=== PATIENT | female | born 1975 | race Hispanic/Latino ===

== ENCOUNTER 2016-04-01 11:50 | Emergency (ER) | payer SELFPAY ==
--- NOTE | 2016-04-01 12:40 | Emergency Department Report ---
Chief Complaint: Chest Pain Stated Complaint: ARMS TINGLING/NECK/LOWER BACK PAIN Time Seen by Provider: 04/01/16 12:34 - HPI History of Present Illness: 40-year-old female presents today with chest pain that started at midnight last night. Patient had aspirin with some relief. Also complaining of numbness in back, upper and lower extremities times one day. Positive for nausea. Denies shortness of breath or abdominal pain. - ROS Review of Systems: Per HPI - Exam Vital Signs: Vital Signs 04/01/16 11:58 Temperature 98.1 F Pulse Rate 63 Respiratory 18 Rate Blood Pressure 127/76 O2 Sat by Pulse 100 Oximetry Physical Exam: General: 40-year-old female in no acute distress. Well-developed, well- nourished. CV: Regular rate and rhythm. Lungs: Clear to auscultation bilaterally. Abdomen: No tenderness to palpation. MSE screening note: Focused history and physical exam performed. Due to findings the following was ordered: ED Disposition for MSE Condition: Stable
--- NOTE | 2016-04-01 13:14 | XRay Report ---
ROUTINE CHEST, TWO VIEWS: HISTORY: chest pain. The trachea, heart, mediastinal contour, lung christian and bony thorax are unremarkable. IMPRESSION: Unremarkable chest x-ray. No significant change since 01/18/16.
[2016-04-01 13:39] LABS: Eosinophils % (Auto) 1.8 % (0.0-4.3); Mean Corpuscular HGB Conc 33 % (30-34); Mean Corpuscular Hemoglobin 31 pg (28-32); Mean Corpuscular Volume 93 fl (79-97); Platelet Count 269 K/mm3 (140-440); Red Blood Count 4.52 M/mm3 (3.65-5.03); White Blood Count 8.2 K/mm3 (4.5-11.0)
[2016-04-01 13:52] LABS: INR 1.06 (0.87-1.13)
[2016-04-01 13:53] LABS: Partial Thromboplastin Time 27.9 Sec. (24.2-36.6)
[2016-04-01 13:58] LABS: Anion Gap 14 mmol/L; BUN/Creatinine Ratio 15.71; Blood Urea Nitrogen 11 mg/dL (7-17); Calcium 8.5 mg/dL (8.4-10.2); Carbon Dioxide 25 mmol/L (22-30); Chloride 100.4 mmol/L (98-107); Glucose 90 mg/dL (65-100); Potassium 4.7 mmol/L (3.6-5.0); Sodium 135 mmol/L (137-145)
[2016-04-01 14:02] LABS: Alanine Aminotransferase 14 units/L (7-56); Albumin 3.6 g/dL (3.9-5); Albumin/Globulin Ratio 1.4 %; Alkaline Phosphatase 45 units/L (35-129); Bilirubin,Total 0.4 mg/dL (0.1-1.2); Creatine Kinase 101 units/L (30-135); Lipase 26 units/L (13-60); Total Protein 6.1 g/dL (6.3-8.2)
[2016-04-01 14:21] LABS: Bilirubin,Direct < 0.2 mg/dL (0-0.2)
[2016-04-01 15:09] LABS: Bilirubin,Indirect 0.2 mg/dL
[2016-04-02] MEDS ORDERED: TORADOL IM ONE (02:02)
[2016-04-02] MEDS ORDERED: NORCO 5/325 PO ONE (02:02)
--- NOTE | 2016-04-02 02:07 | Emergency Department Report ---
ED Chest Pain HPI - General Chief Complaint: Chest Pain Stated Complaint: ARMS TINGLING/NECK/LOWER BACK PAIN Time Seen by Provider: 04/01/16 12:34 Source: patient Mode of arrival: Ambulatory Limitations: No Limitations - History of Present Illness Initial Comments: This is a 40-year-old female presents to the emergency department, driven in by her boyfriend, with complaints of a tingling sensation down both arms and legs as well as some sharp chest pains. These symptoms began about 24 hours ago. She tried some aspirin this morning for her symptoms without any relief. She says that the tingling sensation is really like a throbbing and some decreased sensation. She denies any slurred speech, headache, vision change or any neurological deficits otherwise. The chest pain is sharp and is reproducible to palpation. She denies any shortness of breath, vomiting, back pain or diaphoresis. She does have some occasional nausea. She has a past medical history of asthma denies any history of VA, CVA, PE/DVT. She is a tobacco smoker. She admits to occasional marijuana use but otherwise no other illicit drugs. She does not have a primary care doctor. No recent travel or sick contacts at home. Severity scale (0 -10): 10 - Related Data Previous Rx's Medication Instructions Recorded Last Taken Type ALBUTEROL Inhaler [ProAir HFA 2 puff IH QID PRN #1 inhalation 12/10/14 Unknown Rx Inhaler] Acetaminophen/Codeine [Tylenol #3] 1 tab PO Q6H PRN #14 tab 12/10/14 Unknown Rx Azithromycin [Zithromax Z-JUAN FRANCISCO] 500 mg PO DAILY #1 pack 12/10/14 Unknown Rx Prednisone [predniSONE 10 mg 10 mg PO .TAPER #1 tab.ds.pk 12/10/14 Unknown Rx (6-Day Pack, 21 Tabs)] methOCARBAMOL [Robaxin TAB] 500 mg PO BID #10 tab 01/19/15 Unknown Rx traMADol [Ultram 50 MG tab] 50 mg PO Q6HR PRN #20 tablet 03/21/15 Unknown Rx Ibuprofen [Motrin 800 MG tab] 800 mg PO Q8HR PRN #30 tablet 10/05/15 Unknown Rx Sulfamethoxazole/Trimethoprim 1 each PO BID #20 tablet 10/05/15 Unknown Rx [Bactrim DS TAB] ALBUTEROL Inhaler [ProAir HFA 2 puff IH QID PRN #1 inhalation 01/18/16 Unknown Rx Inhaler] Montelukast [Singulair] 10 mg PO QPM #30 tablet 01/18/16 Unknown Rx methylPREDNISolone [Medrol] 4 mg PO QAM #21 tab.ds.pk 01/18/16 Unknown Rx HYDROcodone/APAP 5-325 [Ferdinand 1 each PO Q6HR PRN #14 tablet 04/02/16 Unknown Rx 5/325] Ibuprofen [Motrin] 800 mg PO Q8HR PRN #20 tablet 04/02/16 Unknown Rx Allergies Allergy/AdvReac Type Severity Reaction Status Date / Time No Known Allergies Allergy Unverified 12/10/14 09:23 KIKE score - Kike Score Age > 65: (0) No Aspirin use within the Past 7 Days: (1) Yes 3 or more CAD Risk Factors: (0) No 2 or more Angina events in past 24 hrs: (0) No Known CAD with more than 50% Stenosis: (0) No Elevated Cardiac Markers: (0) No ST Deviation Greater than 0.5mm: (0) No KIKE Score: 1 ED Review of Systems ROS: Stated complaint: ARMS TINGLING/NECK/LOWER BACK PAIN Other details as noted in HPI Comment: All other systems reviewed and negative Constitutional: denies: chills, fever Eyes: denies: eye pain, eye discharge, vision change ENT: denies: ear pain, throat pain Respiratory: denies: cough, shortness of breath, wheezing Cardiovascular: chest pain. denies: palpitations Gastrointestinal: nausea. denies: abdominal pain, vomiting Genitourinary: denies: urgency, dysuria, discharge Musculoskeletal: denies: back pain, joint swelling Skin: denies: rash, lesions Neurological: paresthesias. denies: headache, weakness ED Past Medical Hx - Past Medical History Hx Asthma: Yes - Social History Smoking Status: Current Every Day Smoker Substance Use Type: None - Medications Home Medications: Home Medications Medication Instructions Recorded Confirmed Last Taken Type ALBUTEROL Inhaler [ProAir HFA 2 puff IH QID PRN #1 inhalation 12/10/14 12/12/14 Unknown Rx Inhaler] Acetaminophen/Codeine [Tylenol #3] 1 tab PO Q6H PRN #14 tab 12/10/14 12/12/14 Unknown Rx Azithromycin [Zithromax Z-JUAN FRANCISCO] 500 mg PO DAILY #1 pack 12/10/14 12/12/14 Unknown Rx Prednisone [predniSONE 10 mg 10 mg PO .TAPER #1 tab.ds.pk 12/10/14 12/12/14 Unknown Rx (6-Day Pack, 21 Tabs)] methOCARBAMOL [Robaxin TAB] 500 mg PO BID #10 tab 01/19/15 Unknown Rx traMADol [Ultram 50 MG tab] 50 mg PO Q6HR PRN #20 tablet 03/21/15 Unknown Rx Ibuprofen [Motrin 800 MG tab] 800 mg PO Q8HR PRN #30 tablet 10/05/15 Unknown Rx Sulfamethoxazole/Trimethoprim 1 each PO BID #20 tablet 10/05/15 Unknown Rx [Bactrim DS TAB] ALBUTEROL Inhaler [ProAir HFA 2 puff IH QID PRN #1 inhalation 01/18/16 Unknown Rx Inhaler] Montelukast [Singulair] 10 mg PO QPM #30 tablet 01/18/16 Unknown Rx methylPREDNISolone [Medrol] 4 mg PO QAM #21 tab.ds.pk 01/18/16 Unknown Rx HYDROcodone/APAP 5-325 [Ferdinand 1 each PO Q6HR PRN #14 tablet 04/02/16 Unknown Rx 5/325] Ibuprofen [Motrin] 800 mg PO Q8HR PRN #20 tablet 04/02/16 Unknown Rx ED Physical Exam - General Limitations: No Limitations - Other Other exam information: GENERAL: The patient is well-developed well-nourished. HEENT: Normocephalic. Atraumatic. Extraocular motions are intact. Patient has moist mucous membranes. Pupils equal reactive to light bilaterally. NECK: Supple. Trachea is midline. Full range of motion. CHEST/LUNGS: Clear to auscultation. There is no respiratory distress noted. Chest pain is reproducible to palpation of the midsternal region of the chest wall. HEART/CARDIOVASCULAR: Regular. There is no tachycardia. There is no gallop rub or murmur. ABDOMEN: Abdomen is soft, nontender. Patient has normal bowel sounds. There is no abdominal distention. SKIN: There is no rash. There is no edema. There is no diaphoresis. NEURO: The patient is awake, alert, and oriented. The patient is cooperative. The patient has no focal neurologic deficits. The patient has normal speech. Cranial nerves II through XII grossly intact. MUSCULOSKELETAL: There is no tenderness or deformity. There is no limitation range of motion. There is no evidence of acute injury. Muscle strength 5 out of 5 upper and lower semis bilaterally. Cap refill less than 2 seconds. Radial pulses +2 over 4 bilaterally. ED Course Vital Signs 04/01/16 04/01/16 11:58 22:52 Temperature 98.1 F 98.3 F Pulse Rate 63 75 Respiratory 18 18 Rate Blood Pressure 127/76 135/89 O2 Sat by Pulse 100 98 Oximetry ED Medical Decision Making - Lab Data Result diagrams: 04/01/16 13:22 04/01/16 13:22 - EKG Data -: EKG Interpreted by Me EKG shows normal: sinus rhythm, axis, intervals, QRS complexes, ST-T waves Rate: normal - EKG Data When compared to previous EKG there are: previous EKG unavailable Interpretation: normal EKG - Radiology Data Radiology results: image reviewed interpreted by me: Chest x-ray did not show any acute process. Heart is normal shape and size. No effusions. No pneumothorax. No signs of pneumonia seen. - Medical Decision Making 40-year-old female presents to the emergency Department with a 24-hour history of some chest pain and what appears to be either paresthesias versus some neuropathy. She does not have any focal, motor or sensory deficits in her cranial nerves are intact. There has been no trauma. Patient has a KIKE score of 1 due to the fact that she took some aspirin but otherwise she would be 0. She has negative on the pulmonary embolism rule out criteria and low on the Wells score criteria. EKG is normal without ST elevation VA, ischemia or dysrhythmia. Patient's labs have been unremarkable including negative troponins 3. Chest x-ray does not show any acute process including no pneumonia, CHF or pneumothorax. Patient appears safe for discharge home at this time. Whether she is having paresthesias versus neuropathy it does not appear to be any emergent condition. She is not having any back pain, numbness , paresthesias, problems with bowel or bladder. She does not appear to have any emergent neurological or back condition such as cauda equina, epidural abscess or cord compression syndrome. She will be given referrals for primary care clinics for follow-up. She will be discharged home with some pain medication. She will return to the ER with any worsening of her symptoms or any acute distress. - Differential Diagnosis neuropathy, paresthesias, VA, costochondritis Critical Care Time: No Critical care attestation.: If time is entered above; I have spent that time in minutes in the direct care of this critically ill patient, excluding procedure time. ED Disposition Clinical Impression: Paresthesias, Costochondritis, Neuropathy Disposition: DISCHARGED TO HOME OR SELFCARE Is pt being admited?: No Does the pt Need Aspirin: No Condition: Stable Instructions: Noncardiac Chest Pain (ED), Costochondritis (ED), Paresthesia (ED ) Additional Instructions: Please follow up with one of the primary care clinics that you have been given a referral to. Return to the emergency department with any worsening of your symptoms or any acute distress. You've been prescribed a medication that is sedating. Therefore this medication cannot be mixed with alcohol, or taken prior to driving, working, or being responsible for children. Prescriptions: Ibuprofen [Motrin] 800 mg PO Q8HR PRN #20 tablet PRN Reason: Pain HYDROcodone/APAP 5-325 [Ferdinand 5/325] 1 each PO Q6HR PRN #14 tablet PRN Reason: Pain Referrals: PRIMARY CARE, [Primary Care Provider] - 3-[address] [facility] [Outside] - 3-5 Days [facility] [Outside] - 3-5 Days [facility] [Outside] - 3-5 Days [facility] [Outside] - 3-5 Days Time of Disposition: 02:09
[2016-04-02 02:49] VITALS: BP 130/68
== END 2016-04-02 02:49 | disposition home or self-care (01) ==
LOC: ED 11:50
DX: M94.0 Chondrocostal junction syndrome [Tietze] (principal); R20.9 Unspecified disturbances of skin sensation; G62.9 Polyneuropathy, unspecified; J45.909 Unspecified asthma, uncomplicated; F17.200 Nicotine dependence, unspecified, uncomplicated
CPT/HCPCS: 36415; 71020; 80048; 80074; 82550; 82553; 83690; 84484; 85025; 85610; 85730; 93005; 93010; 96372; 99284; J1885

== ENCOUNTER 2016-04-08 19:25 | Emergency (ER) | payer OTHER ==
[2016-04-08 21:11] LABS: Basophils % (Auto) 0.5 % (0.0-1.8); Eosinophils % (Auto) 0.9 % (0.0-4.3); Hematocrit 43.7 % (30.3-42.9); Mean Corpuscular HGB Conc 32 % (30-34); Mean Corpuscular Hemoglobin 30 pg (28-32); Mean Corpuscular Volume 93 fl (79-97); Platelet Count 266 K/mm3 (140-440); Red Blood Count 4.71 M/mm3 (3.65-5.03); Red Cell Distribution Width 13.8 % (13.2-15.2); White Blood Count 12.4 K/mm3 (4.5-11.0)
[2016-04-08 21:26] LABS: Anion Gap 17 mmol/L; BUN/Creatinine Ratio 16.25; Blood Urea Nitrogen 13 mg/dL (7-17); Calcium 8.8 mg/dL (8.4-10.2); Carbon Dioxide 26 mmol/L (22-30); Chloride 100.7 mmol/L (98-107); Glucose 98 mg/dL (65-100); Potassium 4.4 mmol/L (3.6-5.0); Sodium 139 mmol/L (137-145)
[2016-04-09 03:28] VITALS: BP 120/66
--- NOTE | 2016-04-09 03:31 | Emergency Department Report ---
ED Chest Pain HPI - General Chief Complaint: Chest Pain Stated Complaint: CHEST PAIN, PAIN IN ARMS AND NECK Time Seen by Provider: 04/09/16 03:17 Source: patient, family Mode of arrival: Ambulatory Limitations: No Limitations - History of Present Illness Initial Comments: Patient reports long-standing history of chronic back pain. She states today she started having back pain with radiation to her chest. She feels it under the right breast. Somewhat worse with palpation. She denies any change of the pain with movement of the arms however. She denies any shortness of breath associated with this denies any paresis. Denies any specific cardiac history that she is aware of. She is a heavy smoker. MD Complaint: chest pain Onset/Timin -: Gradual, days(s) Onset: during rest Pain Location: right chest Pain Radiation: none Severity: moderate Severity scale (0 -10): 10 Quality: tightness Consistency: constant Improves With: nothing Worsens With: other (palpation) re: denies: nausea, vomting, diaphoresis, dyspnea Other Symptoms: denies: cough, fever Treatments Prior to Arrival: none Aspirin use within the Past 7 Days: (0) No - Related Data On Oral Contraceptives: No Home Medications Medication Instructions Recorded Confirmed Last Taken No Known Home Medications [No 04/09/16 04/09/16 Unknown Reported Home Medications] Allergies Allergy/AdvReac Type Severity Reaction Status Date / Time No Known Allergies Allergy Verified 04/08/16 19:47 KIKE score - Kike Score Age > 65: (0) No Aspirin use within the Past 7 Days: (0) No 3 or more CAD Risk Factors: (0) No 2 or more Angina events in past 24 hrs: (1) Yes Known CAD with more than 50% Stenosis: (0) No Elevated Cardiac Markers: (0) No ST Deviation Greater than 0.5mm: (0) No KIKE Score: 1 ED Review of Systems ROS: Stated complaint: CHEST PAIN, PAIN IN ARMS AND NECK Other details as noted in HPI Constitutional: denies: chills, fever Eyes: denies: eye pain, eye discharge, vision change ENT: denies: ear pain, throat pain Respiratory: denies: cough, shortness of breath, wheezing Cardiovascular: chest pain. denies: palpitations Endocrine: no symptoms reported Gastrointestinal: denies: abdominal pain, nausea, diarrhea Genitourinary: denies: urgency, dysuria, discharge Musculoskeletal: back pain. denies: joint swelling, arthralgia Skin: denies: rash, lesions Neurological: denies: headache, weakness, paresthesias Psychiatric: denies: anxiety, depression Hematological/Lymphatic: denies: easy bleeding, easy bruising ED Past Medical Hx - Past Medical History Hx Asthma: Yes - Surgical History Past Surgical History?: No - Social History Smoking Status: Current Every Day Smoker Substance Use Type: None - Medications Home Medications: Home Medications Medication Instructions Recorded Confirmed Last Taken Type No Known Home Medications [No 04/09/16 04/09/16 Unknown History Reported Home Medications] ED Physical Exam - General Limitations: No Limitations General appearance: alert, in no apparent distress - Head Head exam: Present: atraumatic, normocephalic - Eye Eye exam: Present: normal appearance - ENT ENT exam: Present: mucous membranes moist - Neck Neck exam: Present: normal inspection - Respiratory Respiratory exam: Present: normal lung sounds bilaterally. Absent: respiratory distress - Cardiovascular Cardiovascular Exam: Present: regular rate, normal rhythm, other (mild chest wall tenderness on the right aspect of chest. No bony step-off. No crepitance.) . Absent: systolic murmur, diastolic murmur, rubs, gallop - GI/Abdominal GI/Abdominal exam: Present: soft, normal bowel sounds - Extremities Exam Extremities exam: Present: normal inspection - Back Exam Back exam: Present: normal inspection, vertebral tenderness. Absent: muscle spasm, paraspinal tenderness - Neurological Exam Neurological exam: Present: alert, oriented X3, other (moving all extremities appropriately. Is fairly slow and demonstrates a somewhat antalgic gait.) - Psychiatric Psychiatric exam: Present: normal affect, normal mood - Skin Skin exam: Present: warm, dry, intact, normal color. Absent: rash ED Course Vital Signs 04/08/16 04/09/16 04/09/16 19:48 00:39 00:47 Temperature 98.3 F 98.6 F Pulse Rate 96 H 76 79 Respiratory 16 10 L 18 Rate Blood Pressure 124/79 Blood Pressure 119/75 [Right] O2 Sat by Pulse 98 98 100 Oximetry 04/09/16 04/09/16 04/09/16 01:00 01:31 02:01 Temperature Pulse Rate 72 73 72 Respiratory 13 16 13 Rate Blood Pressure 116/67 116/67 116/67 Blood Pressure [Right] O2 Sat by Pulse 98 98 99 Oximetry 04/09/16 04/09/16 02:31 03:01 Temperature Pulse Rate 69 64 Respiratory 14 15 Rate Blood Pressure 132/66 120/66 Blood Pressure [Right] O2 Sat by Pulse 96 98 Oximetry - Reevaluation(s) Reevaluation #1: 04/09/16 05:28 ECG here is unremarkable. Patient has a couple of risk factors but in general is low risk in my mind. Her repeat troponins are negative. She is PERC negative I have low suspicion for PE. Patient's pain seems more musculoskeletal in nature. I feel that she has some trigger points that causes her pain and question whether this could be fibromyalgia though I shudder to think of it. I did consider pleurisy is a possibility. Her symptoms are not classical for this but this may be the etiology. Chest x-ray reviewed from 7 days ago this was an unremarkable x-ray. The rest of her labs are normal as well. Given reassurance. We'll trial on anti-inflammatory medication. I did strongly encourage her to get a primary physician. I did also strongly encouraged smoking cessation. 04/09/16 05:30 ED Medical Decision Making - Lab Data Result diagrams: 04/08/16 20:52 04/08/16 20:52 - EKG Data -: EKG Interpreted by Me EKG shows normal: sinus rhythm, axis, intervals, QRS complexes, ST-T waves Rate: normal - EKG Data Interpretation: normal EKG Critical care attestation.: If time is entered above; I have spent that time in minutes in the direct care of this critically ill patient, excluding procedure time. ED Disposition Clinical Impression: Musculoskeletal chest pain Back pain Qualifiers: Back pain location: thoracic back pain Chronicity: chronic Back pain laterality : midline Qualified Code(s): M54.6 - Pain in thoracic spine Disposition: DISCHARGED TO HOME OR SELFCARE Is pt being admited?: No Does the pt Need Aspirin: No Condition: Stable Instructions: Thoracic Pain (ED) Additional Instructions: Try ibuprofen 400mg 4x a day for the next week. This may help if your chest discomfort is due to a musculoskeletal reason or pleurisy. Stop smoking. Referrals: PRIMARY CARE, [Primary Care Provider] - 3-5 Days Time of Disposition: 03:35
[2016-04-09] MEDS: TORADOL IV ONE (03:40)
== END 2016-04-09 03:49 | disposition home or self-care (01) ==
LOC: ED 19:25
DX: R07.89 Other chest pain (principal); M54.6 Pain in thoracic spine; J45.909 Unspecified asthma, uncomplicated; F17.200 Nicotine dependence, unspecified, uncomplicated
CPT/HCPCS: 36415; 80048; 84484; 85025; 93005; 93010; 96374; 99284; J1885

== ENCOUNTER 2016-11-12 19:22 | Emergency (ER) | payer SELFPAY ==
[2016-11-13] MEDS ORDERED: TESSALON PERLES PO ONE (00:14)
[2016-11-13] MEDS ORDERED: TORADOL IM ONE (00:14)
[2016-11-13 00:21] VITALS: BP 125/74
--- NOTE | 2016-11-13 00:28 | Emergency Department Report ---
- General Chief Complaint: Upper Respiratory Infection Stated Complaint: FEVER,SORENESS Time Seen by Provider: 11/13/16 00:09 Source: patient Mode of arrival: Ambulatory Limitations: No Limitations - History of Present Illness Initial Comments: This is a 40-year-old female nontoxic, well nourished in appearance, no acute signs of distress presents to the ED complaining of fever, body aches, productive cough, and sore throat 2 weeks. Patient stated she had emesis 2 times after coughing. Patient denies any abdominal pain nausea or vomiting. Patient describes cough production as yellow/green mucus production. Patient states subjective fever and has been taking [id number] Tylenol with last dose 1 hour prior to arrival to the emergency room. Patient denies sick contact. Denies hemoptysis, nausea, wheezing, vomiting, stiff neck, headache, numbness, tingling, chest pain, shortness of breath, calf pain, calf tenderness , chills. Patient denies any allergies. Past medical history includes asthma. Patient denies recent travels, long car rides or recent hospital stays. MD Complaint: fever, cough, sore throat, rhinorrhea, nasal congestion -: Gradual, week(s) (2) Severity: mild Severity scale (0 -10): 6 Quality: other (sensation of swallowing razor blades) Consistency: constant Improves With: nothing Worsens With: nothing Associated Symptoms: fever, rhinorrhea, nasal congestion, cough. denies: chills , myalgias, diaphoresis, headache, stiff neck, chest pain, shortness of breath, abdominal pain, vomiting, diarrhea, dysuria, rash, confusion, right sweats, weight loss, epistaxis, hoarseness, ear pain Treatments Prior to Arrival: none - Related Data Previous Rx's Medication Instructions Recorded Last Taken Type Azithromycin [Zithromax Z-JUAN FRANCISCO] 250 mg PO DAILY #6 tablet 11/13/16 Unknown Rx Benzonatate [Tessalon Perles] 100 mg PO Q8HR 7 Days 11/13/16 Unknown Rx Ibuprofen [Motrin 600 MG tab] 600 mg PO Q8H PRN #30 tablet 11/13/16 Unknown Rx Allergies Allergy/AdvReac Type Severity Reaction Status Date / Time No Known Allergies Allergy Verified 04/08/16 19:47 ED Review of Systems ROS: Stated complaint: FEVER,SORENESS Other details as noted in HPI Constitutional: denies: chills, fever Eyes: denies: eye pain, eye discharge, vision change ENT: throat pain. denies: ear pain Respiratory: cough. denies: shortness of breath, wheezing Cardiovascular: denies: chest pain, palpitations Endocrine: no symptoms reported Gastrointestinal: denies: abdominal pain, nausea, diarrhea Genitourinary: denies: urgency, dysuria, discharge Musculoskeletal: denies: back pain, joint swelling, arthralgia Skin: denies: rash, lesions Neurological: denies: headache, weakness, paresthesias Psychiatric: denies: anxiety, depression Hematological/Lymphatic: denies: easy bleeding, easy bruising ED Past Medical Hx - Past Medical History Previous Medical History?: Yes Hx Asthma: Yes - Surgical History Past Surgical History?: No - Social History Smoking Status: Current Every Day Smoker Substance Use Type: None - Medications Home Medications: Home Medications Medication Instructions Recorded Confirmed Last Taken Type Azithromycin [Zithromax Z-JUAN FRANCISCO] 250 mg PO DAILY #6 tablet 11/13/16 Unknown Rx Benzonatate [Tessalon Perles] 100 mg PO Q8HR 7 Days 11/13/16 Unknown Rx Ibuprofen [Motrin 600 MG tab] 600 mg PO Q8H PRN #30 tablet 11/13/16 Unknown Rx ED Physical Exam - General Limitations: No Limitations General appearance: alert, in no apparent distress - Head Head exam: Present: atraumatic, normocephalic, normal inspection - Eye Eye exam: Present: normal appearance, PERRL, EOMI. Absent: scleral icterus, conjunctival injection, nystagmus, periorbital swelling, periorbital tenderness - ENT ENT exam: Present: normal exam, mucous membranes moist, TM's normal bilaterally , normal external ear exam - Expanded ENT Exam Expanded Ear exam: Present: normal external inspection Mouth exam: Present: normal external inspection, tongue normal. Absent: drooling, trismus, muffled voice, tongue elevation, laceration Teeth exam: Present: dental caries Throat exam: Positive: tonsillar erythema, other (uvula midline. No abscess or swelling noted.). Negative: tonsillomegaly, tonsillar exudate, R peritonsillar mass, L peritonsillar mass - Neck Neck exam: Present: normal inspection, full ROM. Absent: tenderness, meningismus, lymphadenopathy, thyromegaly - Respiratory Respiratory exam: Present: normal lung sounds bilaterally. Absent: respiratory distress, wheezes, rales, rhonchi, stridor, chest wall tenderness, accessory muscle use, decreased breath sounds, prolonged expiratory - Cardiovascular Cardiovascular Exam: Present: regular rate, normal rhythm, normal heart sounds. Absent: bradycardia, tachycardia, irregular rhythm, systolic murmur, diastolic murmur, rubs, gallop - GI/Abdominal GI/Abdominal exam: Present: soft, normal bowel sounds. Absent: distended, tenderness, guarding, rebound, rigid, diminished bowel sounds - Rectal Rectal exam: Present: deferred - Extremities Exam Extremities exam: Present: normal inspection, full ROM, normal capillary refill. Absent: tenderness, pedal edema, joint swelling, calf tenderness - Back Exam Back exam: Present: normal inspection, full ROM. Absent: tenderness, CVA tenderness (R), CVA tenderness (L), muscle spasm, paraspinal tenderness, vertebral tenderness, rash noted - Neurological Exam Neurological exam: Present: alert, oriented X3, CN II-XII intact, normal gait, reflexes normal - Psychiatric Psychiatric exam: Present: normal affect, normal mood - Skin Skin exam: Present: warm, dry, intact, normal color. Absent: rash ED Course Vital Signs 11/12/16 19:47 Temperature 98.3 F Pulse Rate 81 Respiratory 20 Rate Blood Pressure 125/74 O2 Sat by Pulse 95 Oximetry - Reevaluation(s) Reevaluation #1: 11/13/16 00:28 Patient is speaking in full sentences with no signs of distress noted. Critical care attestation.: If time is entered above; I have spent that time in minutes in the direct care of this critically ill patient, excluding procedure time. ED Disposition Clinical Impression: Upper respiratory infection Qualifiers: URI type: unspecified URI Qualified Code(s): J06.9 - Acute upper respiratory infection, unspecified Disposition: DC-01 TO HOME OR SELFCARE Is pt being admited?: No Does the pt Need Aspirin: No Condition: Stable Instructions: Benzonatate (By mouth), Ibuprofen (By mouth), Azithromycin (By mouth) Additional Instructions: Follow-up with a primary care doctor in 3-5 days or if symptoms worsen or continue return to emergency room as was possible. Prescriptions: Azithromycin [Zithromax Z-JUAN FRANCISCO] 250 mg PO DAILY #6 tablet Benzonatate [Tessalon Perles] 100 mg PO Q8HR 7 Days Ibuprofen [Motrin 600 MG tab] 600 mg PO Q8H PRN #30 tablet PRN Reason: Pain Referrals: PRIMARY CAREMD [Primary Care Provider] - 3-5 Days MISTY MARTIN MD [Staff Physician] - 3-5 Days [facility] [Outside] - 3-5 Days [facility] [Outside] - 3-5 Days Forms: Work/School Release Form(ED)
--- NOTE | 2016-11-13 01:34 | XRay Report ---
FINAL REPORT PROCEDURE: XR CHEST ROUTINE 2V TECHNIQUE: PA and lateral chest radiographs were obtained. CPT 98259 HISTORY: cough COMPARISON: No prior studies are available for comparison. FINDINGS: Heart: Normal. Mediastinum/Vessels: Normal. Lungs/Pleural space: Normal. Bony thorax: No acute osseous abnormality. Other: IMPRESSION: Normal examination.
== END 2016-11-13 02:00 | disposition home or self-care (01) ==
LOC: ED 19:22
DX: J06.9 Acute upper respiratory infection, unspecified (principal); J45.909 Unspecified asthma, uncomplicated; F17.200 Nicotine dependence, unspecified, uncomplicated
CPT/HCPCS: 71020; 87400; 96372; 99283; J1885

== ENCOUNTER 2017-03-26 09:37 | Emergency (ER) | payer SELFPAY ==
[2017-03-26] MEDS ORDERED: NACL 0.9% 1000 ML 1,000 ML IV ONE ×4 (10:37→22:18)
[2017-03-26 11:25] LABS: Basophils % (Auto) 0.5 % (0.0-1.8); Eosinophils % (Auto) 0.1 % (0.0-4.3); Hematocrit 40.6 % (30.3-42.9); Hemoglobin 13.7 gm/dl (10.1-14.3); Lymphocytes # (Auto) 0.5 K/mm3 (1.2-5.4); Lymphocytes % (Auto) 9.5 % (13.4-35.0); Mean Corpuscular HGB Conc 34 % (30-34); Mean Corpuscular Hemoglobin 31 pg (28-32); Mean Corpuscular Volume 93 fl (79-97); Monocytes # (Auto) 0.3 K/mm3 (0.0-0.8); Monocytes % (Auto) 5.5 % (0.0-7.3); Platelet Count 197 K/mm3 (140-440); Red Blood Count 4.35 M/mm3 (3.65-5.03); Red Cell Distribution Width 13.6 % (13.2-15.2)
[2017-03-26 11:32] LABS: INR 0.98 (0.87-1.13)
[2017-03-26 11:33] LABS: Partial Thromboplastin Time 28.6 Sec. (24.2-36.6)
[2017-03-26 11:47] LABS: Alanine Aminotransferase 11 units/L (7-56); Albumin 3.8 g/dL (3.9-5); BUN/Creatinine Ratio 9; Blood Urea Nitrogen 6 mg/dL (7-17); Calcium 7.7 mg/dL (8.4-10.2); Hemolysis Index 4; Lipase 25 units/L (13-60)
[2017-03-26] MEDS ORDERED: ZOFRAN IV ONE (20:37)
[2017-03-26] MEDS ORDERED: TORADOL IV ONE (20:37)
[2017-03-26] MEDS ORDERED: TYLENOL PO ONE (20:37)
[2017-03-26] MEDS ORDERED: MORPHINE IV ONE (20:38)
[2017-03-26] MEDS ORDERED: K-DUR PO ONE (20:39)
[2017-03-26] MEDS ORDERED: TESSALON PERLES PO ONE (20:46)
--- NOTE | 2017-03-26 20:50 | Emergency Department Report ---
ED Fever HPI - General Chief Complaint: GI Bleed Stated Complaint: THROWING UP BLOOD Time Seen by Provider: 03/26/17 20:16 Source: patient, RN notes reviewed Exam Limitations: no limitations - History of Present Illness Initial Comments: 41-year-old female with past medical history of asthma presents to the hospital with complaints of vomiting with by mouth intolerance since 7:30 AM. Patient states she vomited a clot of blood and subsequently vomiting episodes have been blood tinged. Patient complains of generalized abdominal soreness for February 15 in intensity from vomiting and generalized body aches. Positive lightheadedness reported. Patient has had a cough productive of clear sputum for several days and developed a fever here in the ED. No sick contacts or recent travel reported. Patient did not get a flu shot this season. No complaints of diarrhea, melena, or hematochezia. ED Review of Systems ROS: Stated complaint: THROWING UP BLOOD Other details as noted in HPI Comment: All other systems reviewed and negative Other: Constitutional: As per HPI Eyes: No eye pain visual changes or discharge ENT: No ear pain or throat pain Neck: Denies pain Respiratory: Denies shortness of breath Cardiovascular: Denies chest pain, palpitations, syncope GI: As per HPI : Denies dysuria Musculoskeletal: Denies back pain, joint swelling Skin: Denies rash, lesions, erythema Neurologic: Denies headache, numbness, weakness Psychiatric: Denies suicidal ideation, hallucinations Generalized body ED Past Medical Hx - Past Medical History Previous Medical History?: Yes Hx Asthma: Yes - Surgical History Past Surgical History?: No - Social History Smoking Status: Current Every Day Smoker Substance Use Type: Non Opiate Pain - Medications Home Medications: Home Medications Medication Instructions Recorded Confirmed Last Taken Type Azithromycin [Zithromax Z-JUAN FRANCISCO] 250 mg PO DAILY #6 tablet 11/13/16 Unknown Rx Benzonatate [Tessalon Perles] 100 mg PO Q8HR 7 Days capsule 11/13/16 Unknown Rx Ibuprofen [Motrin 600 MG tab] 600 mg PO Q8H PRN #30 tablet 11/13/16 Unknown Rx HYDROcodone/APAP 5-325 [[place] 1 each PO Q6HR PRN #20 tablet 03/27/17 Unknown Rx 5/325] Ibuprofen [Motrin] 800 mg PO Q8HR PRN #30 tablet 03/27/17 Unknown Rx Ondansetron [Zofran Odt] 4 mg PO Q8HR PRN #20 tab.rapdis 03/27/17 Unknown Rx Oseltamivir [Tamiflu] 75 mg PO BID #10 cap 03/27/17 Unknown Rx ED Physical Exam - General Limitations: No Limitations - Other Other exam information: General: No limitations, patient is alert in no acute distress Head exam: Atraumatic, normocephalic Eyes exam: Normal appearance, ENT: Moist mucous membrane, normal oropharynx Neck exam: Normal inspection, full range of motion, no meningismus nontender Respiratory exam: Clear to auscultation bilateral, no wheezes, rales, crackles Cardiovascular: Normal rate and rhythm, normal heart sounds Abdomen: Soft, nondistended, generalized tenderness greatest in mid an epigastric abdominal Extremity: Full range of motion normal inspection no deformity Back: Normal Inspection, full range of motion, no tenderness Neurologic: Alert, oriented x3, cranial nerves intact, no motor or sensory deficit Psychiatric: normal affect, normal mood Skin: Warm, dry, intact ED Course Vital Signs 03/26/17 03/26/17 03/26/17 10:34 16:45 20:45 Temperature 99.8 F H 101.7 F H Pulse Rate 80 Respiratory 20 18 Rate Blood Pressure 125/80 Blood Pressure [Left] O2 Sat by Pulse 99 Oximetry 03/26/17 03/26/17 03/26/17 21:15 21:48 21:50 Temperature 101.1 F H Pulse Rate 114 H Respiratory 18 18 20 Rate Blood Pressure Blood Pressure 115/67 [Left] O2 Sat by Pulse 95 95 Oximetry 03/26/17 03/26/17 03/26/17 21:52 21:55 22:25 Temperature Pulse Rate Respiratory 18 18 18 Rate Blood Pressure Blood Pressure [Left] O2 Sat by Pulse Oximetry 03/26/17 03/26/17 22:52 23:31 Temperature 98.6 F Pulse Rate Respiratory 18 Rate Blood Pressure Blood Pressure [Left] O2 Sat by Pulse Oximetry ED Medical Decision Making - Lab Data Result diagrams: 03/26/17 10:58 03/26/17 10:58 Lab Results 03/26/17 03/26/17 03/26/17 Range/Units 10:58 10:58 10:58 WBC 5.7 (4.5-11.0) K/mm3 RBC 4.35 (3.65-5.03) M/mm3 Hgb 13.7 (10.1-14.3) gm/dl Hct 40.6 (30.3-42.9) % MCV 93 (79-97) fl MCH 31 (28-32) pg MCHC 34 (30-34) % RDW 13.6 (13.2-15.2) % Plt Count 197 (140-440) K/mm3 Lymph % (Auto) 9.5 L (13.4-35.0) % [place] % (Auto) 5.5 (0.0-7.3) % Eos % (Auto) 0.1 (0.0-4.3) % Baso % (Auto) 0.5 (0.0-1.8) % Lymph # 0.5 L (1.2-5.4) K/mm3 [place] # 0.3 (0.0-0.8) K/mm3 Eos # 0.0 (0.0-0.4) K/mm3 Baso # 0.0 (0.0-0.1) K/mm3 Seg Neutrophils % 84.4 H (40.0-70.0) % Seg Neutrophils # 4.8 (1.8-7.7) K/mm3 PT 13.5 (12.2-14.9) Sec. INR 0.98 (0.87-1.13) APTT 28.6 (24.2-36.6) Sec. Sodium 142 (137-145) mmol/L Potassium 3.5 L (3.6-5.0) mmol/L Chloride 103.0 (98-107) mmol/L Carbon Dioxide 25 (22-30) mmol/L Anion Gap 18 mmol/L BUN 6 L (7-17) mg/dL Creatinine 0.7 (0.7-1.2) mg/dL Estimated GFR > 60 ml/min BUN/Creatinine Ratio 9 % Glucose 94 (65-100) mg/dL Calcium 7.7 L (8.4-10.2) mg/dL Total Bilirubin 0.40 (0.1-1.2) mg/dL AST 16 (5-40) units/L ALT 11 (7-56) units/L Alkaline Phosphatase 39 (35-129) units/L Total Protein 6.0 L (6.3-8.2) g/dL Albumin 3.8 L (3.9-5) g/dL Albumin/Globulin Ratio 1.7 % Lipase 25 (13-60) units/L Urine Color (Yellow) Urine Turbidity (Clear) Urine pH (5.0-7.0) Ur Specific [place] (1.003-1.030) Urine Protein (Negative) mg/dL Urine Glucose (UA) (Negative) mg/dL Urine Ketones (Negative) mg/dL Urine Blood (Negative) Urine Nitrite (Negative) Urine Bilirubin (Negative) Urine Urobilinogen (<2.0) mg/dL Ur Leukocyte Esterase (Negative) Urine WBC (Auto) (0.0-6.0) /HPF Urine RBC (Auto) (0.0-6.0) /HPF U Epithel Cells (Auto) (0-13.0) /HPF Amorphous Crystals Blood Type Antibody Screen 03/26/17 03/26/17 Range/Units 10:58 Unknown WBC (4.5-11.0) K/mm3 RBC (3.65-5.03) M/mm3 Hgb (10.1-14.3) gm/dl Hct (30.3-42.9) % MCV (79-97) fl MCH (28-32) pg MCHC (30-34) % RDW (13.2-15.2) % Plt Count (140-440) K/mm3 Lymph % (Auto) (13.4-35.0) % [place] % (Auto) (0.0-7.3) % Eos % (Auto) (0.0-4.3) % Baso % (Auto) (0.0-1.8) % Lymph # (1.2-5.4) K/mm3 [place] # (0.0-0.8) K/mm3 Eos # (0.0-0.4) K/mm3 Baso # (0.0-0.1) K/mm3 Seg Neutrophils % (40.0-70.0) % Seg Neutrophils # (1.8-7.7) K/mm3 PT (12.2-14.9) Sec. INR (0.87-1.13) APTT (24.2-36.6) Sec. Sodium (137-145) mmol/L Potassium (3.6-5.0) mmol/L Chloride (98-107) mmol/L Carbon Dioxide (22-30) mmol/L Anion Gap mmol/L BUN (7-17) mg/dL Creatinine (0.7-1.2) mg/dL Estimated GFR ml/min BUN/Creatinine Ratio % Glucose (65-100) mg/dL Calcium (8.4-10.2) mg/dL Total Bilirubin (0.1-1.2) mg/dL AST (5-40) units/L ALT (7-56) units/L Alkaline Phosphatase (35-129) units/L Total Protein (6.3-8.2) g/dL Albumin (3.9-5) g/dL Albumin/Globulin Ratio % Lipase (13-60) units/L Urine Color Straw (Yellow) Urine Turbidity Clear (Clear) Urine pH 6.0 (5.0-7.0) Ur Specific [place] 1.003 (1.003-1.030) Urine Protein <15 mg/dl (Negative) mg/dL Urine Glucose (UA) Neg (Negative) mg/dL Urine Ketones Tr (Negative) mg/dL Urine Blood Neg (Negative) Urine Nitrite Neg (Negative) Urine Bilirubin Neg (Negative) Urine Urobilinogen < 2.0 (<2.0) mg/dL Ur Leukocyte Esterase Neg (Negative) Urine WBC (Auto) 1.0 (0.0-6.0) /HPF Urine RBC (Auto) 1.0 (0.0-6.0) /HPF U Epithel Cells (Auto) 1.0 (0-13.0) /HPF Amorphous Crystals 1+ Blood Type A POSITIVE Antibody Screen Negative - Radiology Data Radiology results: report reviewed Chest x-ray: No acute findings - Medical Decision Making Influenza positive Likely cause of patient's symptoms Improved with ED meds Will discharge on symptomatic treatment and Tamiflu - Differential Diagnosis influenza, viral syndrome, gastritis, pneumonia, pancreatitis Critical Care Time: No Critical care attestation.: If time is entered above; I have spent that time in minutes in the direct care of this critically ill patient, excluding procedure time. ED Disposition Clinical Impression: Influenza A Disposition: DC-01 TO HOME OR SELFCARE Is pt being admited?: No Does the pt Need Aspirin: No Condition: Stable Instructions: Influenza (ED) Additional Instructions: Take the medication as prescribed. Return if symptoms worsen. Follow-up with your doctor or the doctor provided for further workup and evaluation. Prescriptions: HYDROcodone/APAP 5-325 [[place] 5/325] 1 each PO Q6HR PRN #20 tablet PRN Reason: Pain Ibuprofen [Motrin] 800 mg PO Q8HR PRN #30 tablet PRN Reason: Pain Ondansetron [Zofran Odt] 4 mg PO Q8HR PRN #20 tab.rapdis PRN Reason: Nausea And Vomiting Oseltamivir [Tamiflu] 75 mg PO BID #10 cap Referrals: PRIMARY CARE, [Primary Care Provider] - 3-5 Days [facility] [Provider Group] - 3-5 Days MARIA DE JESUS REYES MD [Staff Physician] - 3-5 Days Forms: Accompanied Note, Work/School Release Form(ED) Time of Disposition: 01:05
--- NOTE | 2017-03-26 21:37 | XRay Report ---
FINAL REPORT EXAM: XR CHEST ROUTINE 2V HISTORY: cough fever TECHNIQUE: Two view chest PA and lateral PRIORS: Comparison is November 12, 2016 FINDINGS: Cardiac and mediastinal contours are unremarkable. No focal pulmonary infiltrate is identified. No pleural fluid collection seen. Pulmonary vasculature is unremarkable. IMPRESSION: Negative two-view chest
[2017-03-26] MEDS ORDERED: PROTONIX IV ONE (21:50)
[2017-03-26] MEDS ORDERED: TAMIFLU PO ONE (22:18)
[2017-03-26] MEDS ORDERED: ROBITUSSIN AC PO ONE (23:24)
[2017-03-27 00:48] LABS: Amorphous Crystals,Urine 1+; Bilirubin,Urine NEG (Negative); Blood,Urine NEG (Negative); Color,Urine Straw (Yellow); Nitrite,Urine NEG (Negative); Protein,Urine <15 mg/dL mg/dL (Negative); Urobilinogen,Urine < 2.0 mg/dL (<2.0)
[2017-03-27 02:21] VITALS: BP 109/57
== END 2017-03-27 02:24 | disposition home or self-care (01) ==
LOC: ED 09:37
DX: J10.1 Influenza due to other identified influenza virus with other respiratory manifestations (principal); R10.13 Epigastric pain; F17.200 Nicotine dependence, unspecified, uncomplicated; J45.909 Unspecified asthma, uncomplicated
CPT/HCPCS: 36415; 71046; 80053; 81001; 82271; 83690; 85025; 85610; 85730; 86850; 86900; 86901; 87400; 93005; 93010; 96361; 96374; 96375; 99284; C9113; J1885; J2270; J2405; J7030

== ENCOUNTER 2017-11-15 17:23 | Emergency (ER) | payer SELFPAY ==
--- NOTE | 2017-11-15 18:17 | XRay Report ---
FINAL REPORT EXAM: XR CHEST ROUTINE 2V HISTORY: Chest Pain COMPARISON: None available. FINDINGS:: Frontal and lateral views of the chest obtained. Cardiac silhouette is within normal limits. No focal consolidation or effusion. No pneumothorax. Visualized bony thorax is grossly intact. IMPRESSION:: No acute findings.
[2017-11-15 18:31] LABS: Basophils % (Auto) 0.2 % (0.0-1.8); Eosinophils # (Auto) 0.2 K/mm3 (0.0-0.4); Eosinophils % (Auto) 1.6 % (0.0-4.3); Hematocrit 37.8 % (30.3-42.9); Hemoglobin 12.6 gm/dl (10.1-14.3); Lymphocytes # (Auto) 1.2 K/mm3 (1.2-5.4); Lymphocytes % (Auto) 12.5 % (13.4-35.0); Mean Corpuscular HGB Conc 33 % (30-34); Mean Corpuscular Hemoglobin 32 pg (28-32); Mean Corpuscular Volume 95 fl (79-97); Monocytes # (Auto) 0.7 K/mm3 (0.0-0.8); Platelet Count 249 K/mm3 (140-440); Red Blood Count 3.98 M/mm3 (3.65-5.03)
[2017-11-15 18:53] LABS: BUN/Creatinine Ratio 10; Blood Urea Nitrogen 7 mg/dL (7-17); Calcium 8.1 mg/dL (8.4-10.2); Hemolysis Index 2
[2017-11-15] MEDS ORDERED: NACL 0.9% 1000 ML 1,000 ML IV ONE ×2 (21:53→23:57)
[2017-11-15] MEDS ORDERED: ATROVENT IH ONE (21:59)
[2017-11-15] MEDS ORDERED: PROVENTIL IH ONE (21:59)
[2017-11-15] MEDS ORDERED: ZOFRAN IV ONE (21:59)
[2017-11-15] MEDS ORDERED: SOLU-Medrol IV ONE (21:59)
--- NOTE | 2017-11-15 22:04 | Emergency Department Report ---
ED N/V/D HPI - General Chief complaint: Chest Pain Stated complaint: CHEST PAIN/ Time Seen by Provider: 11/15/17 21:17 Source: patient Mode of arrival: Ambulatory Limitations: No Limitations - History of Present Illness Initial comments: 41 year old female with a past medical history of asthma presents to the hospital with nausea, vomiting, diarrhea, and chest pain 2 days. Patient has had about 3-4 episodes of nausea, vomiting, and loose stools her day. She complains of chills without fever. She denies melena, hematochezia, or hematemesis. Decreased urinary output reported. Patient complains of generalized intermittent and posterior thoracic wall pain that is constant, worse with palpation and movement. No alleviating factors reported. Patient also presents with wheezing and shortness of breath. - Related Data Home Medications Medication Instructions Recorded Confirmed Last Taken Ibuprofen 200 mg PO Q6H PRN 11/15/17 11/15/17 Unknown Previous Rx's Medication Instructions Recorded Last Taken Type Albuterol Sulfate [Ventolin HFA] 2 puff IH Q4H PRN #1 hfa.aer.ad 11/16/17 Unknown Rx HYDROcodone/APAP 5-325 [[place] 1 each PO Q6HR PRN #20 tablet 11/16/17 Unknown Rx 5/325] Ibuprofen [Motrin] 800 mg PO Q8HR PRN #30 tablet 11/16/17 Unknown Rx Loperamide [Imodium] 2 mg PO Q2HR #20 capsule 11/16/17 Unknown Rx Ondansetron [Zofran Odt] 4 mg PO Q8HR PRN #20 tab.rapdis 11/16/17 Unknown Rx predniSONE [Deltasone] 40 mg PO QDAY 5 Days tab 11/16/17 Unknown Rx Allergies Allergy/AdvReac Type Severity Reaction Status Date / Time No Known Allergies Allergy Verified 04/08/16 19:47 ED Review of Systems ROS: Stated complaint: CHEST PAIN/ Other details as noted in HPI Comment: All other systems reviewed and negative ED Past Medical Hx - Past Medical History Previous Medical History?: Yes Hx Asthma: Yes - Surgical History Past Surgical History?: No - Social History Smoking Status: Current Every Day Smoker Substance Use Type: None - Medications Home Medications: Home Medications Medication Instructions Recorded Confirmed Last Taken Type Ibuprofen 200 mg PO Q6H PRN 11/15/17 11/15/17 Unknown History Albuterol Sulfate [Ventolin HFA] 2 puff IH Q4H PRN #1 hfa.aer.ad 11/16/17 Unknown Rx HYDROcodone/APAP 5-325 [[place] 1 each PO Q6HR PRN #20 tablet 11/16/17 Unknown Rx 5/325] Ibuprofen [Motrin] 800 mg PO Q8HR PRN #30 tablet 11/16/17 Unknown Rx Loperamide [Imodium] 2 mg PO Q2HR #20 capsule 11/16/17 Unknown Rx Ondansetron [Zofran Odt] 4 mg PO Q8HR PRN #20 tab.rapdis 11/16/17 Unknown Rx predniSONE [Deltasone] 40 mg PO QDAY 5 Days tab 11/16/17 Unknown Rx ED Physical Exam - General Limitations: No Limitations - Other Other exam information: General: No limitations, patient is alert in no acute distress Head exam: Atraumatic, normocephalic Eyes exam: Normal appearance ENT: Moist mucous membrane, normal oropharynx Neck exam: Normal inspection, full range of motion, no meningismus nontender Respiratory exam: Anterior posterior chest wall tenderness. Bladder wheezing, no accessory muscle use or tachypnea Cardiovascular: Normal rate and rhythm, normal heart sounds Abdomen: Soft, nondistended, and nontender, with normal bowel sounds, no rebound, or guarding Extremity: Full range of motion normal inspection no deformity, no calf tenderness or edema Back: Normal Inspection, full range of motion, no tenderness Neurologic: Alert, oriented x3, cranial nerves intact, no motor or sensory deficit Psychiatric: normal affect, normal mood Skin: Warm, dry, intact ED Course Vital Signs 11/15/17 11/15/17 11/15/17 17:33 20:46 20:48 Temperature 98.2 F Pulse Rate 71 76 75 Respiratory 21 16 Rate Blood Pressure 128/71 112/65 Blood Pressure 112/65 [Right] O2 Sat by Pulse 98 97 95 Oximetry 11/15/17 11/15/17 11/15/17 21:00 21:16 21:52 Temperature Pulse Rate 67 73 81 Respiratory 15 21 21 Rate Blood Pressure 121/73 119/70 119/74 Blood Pressure [Right] O2 Sat by Pulse 96 95 96 Oximetry 11/15/17 11/15/17 11/15/17 22:00 22:16 22:30 Temperature Pulse Rate 75 73 72 Respiratory 21 28 H 18 Rate Blood Pressure 101/65 110/69 120/75 Blood Pressure [Right] O2 Sat by Pulse 96 96 100 Oximetry 11/15/17 11/15/17 11/15/17 22:45 22:46 22:56 Temperature Pulse Rate 89 100 H Respiratory 20 26 H 25 H Rate Blood Pressure 99/51 118/60 Blood Pressure [Right] O2 Sat by Pulse 100 100 Oximetry 11/15/17 11/15/17 11/15/17 23:15 23:45 23:56 Temperature Pulse Rate 115 H Respiratory 25 H 16 Rate Blood Pressure 118/54 118/60 Blood Pressure [Right] O2 Sat by Pulse 98 94 Oximetry 11/16/17 11/16/17 11/16/17 00:04 02:15 03:25 Temperature 98.8 F Pulse Rate Respiratory 20 Rate Blood Pressure 110/50 Blood Pressure [Right] O2 Sat by Pulse 94 Oximetry - Reevaluation(s) Reevaluation #1: 11/16/17 ED stay patient have recurrent and worsening chest pain described as a pressure. Pain remained reproducible on exam. EKG repeated and reveals no acute changes. Repeat troponin remains negative. Patient also had a d-dimer added that was negative. Additional pain medicine was provided. ED Medical Decision Making - Lab Data Result diagrams: 11/15/17 18:14 11/15/17 18:14 Lab Results 11/15/17 11/15/17 11/16/17 Range/Units 18:14 18:14 01:15 WBC 9.8 (4.5-11.0) K/mm3 RBC 3.98 (3.65-5.03) M/mm3 Hgb 12.6 (10.1-14.3) gm/dl Hct 37.8 (30.3-42.9) % MCV 95 (79-97) fl MCH 32 (28-32) pg MCHC 33 (30-34) % RDW 14.0 (13.2-15.2) % Plt Count 249 (140-440) K/mm3 Lymph % (Auto) 12.5 L (13.4-35.0) % [place] % (Auto) 7.0 (0.0-7.3) % Eos % (Auto) 1.6 (0.0-4.3) % Baso % (Auto) 0.2 (0.0-1.8) % Lymph # 1.2 (1.2-5.4) K/mm3 [place] # 0.7 (0.0-0.8) K/mm3 Eos # 0.2 (0.0-0.4) K/mm3 Baso # 0.0 (0.0-0.1) K/mm3 Seg Neutrophils % 78.7 H (40.0-70.0) % Seg Neutrophils # 7.7 (1.8-7.7) K/mm3 D-Dimer (0-234) ng/mlDDU Sodium 140 (137-145) mmol/L Potassium 4.0 (3.6-5.0) mmol/L Chloride 101.2 (98-107) mmol/L Carbon Dioxide 26 (22-30) mmol/L Anion Gap 17 mmol/L BUN 7 (7-17) mg/dL Creatinine 0.7 (0.7-1.2) mg/dL Estimated GFR > 60 ml/min BUN/Creatinine Ratio 10 % Glucose 96 (65-100) mg/dL Calcium 8.1 L (8.4-10.2) mg/dL Troponin T < 0.010 (0.00-0.029) ng/mL Urine Color (Yellow) Urine Turbidity (Clear) Urine pH (5.0-7.0) Ur Specific [place] (1.003-1.030) Urine Protein (Negative) mg/dL Urine Glucose (UA) (Negative) mg/dL Urine Ketones (Negative) mg/dL Urine Blood (Negative) Urine Nitrite (Negative) Urine Bilirubin (Negative) Urine Urobilinogen (<2.0) mg/dL Ur Leukocyte Esterase (Negative) Urine WBC (Auto) (0.0-6.0) /HPF Urine RBC (Auto) (0.0-6.0) /HPF U Epithel Cells (Auto) (0-13.0) /HPF Urine Bacteria (Auto) (Negative) /HPF Urine Mucus /HPF Urine HCG, Qual Negative (Negative) 11/16/17 11/16/17 11/16/17 Range/Units 01:15 03:03 03:24 WBC (4.5-11.0) K/mm3 RBC (3.65-5.03) M/mm3 Hgb (10.1-14.3) gm/dl Hct (30.3-42.9) % MCV (79-97) fl MCH (28-32) pg MCHC (30-34) % RDW (13.2-15.2) % Plt Count (140-440) K/mm3 Lymph % (Auto) (13.4-35.0) % [place] % (Auto) (0.0-7.3) % Eos % (Auto) (0.0-4.3) % Baso % (Auto) (0.0-1.8) % Lymph # (1.2-5.4) K/mm3 [place] # (0.0-0.8) K/mm3 Eos # (0.0-0.4) K/mm3 Baso # (0.0-0.1) K/mm3 Seg Neutrophils % (40.0-70.0) % Seg Neutrophils # (1.8-7.7) K/mm3 D-Dimer 224.08 (0-234) ng/mlDDU Sodium (137-145) mmol/L Potassium (3.6-5.0) mmol/L Chloride (98-107) mmol/L Carbon Dioxide (22-30) mmol/L Anion Gap mmol/L BUN (7-17) mg/dL Creatinine (0.7-1.2) mg/dL Estimated GFR ml/min BUN/Creatinine Ratio % Glucose (65-100) mg/dL Calcium (8.4-10.2) mg/dL Troponin T < 0.010 (0.00-0.029) ng/mL Urine Color Yellow (Yellow) Urine Turbidity Slightly-cloudy (Clear) Urine pH 7.0 (5.0-7.0) Ur Specific [place] 1.004 (1.003-1.030) Urine Protein <15 mg/dl (Negative) mg/dL Urine Glucose (UA) Neg (Negative) mg/dL Urine Ketones Neg (Negative) mg/dL Urine Blood Neg (Negative) Urine Nitrite Neg (Negative) Urine Bilirubin Neg (Negative) Urine Urobilinogen < 2.0 (<2.0) mg/dL Ur Leukocyte Esterase Neg (Negative) Urine WBC (Auto) < 1.0 (0.0-6.0) /HPF Urine RBC (Auto) 1.0 (0.0-6.0) /HPF U Epithel Cells (Auto) 11.0 (0-13.0) /HPF Urine Bacteria (Auto) 1+ (Negative) /HPF Urine Mucus Few /HPF Urine HCG, Qual (Negative) - EKG Data -: EKG Interpreted by Me EKG shows normal: sinus rhythm, axis (qrs 87), QRS complexes (qrsd 87), ST-T waves (no stemi/t inv) Rate: normal (78) - EKG Data When compared to previous EKG there are: no significant change - Radiology Data Radiology results: report reviewed FINAL REPORT EXAM: XR CHEST ROUTINE 2V HISTORY: Chest Pain COMPARISON: None available. FINDINGS:: Frontal and lateral views of the chest obtained. Cardiac silhouette is within normal limits. No focal consolidation or effusion. No pneumothorax. Visualized bony thorax is grossly intact. IMPRESSION:: No acute findings. - Medical Decision Making Nausea, vomiting, diarrhea: Secondary to acute gastroenteritis Tolerating by mouth Associated dehydration treated with normal saline (2 L needed to produce urine sample) cp Reproducible No cardiac risk factors are minimal EKG, troponin negative 2 Chest x-ray negative D-dimer negative Treated symptomatically for pain Asthma with associated wheezing Improve Solu-Medrol and nebs Patient does not have been nebulizer or inhaler at home Albuterol and prednisone will be prescribed Follow-up will be recommended patient stable for discharge - Differential Diagnosis costochondritis, pneumonia, viral syndrome, gastroenteritis Critical Care Time: No Critical care attestation.: If time is entered above; I have spent that time in minutes in the direct care of this critically ill patient, excluding procedure time. ED Disposition Clinical Impression: Gastroenteritis, Acute asthma exacerbation, Costochondritis, acute Disposition: DC-01 TO HOME OR SELFCARE Is pt being admited?: No Does the pt Need Aspirin: No Condition: Stable Instructions: Asthma (ED), Costochondritis (ED), Gastroenteritis (ED) Additional Instructions: Take the medication as prescribed. Follow up with your doctor with a doctor provided. Return if symptoms worsen as indicated by your discharge instructions Prescriptions: Albuterol Sulfate [Ventolin HFA] 2 puff IH Q4H PRN #1 hfa.aer.ad PRN Reason: Shortness Of Breath HYDROcodone/APAP 5-325 [[place] 5/325] 1 each PO Q6HR PRN #20 tablet PRN Reason: Pain Ibuprofen [Motrin] 800 mg PO Q8HR PRN #30 tablet PRN Reason: Pain, Moderate (4-6) Loperamide [Imodium] 2 mg PO Q2HR #20 capsule Ondansetron [Zofran Odt] 4 mg PO Q8HR PRN #20 tab.rapdis PRN Reason: Nausea And Vomiting predniSONE [Deltasone] 40 mg PO QDAY 5 Days tab Referrals: CHELE MARS MD [Staff Physician] - 3-5 Days [facility] [Provider Group] - 3-5 Days Time of Disposition: 04:55
[2017-11-15] MEDS ORDERED: NORCO 5/325 PO ONE (22:28)
[2017-11-15] MEDS ORDERED: TORADOL IV ONE (22:28)
[2017-11-16 01:42] LABS: Bacteria,Urine 1+ /HPF (Negative); Bilirubin,Urine NEG (Negative); Blood,Urine NEG (Negative); Color,Urine Yellow (Yellow); Mucus,Urine FEW /HPF; Protein,Urine <15 mg/dL mg/dL (Negative); Urobilinogen,Urine < 2.0 mg/dL (<2.0); WBC,Urine < 1.0 /HPF (0.0-6.0)
[2017-11-16 01:48] LABS: HCG Qualitative,Urine Negative (Negative)
[2017-11-16] MEDS ORDERED: NORCO 5/325 PO ONE (02:50)
[2017-11-16] MEDS ORDERED: ZOFRAN IV ONE (03:17)
[2017-11-16 05:30] VITALS: BP 109/60
== END 2017-11-16 05:30 | disposition home or self-care (01) ==
LOC: ED 17:23
DX: R11.2 Nausea with vomiting, unspecified (principal); M94.0 Chondrocostal junction syndrome [Tietze]; K52.9 Noninfective gastroenteritis and colitis, unspecified; J45.909 Unspecified asthma, uncomplicated; F17.200 Nicotine dependence, unspecified, uncomplicated
CPT/HCPCS: 36415; 71046; 80048; 81001; 81025; 84484; 85025; 85379; 93005; 93010; 96361; 96374; 96375; 96376; 99284; J1885; J2405; J2930; J7030

== ENCOUNTER 2017-11-21 20:32 | Emergency (ER) | payer SELFPAY ==
[2017-11-21 22:20] LABS: Bilirubin,Urine NEG (Negative); Blood,Urine SM (Negative); Calcium Oxalate Crystals,Urine 3+; Color,Urine Yellow (Yellow); Mucus,Urine FEW /HPF; Protein,Urine <15 mg/dL mg/dL (Negative); Urobilinogen,Urine < 2.0 mg/dL (<2.0)
[2017-11-21 22:46] LABS: Hematocrit 33.5 % (30.3-42.9); Hemoglobin 11.3 gm/dl (10.1-14.3); Mean Corpuscular HGB Conc 34 % (30-34); Mean Corpuscular Hemoglobin 32 pg (28-32); Mean Corpuscular Volume 95 fl (79-97); Platelet Count 322 K/mm3 (140-440); Red Blood Count 3.51 M/mm3 (3.65-5.03); Red Cell Distribution Width 13.8 % (13.2-15.2)
[2017-11-22 00:23] LABS: Basophils % (Manual) 0 % (0.0-1.8); RBC Morphology Normal; Total Cells Counted 100
[2017-11-22 00:24] LABS: Platelet Estimate Consistent w Auto
[2017-11-22 08:05] LABS: Hematocrit 35.7 % (30.3-42.9); Hemoglobin 11.8 gm/dl (10.1-14.3); Mean Corpuscular HGB Conc 33 % (30-34); Mean Corpuscular Hemoglobin 32 pg (28-32); Mean Corpuscular Volume 95 fl (79-97); Platelet Count 321 K/mm3 (140-440); Red Blood Count 3.76 M/mm3 (3.65-5.03); Red Cell Distribution Width 13.9 % (13.2-15.2)
--- NOTE | 2017-11-22 09:52 | Emergency Department Report ---
ED Abdominal Pain HPI - General Chief Complaint: Vaginal Bleeding Stated Complaint: ABD PAIN Time Seen by Provider: 11/22/17 08:59 Source: patient Mode of arrival: Ambulatory Limitations: No Limitations - History of Present Illness MD Complaint: abdominal pain -: Gradual, days(s) Location: diffuse Migration to: no migration Severity: moderate Severity scale (0 -10): 10 Quality: cramping Consistency: intermittent Improves With: nothing Worsens With: nothing Associated Symptoms: chills. denies: nausea, vomiting, diarrhea, fever, constipation, dysuria, hematemesis, hematochezia, melena, hematuria, anorexia, syncope Treatments Prior to Arrival: NSAIDs, prescription analgesics - Related Data LMP (females 10-50): 1 month Previous Rx's Medication Instructions Recorded Last Taken Type Albuterol Sulfate [Ventolin HFA] 2 puff IH Q4H PRN #1 hfa.aer.ad 11/16/17 Unknown Rx Ondansetron [Zofran Odt] 4 mg PO Q8HR PRN #20 tab.rapdis 11/16/17 Unknown Rx Ciprofloxacin HCl [Cipro] 500 mg PO BID #20 tablet 11/22/17 Unknown Rx Dicyclomine [Bentyl] 10 mg PO QID PRN #10 capsule 11/22/17 Unknown Rx Ondansetron [Zofran TAB] 4 mg PO Q8HR PRN #10 tablet 11/22/17 Unknown Rx metroNIDAZOLE [Flagyl] 500 mg PO Q12HR #14 tab 11/22/17 Unknown Rx Allergies Allergy/AdvReac Type Severity Reaction Status Date / Time No Known Allergies Allergy Verified 04/08/16 19:47 ED Review of Systems ROS: Stated complaint: ABD PAIN Other details as noted in HPI Comment: All other systems reviewed and negative Constitutional: chills Eyes: denies: eye pain ENT: denies: ear pain, throat pain Respiratory: denies: cough, orthopnea Cardiovascular: denies: chest pain, palpitations, dyspnea on exertion, orthopnea Endocrine: denies: excessive sweating, flushing, intolerance to cold, intolerance to heat Gastrointestinal: abdominal pain. denies: nausea, vomiting, diarrhea, constipation, hematemesis Genitourinary: denies: urgency, dysuria Musculoskeletal: denies: back pain Skin: denies: rash, lesions Neurological: denies: headache, weakness Psychiatric: denies: anxiety, depression Hematological/Lymphatic: denies: easy bleeding Other: just seen in er for similar co by Dr Kebede 41 year old female with a past medical history of asthma presents to the hospital with nausea, vomiting, diarrhea, and chest pain 2 days. Patient has had about 3-4 episodes of nausea, vomiting, and loose stools her day. She complains of chills without fever. She denies melena, hematochezia, or hematemesis. Decreased urinary output reported. Patient complains of generalized intermittent and posterior thoracic wall pain that is constant, worse with palpation and movement. dc home with zofran and prednisone but got no better ED Past Medical Hx - Past Medical History Hx Asthma: Yes - Surgical History Past Surgical History?: No - Family History Family history: no significant - Social History Smoking Status: Current Every Day Smoker Substance Use Type: None - Medications Home Medications: Home Medications Medication Instructions Recorded Confirmed Last Taken Type Albuterol Sulfate [Ventolin HFA] 2 puff IH Q4H PRN #1 hfa.aer.ad 11/16/17 Unknown Rx Ondansetron [Zofran Odt] 4 mg PO Q8HR PRN #20 tab.rapdis 11/16/17 Unknown Rx Ciprofloxacin HCl [Cipro] 500 mg PO BID #20 tablet 11/22/17 Unknown Rx Dicyclomine [Bentyl] 10 mg PO QID PRN #10 capsule 11/22/17 Unknown Rx Ondansetron [Zofran TAB] 4 mg PO Q8HR PRN #10 tablet 11/22/17 Unknown Rx metroNIDAZOLE [Flagyl] 500 mg PO Q12HR #14 tab 11/22/17 Unknown Rx ED Physical Exam - General Limitations: No Limitations General appearance: alert, in no apparent distress, anxious - Head Head exam: Present: atraumatic - Eye Eye exam: Present: PERRL, EOMI - ENT ENT exam: Present: mucous membranes moist - Neck Neck exam: Present: normal inspection. Absent: tenderness - Respiratory Respiratory exam: Present: normal lung sounds bilaterally. Absent: respiratory distress, wheezes, rales - Cardiovascular Cardiovascular Exam: Present: regular rate, bradycardia (this is chronic for her. no cp today. trops have been normal on previous visit. no palpitations or dizziness. she will need cards follow up) - GI/Abdominal GI/Abdominal exam: Present: soft, tenderness (mild llq), normal bowel sounds, other (obese). Absent: distended, guarding, rebound, rigid, diminished bowel sounds, hyperactive bowel sounds, hypoactive bowel sounds, organomegaly, mass, bruit, pulsatile mass, hernia - Rectal Rectal exam: Present: deferred - Extremities Exam Extremities exam: Present: normal inspection - Back Exam Back exam: Present: normal inspection. Absent: CVA tenderness (R), CVA tenderness (L) - Neurological Exam Neurological exam: Present: alert, oriented X3 - Psychiatric Psychiatric exam: Present: normal affect, normal mood - Skin Skin exam: Present: warm, dry, intact ED Course Vital Signs 11/21/17 11/21/17 11/22/17 20:40 21:18 02:35 Temperature 99.5 F 98.5 F Pulse Rate 44 L 50 L 54 L Respiratory 18 16 12 Rate Blood Pressure 148/77 148/77 152/85 Blood Pressure [Left] O2 Sat by Pulse 96 96 98 Oximetry 11/22/17 11/22/17 07:45 09:13 Temperature Pulse Rate 53 L Respiratory 22 16 Rate Blood Pressure Blood Pressure 163/85 [Left] O2 Sat by Pulse 100 Oximetry - Reevaluation(s) Reevaluation #1: 11/22/17 11:30 TO ER AGAIN TODAY W LOWER ABD PAIN AND BRIGHT RED BLOOD X 1 ON TOILET TISSUE. PT SEEN IN ER THE OTHER DAY AND SENT HOME W PREDNISONE AND ZOFRAN. SHE GOT NO BETTER AND DID NOT FOLLOW UP. LABS NOTED. WBC SLIGHT INC. CHILLS BUT NO FEVER. SLIGHT LLQ ABD TENDERNESS ON PALP NO STOOL IN VAULT H/H STABLE STILL HAS MENSES NO VAG COMPLAINTS- DC OR BLEEDING. NO N/V/D CT ORDERED. MEDICATED FOR PAIN. Reevaluation #2: 11/22/17 11:33 H/H STABLE FROM LAST VISIT WBC SAME FROM LAST VISIT CT NOTED FLAGYL AND CIPRO TAKING PO AMBULATING. DISCUSSED W PT HER HR SHE HAS NOT HAD THIS IN PAST. I TOLD HER SHE WILL NEED TO SEE CARDIOLOGY SHE IS ON NO RATE LOWERING MEDS TSH IS PENDING AND WE SHOULD CALL HER IF COMES BACK ABN SHE HAS PROVIDER CONTRACTING CONSULTANT PALPITATIONS, DIZZINESS OR THE LIKE. DISCUSSED DIET AT HOME DISCUSSED WITH HER AND FAMILY THE IMPORT OF FOLLOW UP [facility], MED REFERRAL AND GOOD RX CARD PROVIDED DC HOME IN STABLE CONDITION. ED Medical Decision Making - Lab Data Result diagrams: 11/22/17 07:46 - EKG Data -: EKG Interpreted by Me EKG shows normal: sinus rhythm Rate: bradycardia - EKG Data When compared to previous EKG there are: no significant change - Radiology Data Radiology results: report reviewed, image reviewed - Medical Decision Making ro divertic. dz with wbc and chills revisit to er pt was scanned diverticulosis noted will tx with cipro and flagyl - Differential Diagnosis ro diverticu dz; ro choley Critical care attestation.: If time is entered above; I have spent that time in minutes in the direct care of this critically ill patient, excluding procedure time. ED Disposition Clinical Impression: Diverticulosis, Bradycardia Disposition: DC-01 TO HOME OR SELFCARE Is pt being admited?: No Does the pt Need Aspirin: No Condition: Stable Instructions: Diverticulitis (ED), Diverticulosis (ED), Diverticulitis Diet (ED ), Diverticulosis Diet (ED) Additional Instructions: YOU NEED TO FOLLOW UP WITH A PCP WHO CAN THEN REFER YOU TO 1. GI 2. CARDIOLOGY BLAND DIET MEDS ORDERED TODAY HYDRATE WELL WITH WATER NO ALCOHOL OR CIG. Prescriptions: Ciprofloxacin HCl [Cipro] 500 mg PO BID #20 tablet Dicyclomine [Bentyl] 10 mg PO QID PRN #10 capsule PRN Reason: Pain , Severe (7-10) metroNIDAZOLE [Flagyl] 500 mg PO Q12HR #14 tab Ondansetron [Zofran TAB] 4 mg PO Q8HR PRN #10 tablet PRN Reason: Vomiting Referrals: PRIMARY CARE, [Primary Care Provider] - 3-5 Days STACEY HONEYCUTT MD [Staff Physician] - 3-5 Days Time of Disposition: 11:16
--- NOTE | 2017-11-22 10:51 | Cat Scan Report ---
FINAL REPORT EXAM: CT ABDOMEN PELVIS W CON HISTORY: abd pain TECHNIQUE: CT of the abdomen and pelvis with IV contrast. Coronal and sagittal reconstructed imaging provided. PRIORS: None currently available. FINDINGS: ABDOMEN: Ground-glass and soft tissue patchy infiltrates in both lower lobes. More notable in the left lower lobe. Images of the heart are unremarkable. Contracted gallbladder. Hyperemia of the wall. Pericholecystic fluid suspected. A distinct stone is not evident. Common bile duct does not appear to be prominent. Liver, stomach, spleen, pancreas, and adrenals are unremarkable. Kidneys: Symmetrical cortical enhancement. No hydronephrosis. There is no abdominal aortic aneurysm. No dissection. IVC is unremarkable. There is no periaortic or retroperitoneal adenopathy or mass. [id number] stool. Sigmoid diverticulosis. No wall thickening or inflammatory changes. Terminal ileum is unremarkable. Appendix is normal. Small bowel loops are unremarkable. No obstructive pattern. No free air. No free fluid. Mesentery is unremarkable. Fat-containing umbilical hernia without strangulation. PELVIS: Limited CT images of the uterus are unremarkable. Bladder is unremarkable. There is no pelvic mass or adenopathy. Inguinal regions are unremarkable. Bones: No suspicious osseous lesions on this limited examination of the skeleton. Metastatic disease better evaluated with bone scan. IMPRESSION: Suspect scatter pneumonia in both lower lobes. Differential diagnosis includes aspiration and acute pneumonitis. Indeterminate gallbladder findings. Correlation with gallbladder ultrasound for cholecystitis may be helpful clinically indicated.
[2017-11-22] MEDS ORDERED: ULTRAM PO ONE (11:01)
[2017-11-22] MEDS ORDERED: FLAGYL PO ONE (11:02)
[2017-11-22] MEDS ORDERED: LEVAQUIN PO ONE (11:03)
[2017-11-22 11:41] VITALS: BP 161/89
== END 2017-11-22 11:41 | disposition home or self-care (01) ==
LOC: ED 20:32
DX: K57.90 Diverticulosis of intestine, part unspecified, without perforation or abscess without bleeding (principal); R00.1 Bradycardia, unspecified; J45.909 Unspecified asthma, uncomplicated; F17.200 Nicotine dependence, unspecified, uncomplicated
CPT/HCPCS: 36415; 74177; 81001; 83690; 84443; 84702; 85007; 85025; 85027; 86850; 86900; 86901; 93005; 93010; 99284; Q9967

== ENCOUNTER 2018-08-23 23:08 | Emergency (ER) | payer OTHER ==
[2018-08-23] MEDS ORDERED: TYLENOL PO ONE (23:18)
[2018-08-23] MEDS ORDERED: TYLENOL ONE (23:21)
[2018-08-24 02:09] VITALS: BP 112/73
[2018-08-24] MEDS ORDERED: XYLOCAINE 1% 20 mL INFILTRATI ONE (05:36)
[2018-08-24] MEDS ORDERED: XYLOCAINE 1% 20 mL ONE (05:37)
--- NOTE | 2018-08-24 06:46 | Emergency Department Report ---
Abscess Boil HPI - HPI Chief Complaint: Skin/Abscess/Foreign Body Stated Complaint: ABSCESS ON BUTTOCK W/DIZZINESS Time Seen by Provider: 08/24/18 05:06 Duration: 3 Days Location: Sacral/Pilonidal (left gluteal region) Severity: Moderate History: Yes Pain, Yes Numbness, Yes Previous History, No Fever, No Foreign Body, No Insect Bite Home Medications: Previous Rx's Medication Instructions Recorded Last Taken Type Albuterol Sulfate [Ventolin HFA] 2 puff IH Q4H PRN #1 hfa.aer.ad 11/16/17 Unknown Rx Ondansetron [Zofran Odt] 4 mg PO Q8HR PRN #20 tab.rapdis 11/16/17 Unknown Rx Ciprofloxacin HCl [Cipro] 500 mg PO BID #20 tablet 11/22/17 Unknown Rx Dicyclomine [Bentyl] 10 mg PO QID PRN #10 capsule 11/22/17 Unknown Rx Ondansetron [Zofran TAB] 4 mg PO Q8HR PRN #10 tablet 11/22/17 Unknown Rx metroNIDAZOLE [Flagyl] 500 mg PO Q12HR #14 tab 11/22/17 Unknown Rx Chlorhexidine Gluconate [Hibiclens] 10 ml TP BID #240 liquid 08/24/18 Unknown Rx Ketorolac [Toradol] 10 mg PO Q6H PRN #15 tablet 08/24/18 Unknown Rx Sulfamethoxazole/Trimethoprim 1 each PO BID #20 tablet 08/24/18 Unknown Rx [Bactrim DS TAB] cephALEXin [Keflex] 500 mg PO Q6HR #40 capsule 08/24/18 Unknown Rx Allergies/Adverse Reactions: Allergies Allergy/AdvReac Type Severity Reaction Status Date / Time No Known Allergies Allergy Verified 04/08/16 19:47 ED Review of Systems ROS: Stated complaint: ABSCESS ON BUTTOCK W/DIZZINESS Other details as noted in HPI Comment: All other systems reviewed and negative ED Past Medical Hx - Past Medical History Previous Medical History?: Yes Hx Asthma: Yes - Surgical History Past Surgical History?: No - Social History Smoking Status: Current Every Day Smoker Substance Use Type: None - Medications Home Medications: Home Medications Medication Instructions Recorded Confirmed Last Taken Type Albuterol Sulfate [Ventolin HFA] 2 puff IH Q4H PRN #1 hfa.aer.ad 09/17/18 Unknown Rx Ondansetron [Zofran Odt] 4 mg PO Q8HR PRN #20 tab.rapdis 11/16/17 Unknown Rx Ciprofloxacin HCl [Cipro] 500 mg PO BID #20 tablet 11/22/17 Unknown Rx Dicyclomine [Bentyl] 10 mg PO QID PRN #10 capsule 11/22/17 Unknown Rx Ondansetron [Zofran TAB] 4 mg PO Q8HR PRN #10 tablet 11/22/17 Unknown Rx metroNIDAZOLE [Flagyl] 500 mg PO Q12HR #14 tab 11/22/17 Unknown Rx Chlorhexidine Gluconate [Hibiclens] 10 ml TP BID #240 liquid 08/24/18 Unknown Rx Ketorolac [Toradol] 10 mg PO Q6H PRN #15 tablet 08/24/18 Unknown Rx Sulfamethoxazole/Trimethoprim 1 each PO BID #20 tablet 08/24/18 Unknown Rx [Bactrim DS TAB] cephALEXin [Keflex] 500 mg PO Q6HR #40 capsule 08/24/18 Unknown Rx ED Abscess Boil Physical Exam - Exam General: Vital signs noted. No distress. Alert and acting appropriately. Front/Back of Body, Lg (Color): 1 - Indurated cellulitis Size: >5 cm (cellulitis, 14 cm x 8 cm) Exam: Yes Tenderness, Yes Surrounding Cellulites/Erythema (erythema and tenderness of the left ureter region with indurated area 4 cm), Yes Normal Neurologic Exam, Yes Normal Circulation, No Fluctuance, No Lymphangitis, No Crepitation, No Heart Murmur I & D Note - I & D Note I & D Note: There was prepped and draped draped in aseptic fashion. #11 blade was used to make a T incision to the wound and moderate pus was this was evacuated. Was expressed and irrigated loculated and propofol. ED Course Vital Signs 08/23/18 08/23/18 08/24/18 23:11 23:15 00:25 Temperature 100.0 F H 100.0 F H Pulse Rate 112 H 119 H Respiratory 18 18 18 Rate Blood Pressure 118/81 118/81 O2 Sat by Pulse 96 96 Oximetry 08/24/18 02:07 Temperature 99.1 F Pulse Rate 91 H Respiratory 18 Rate Blood Pressure 112/73 O2 Sat by Pulse 98 Oximetry Critical care attestation.: If time is entered above; I have spent that time in minutes in the direct care of this critically ill patient, excluding procedure time. ED Disposition Clinical Impression: Cellulitis and abscess of buttock Disposition: DC- TO HOME OR SELFCARE Is pt being admited?: No Does the pt Need Aspirin: No Condition: Stable Instructions: Abscess Incision and Drainage (ED), Abscess (ED) Additional Instructions: Please have wound reevaluated in 24-48 hours Referrals: PRIMARY CARE, [Primary Care Provider] - 3-5 Days
== END 2018-08-24 07:10 | disposition home or self-care (01) ==
LOC: ED 23:08
DX: L03.317 Cellulitis of buttock (principal); L02.31 Cutaneous abscess of buttock; J45.909 Unspecified asthma, uncomplicated; F17.200 Nicotine dependence, unspecified, uncomplicated; Z79.899 Other long term (current) drug therapy
CPT/HCPCS: 99282

== ENCOUNTER 2020-02-21 00:03 | Emergency (ER) | payer SELFPAY | END 2020-02-21 02:08 | disposition left against medical advice (07) | LOC: ED 00:03 | DX: R07.89 Other chest pain (principal); Z53.21 Procedure and treatment not carried out due to patient leaving prior to being seen by health care provider ==

== ENCOUNTER 2020-04-13 15:32 | Emergency (ER) | payer SELFPAY ==
[2020-04-13 15:46] VITALS: BP 125/62
[2020-04-13 16:55] LABS: Bilirubin,Urine NEG (Negative); Blood,Urine SM (Negative); Color,Urine Yellow (Yellow); Mucus,Urine FEW /HPF; Protein,Urine <15 mg/dL mg/dL (Negative); Urobilinogen,Urine < 2.0 mg/dL (<2.0)
--- NOTE | 2020-04-13 16:59 | Emergency Department Report ---
ED Abdominal Pain HPI - General Chief Complaint: Back Pain/Injury Stated Complaint: HANDS/FEET NUMB/ NO TASTE PUI?: No Time Seen by Provider: 04/13/20 16:20 Source: patient Mode of arrival: Ambulatory Limitations: No Limitations - History of Present Illness Initial Comments: This is a 24-year-old female with history of kidney stones who presents to ED complaining of lower back pain and pain with urination x2 days. Patient states she feels like discomfort urinating feels fine stone. Patient admits mild nausea and one episode of vomiting yesterday. Patient states he has taken no medications since symptoms started 2 days ago. Patient denies any fever, chills, abdominal pain, chest pain, shortness of breath or any other symptoms. - Related Data Previous Rx's Medication Instructions Recorded Last Taken Type Albuterol Sulfate [Ventolin HFA] 2 puff IH Q4H PRN #1 hfa.aer.ad 11/16/17 Unknown Rx Ciprofloxacin HCl [Cipro] 500 mg PO BID #20 tablet 11/22/17 Unknown Rx Dicyclomine [Bentyl] 10 mg PO QID PRN #10 capsule 11/22/17 Unknown Rx Ondansetron [Zofran TAB] 4 mg PO Q8HR PRN #10 tablet 11/22/17 Unknown Rx metroNIDAZOLE [Flagyl] 500 mg PO Q12HR #14 tab 11/22/17 Unknown Rx Chlorhexidine Gluconate [Hibiclens] 10 ml TP BID #240 liquid 08/24/18 Unknown Rx Sulfamethoxazole/Trimethoprim 1 each PO BID #20 tablet 08/24/18 Unknown Rx [Bactrim DS TAB] cephALEXin [Keflex] 500 mg PO Q6HR #40 capsule 08/24/18 Unknown Rx Clindamycin [Clindamycin CAP] 450 mg PO TID 7 Days #63 capsule 08/05/19 Unknown Rx Ibuprofen [Motrin 600 MG tab] 600 mg PO Q8H PRN #20 tablet 08/05/19 Unknown Rx Ketorolac [Toradol] 10 mg PO Q6H PRN #15 tablet 04/13/20 Unknown Rx Ondansetron [Zofran ODT TAB] 4 mg PO Q8HR PRN #20 tab.rapdis 04/13/20 Unknown Rx Tamsulosin [Flomax] 0.4 mg PO QDAY #5 cap 04/13/20 Unknown Rx Allergies Allergy/AdvReac Type Severity Reaction Status Date / Time No Known Allergies Allergy Verified 04/13/20 15:42 ED Review of Systems ROS: Stated complaint: HANDS/FEET NUMB/ NO TASTE Other details as noted in HPI ED Past Medical Hx - Past Medical History Hx Asthma: Yes - Social History Smoking Status: Current Every Day Smoker Substance Use Type: None - Medications Home Medications: Home Medications Medication Instructions Recorded Confirmed Last Taken Type Albuterol Sulfate [Ventolin HFA] 2 puff IH Q4H PRN #1 hfa.aer.ad 11/16/17 Unknown Rx Ciprofloxacin HCl [Cipro] 500 mg PO BID #20 tablet 11/22/17 Unknown Rx Dicyclomine [Bentyl] 10 mg PO QID PRN #10 capsule 11/22/17 Unknown Rx Ondansetron [Zofran TAB] 4 mg PO Q8HR PRN #10 tablet 11/22/17 Unknown Rx metroNIDAZOLE [Flagyl] 500 mg PO Q12HR #14 tab 11/22/17 Unknown Rx Chlorhexidine Gluconate [Hibiclens] 10 ml TP BID #240 liquid 08/24/18 Unknown Rx Sulfamethoxazole/Trimethoprim 1 each PO BID #20 tablet 08/24/18 Unknown Rx [Bactrim DS TAB] cephALEXin [Keflex] 500 mg PO Q6HR #40 capsule 08/24/18 Unknown Rx Clindamycin [Clindamycin CAP] 450 mg PO TID 7 Days #63 capsule 08/05/19 Unknown Rx Ibuprofen [Motrin 600 MG tab] 600 mg PO Q8H PRN #20 tablet 08/05/19 Unknown Rx Ketorolac [Toradol] 10 mg PO Q6H PRN #15 tablet 04/13/20 Unknown Rx Ondansetron [Zofran ODT TAB] 4 mg PO Q8HR PRN #20 tab.rapdis 04/13/20 Unknown Rx Tamsulosin [Flomax] 0.4 mg PO QDAY #5 cap 04/13/20 Unknown Rx ED Physical Exam - General Limitations: No Limitations General appearance: alert, in no apparent distress - Head Head exam: Present: atraumatic, normocephalic - Eye Eye exam: Present: normal appearance - ENT ENT exam: Present: mucous membranes moist - Neck Neck exam: Present: normal inspection, full ROM - Respiratory Respiratory exam: Present: normal lung sounds bilaterally. Absent: respiratory distress - Cardiovascular Cardiovascular Exam: Present: regular rate, normal rhythm. Absent: systolic murmur, diastolic murmur, rubs, gallop - GI/Abdominal GI/Abdominal exam: Present: soft, normal bowel sounds - Extremities Exam Extremities exam: Present: normal inspection - Back Exam Back exam: Present: normal inspection, full ROM. Absent: tenderness, CVA tenderness (R), CVA tenderness (L) - Neurological Exam Neurological exam: Present: alert, oriented X3, CN II-XII intact, normal gait - Psychiatric Psychiatric exam: Present: normal affect, normal mood - Skin Skin exam: Present: warm, dry, intact, normal color. Absent: rash ED Course Vital Signs 04/13/20 15:44 Temperature 98.2 F Pulse Rate 81 Respiratory 19 Rate Blood Pressure 125/62 O2 Sat by Pulse 100 Oximetry ED Medical Decision Making - Lab Data Result diagrams: 04/13/20 16:54 04/13/20 16:54 Laboratory Last Values WBC 12.8 K/mm3 (4.5-11.0) H 04/13/20 16:54 RBC 4.09 M/mm3 (3.65-5.03) 04/13/20 16:54 Hgb 13.1 gm/dl (10.1-14.3) 04/13/20 16:54 Hct 38.5 % (30.3-42.9) 04/13/20 16:54 MCV 94 fl (79-97) 04/13/20 16:54 MCH 32 pg (28-32) 04/13/20 16:54 MCHC 34 % (30-34) 04/13/20 16:54 RDW 13.9 % (13.2-15.2) 04/13/20 16:54 Plt Count 271 K/mm3 (140-440) 04/13/20 16:54 Seg Neutrophils % Ophthalmic Technician 04/13/20 16:54 Sodium 137 mmol/L (137-145) 04/13/20 16:54 Potassium 3.8 mmol/L (3.6-5.0) 04/13/20 16:54 Chloride 102.4 mmol/L (98-107) 04/13/20 16:54 Carbon Dioxide 27 mmol/L (22-30) 04/13/20 16:54 Anion Gap 11 mmol/L 04/13/20 16:54 BUN 13 mg/dL (7-17) 04/13/20 16:54 Creatinine 0.7 mg/dL (0.6-1.2) 04/13/20 16:54 Estimated GFR > 60 ml/min 04/13/20 16:54 BUN/Creatinine Ratio 19 % 04/13/20 16:54 Glucose 108 mg/dL (65-100) H 04/13/20 16:54 Calcium 8.7 mg/dL (8.4-10.2) 04/13/20 16:54 Total Bilirubin 0.50 mg/dL (0.1-1.2) 04/13/20 16:54 AST 16 units/L (5-40) 04/13/20 16:54 ALT 12 units/L (7-56) 04/13/20 16:54 Alkaline Phosphatase 55 units/L (35-129) 04/13/20 16:54 Total Protein 7.2 g/dL (6.3-8.2) 04/13/20 16:54 Albumin 4.6 g/dL (3.9-5) 04/13/20 16:54 Albumin/Globulin Ratio 1.8 % 04/13/20 16:54 Urine Color Yellow (Yellow) 04/13/20 16:45 Urine Turbidity Clear (Clear) 04/13/20 16:45 Urine pH 5.0 (5.0-7.0) 04/13/20 16:45 Ur Specific Mclean 1.025 (1.003-1.030) 04/13/20 16:45 Urine Protein <15 mg/dl mg/dL (Negative) 04/13/20 16:45 Urine Glucose (UA) Neg mg/dL (Negative) 04/13/20 16:45 Urine Ketones Neg mg/dL (Negative) 04/13/20 16:45 Urine Blood Sm (Negative) 04/13/20 16:45 Urine Nitrite Neg (Negative) 04/13/20 16:45 Urine Bilirubin Neg (Negative) 04/13/20 16:45 Urine Urobilinogen < 2.0 mg/dL (<2.0) 04/13/20 16:45 Ur Leukocyte Esterase Neg (Negative) 04/13/20 16:45 Urine WBC (Auto) 2.0 /HPF (0.0-6.0) 04/13/20 16:45 Urine RBC (Auto) 1.0 /HPF (0.0-6.0) 04/13/20 16:45 U Epithel Cells (Auto) 1.0 /HPF (0-13.0) 04/13/20 16:45 Urine Mucus Few /HPF 04/13/20 16:45 - Radiology Data Radiology results: report reviewed, image reviewed Fluoro Time In Minutes: XR abdomen 1V ap INDICATION: flank pain. COMPARISON: CT on 11/22/2018. FINDINGS: Bowel gas pattern appears normal. There are no appreciable urinary stones. Visualized osseous structures appear unremarkable. Signer Name: Rolando Gutiérrez MD Signed: 04/13/2020 5:22 PM Workstation Name: [id number] Transcribed By: BEE Dictated By: Rolando Gutiérrez MD Electronically Authenticated By: Rolando Gutiérrez MD Signed Date/Time: 04/13/20 1722 - Medical Decision Making 44-year-old female presents with low back pain strain dysuria. All labs mild leukocytosis, urinalysis negative KUB x-ray negative see report above I discussed all findings with the patient. Discussed with to apply to the lower back. Patient did request for COVID-19 testing. I referred patient to testing sites referrals given. Vital signs are normal patient received pain medication in the ED. She was in no acute Distress throughout ED stay. Patient 11-year-old so during the ED. She understands instructions and will follow up. Critical care attestation.: If time is entered above; I have spent that time in minutes in the direct care of this critically ill patient, excluding procedure time. ED Disposition Clinical Impression: Flank pain, Hx of renal calculi Disposition: DC-01 TO HOME OR SELFCARE Is pt being admited?: No Does the pt Need Aspirin: No Condition: Stable Instructions: Kidney Stones, [id number], Flank Pain, Adult Additional Instructions: Make sure to follow up with the primary care physician as discussed. Take all your medications as you've been prescribed. If you have any worsening symptoms or develop new symptoms please return to ED immediately. Prescriptions: Tamsulosin [Flomax] 0.4 mg PO QDAY #5 cap Ketorolac [Toradol] 10 mg PO Q6H PRN #15 tablet PRN Reason: Pain Ondansetron [Zofran ODT TAB] 4 mg PO Q8HR PRN #20 tab.rapdis PRN Reason: Nausea And Vomiting Referrals: PRIMARY CARE,MD [Primary Care Provider] - 3-5 Days [facility] [Outside] - 3-5 Days [facility] [Outside] - 3-5 Days Forms: Work/School Release Form(ED) Time of Disposition: 18:47
--- NOTE | 2020-04-13 17:27 | XRay Report ---
XR abdomen 1V ap INDICATION: flank pain. COMPARISON: CT on 11/22/2018. FINDINGS: Bowel gas pattern appears normal. There are no appreciable urinary stones. Visualized osseous structu res appear unremarkable. Signer Name: Rolando Gutiérrez MD Signed: 04/13/2020 5:22 PM Workstation Name: [id number]
[2020-04-13 17:34] LABS: Hematocrit 38.5 % (30.3-42.9); Hemoglobin 13.1 gm/dl (10.1-14.3); Mean Corpuscular HGB Conc 34 % (30-34); Mean Corpuscular Volume 94 fl (79-97); Platelet Count 271 K/mm3 (140-440); Red Blood Count 4.09 M/mm3 (3.65-5.03); Red Cell Distribution Width 13.9 % (13.2-15.2)
[2020-04-13] MEDS ORDERED: ACETAMINOPHEN W/CODEINE 300-30 MG TAB PO ONE (17:49)
[2020-04-13 18:06] LABS: Alanine Aminotransferase 12 units/L (7-56); Albumin 4.6 g/dL (3.9-5); Blood Urea Nitrogen 13 mg/dL (7-17); Calcium 8.7 mg/dL (8.4-10.2); Hemolysis Index 3
[2020-04-13 18:12] LABS: BUN/Creatinine Ratio 19
[2020-04-13 18:49] LABS: RBC Morphology Normal; Total Cells Counted 100
== END 2020-04-13 19:18 | disposition home or self-care (01) ==
LOC: ED 15:32
DX: N20.0 Calculus of kidney (principal); J45.909 Unspecified asthma, uncomplicated; F17.200 Nicotine dependence, unspecified, uncomplicated; Z79.899 Other long term (current) drug therapy
CPT/HCPCS: 36415; 74018; 80053; 81001; 85007; 85025

== ENCOUNTER 2020-05-31 10:02 | Emergency (ER) | payer SELFPAY ==
[2020-05-31 10:12] VITALS: BP 136/58
--- NOTE | 2020-05-31 10:35 | XRay Report ---
Left hand 3 views INDICATION: Injury FINDINGS: There is a fracture through the distal tuft of the fifth phalanx with surrounding soft tiss ue swelling. MCP joints and IP joints appear normal. IMPRESSION: Fascia to the distal tuft of the fifth phalanx. No significant displacement is seen. Diffuse soft tis henry swelling. Signer Name: Satinder Wolfe MD Signed: 05/31/2020 10:31 AM Workstation Name: [id number]
--- NOTE | 2020-05-31 10:47 | Emergency Department Report ---
ED Upper Extremity Inj HPI - General Chief Complaint: Extremity Injury, Upper Stated Complaint: LEFT HAND PINKY FINGER INJURY Time Seen by Provider: 05/31/20 10:24 Source: patient Mode of arrival: Ambulatory Limitations: No Limitations - History of Present Illness Initial Comments: 44 YO COMES TO ER P SLAMMING L 5TH FINGER IN CAR DOOR. NO OPEN SKIN OR BLEEDING CO PAIN AT TIP OF FINGER NO SUBUNGAL NEUROVASC INTACT MD Complaint: Injury to:: left -: Sudden Other Extremity Injury: Fingers: Left Other Injuries: none Handedness: right Place: home Improves With: cold therapy Worsens With: movement of extremity Context: direct blow Associated Symptoms: denies other symptoms - Related Data Previous Rx's Medication Instructions Recorded Last Taken Type Albuterol Sulfate [Ventolin HFA] 2 puff IH Q4H PRN #1 hfa.aer.ad 11/16/17 Unknown Rx Ciprofloxacin HCl [Cipro] 500 mg PO BID #20 tablet 11/22/17 Unknown Rx Dicyclomine [Bentyl] 10 mg PO QID PRN #10 capsule 11/22/17 Unknown Rx Ondansetron [Zofran TAB] 4 mg PO Q8HR PRN #10 tablet 11/22/17 Unknown Rx metroNIDAZOLE [Flagyl] 500 mg PO Q12HR #14 tab 11/22/17 Unknown Rx Chlorhexidine Gluconate [Hibiclens] 10 ml TP BID #240 liquid 08/24/18 Unknown Rx Sulfamethoxazole/Trimethoprim 1 each PO BID #20 tablet 08/24/18 Unknown Rx [Bactrim DS TAB] cephALEXin [Keflex] 500 mg PO Q6HR #40 capsule 08/24/18 Unknown Rx Clindamycin [Clindamycin CAP] 450 mg PO TID 7 Days #63 capsule 08/05/19 Unknown Rx Ibuprofen [Motrin 600 MG tab] 600 mg PO Q8H PRN #20 tablet 08/05/19 Unknown Rx Ketorolac [Toradol] 10 mg PO Q6H PRN #15 tablet 04/13/20 Unknown Rx Ondansetron [Zofran ODT TAB] 4 mg PO Q8HR PRN #20 tab.rapdis 04/13/20 Unknown Rx Tamsulosin [Flomax] 0.4 mg PO QDAY #5 cap 04/13/20 Unknown Rx Ibuprofen [Motrin] 800 mg PO Q8HR PRN #30 tablet 05/31/20 Unknown Rx Allergies Allergy/AdvReac Type Severity Reaction Status Date / Time No Known Allergies Allergy Verified 04/13/20 15:42 ED Review of Systems ROS: Stated complaint: LEFT HAND PINKY FINGER INJURY Other details as noted in HPI Comment: All other systems reviewed and negative ED Past Medical Hx - Past Medical History Previous Medical History?: Yes Hx Asthma: Yes - Surgical History Past Surgical History?: No - Family History Family history: no significant - Social History Smoking Status: Current Some Day Smoker Substance Use Type: Marijuana - Medications Home Medications: Home Medications Medication Instructions Recorded Confirmed Last Taken Type Albuterol Sulfate [Ventolin HFA] 2 puff IH Q4H PRN #1 hfa.aer.ad 11/16/17 Unknown Rx Ciprofloxacin HCl [Cipro] 500 mg PO BID #20 tablet 11/22/17 Unknown Rx Dicyclomine [Bentyl] 10 mg PO QID PRN #10 capsule 11/22/17 Unknown Rx Ondansetron [Zofran TAB] 4 mg PO Q8HR PRN #10 tablet 11/22/17 Unknown Rx metroNIDAZOLE [Flagyl] 500 mg PO Q12HR #14 tab 11/22/17 Unknown Rx Chlorhexidine Gluconate [Hibiclens] 10 ml TP BID #240 liquid 08/24/18 Unknown Rx Sulfamethoxazole/Trimethoprim 1 each PO BID #20 tablet 08/24/18 Unknown Rx [Bactrim DS TAB] cephALEXin [Keflex] 500 mg PO Q6HR #40 capsule 08/24/18 Unknown Rx Clindamycin [Clindamycin CAP] 450 mg PO TID 7 Days #63 capsule 08/05/19 Unknown Rx Ibuprofen [Motrin 600 MG tab] 600 mg PO Q8H PRN #20 tablet 08/05/19 Unknown Rx Ketorolac [Toradol] 10 mg PO Q6H PRN #15 tablet 04/13/20 Unknown Rx Ondansetron [Zofran ODT TAB] 4 mg PO Q8HR PRN #20 tab.rapdis 04/13/20 Unknown Rx Tamsulosin [Flomax] 0.4 mg PO QDAY #5 cap 04/13/20 Unknown Rx Ibuprofen [Motrin] 800 mg PO Q8HR PRN #30 tablet 05/31/20 Unknown Rx ED Physical Exam - General Limitations: No Limitations General appearance: alert, in no apparent distress - Head Head exam: Present: atraumatic, normocephalic - Eye Eye exam: Present: normal appearance - ENT ENT exam: Present: mucous membranes moist - Neck Neck exam: Present: normal inspection - Respiratory Respiratory exam: Present: normal lung sounds bilaterally. Absent: respiratory distress - Cardiovascular Cardiovascular Exam: Present: regular rate, normal rhythm. Absent: systolic murmur, diastolic murmur, rubs, gallop - GI/Abdominal GI/Abdominal exam: Present: soft, normal bowel sounds - Extremities Exam Extremities exam: Present: normal inspection - Expanded Upper Extremity Exam Left Shoulder Exam: Present: normal inspection Upper Arm exam: Present: normal inspection Elbow exam: Present: normal inspection Hand Wrist exam: Present: tenderness, swelling, other (BOTH OF LITTLE FINGER LEFT HAND). Absent: nail avulsion (NO OPEN SKIN ), subungual hematoma Vascular: Present: normal capillary refill - Back Exam Back exam: Present: normal inspection - Neurological Exam Neurological exam: Present: alert, oriented X3 - Psychiatric Psychiatric exam: Present: normal affect, normal mood - Skin Skin exam: Present: warm, dry, intact, normal color. Absent: rash ED Course Vital Signs 05/31/20 10:10 Temperature 97.9 F Pulse Rate 89 Respiratory 18 Rate Blood Pressure 136/58 [Right] O2 Sat by Pulse 100 Oximetry ED Medical Decision Making - Radiology Data Radiology results: report reviewed, image reviewed FX - Medical Decision Making FINGER SPLINT MOTRIN FOR PAIN DC HOME WITH DC PLAN OF CARE INCLUDING ORTHO FOLLOW UP PT VERBALIZES UNDERSTANDING OF PLAN OF CARE Vital Signs 05/31/20 10:10 Temperature 97.9 F Pulse Rate 89 Respiratory 18 Rate Blood Pressure 136/58 [Right] O2 Sat by Pulse 100 Oximetry - Differential Diagnosis FX Critical care attestation.: If time is entered above; I have spent that time in minutes in the direct care of this critically ill patient, excluding procedure time. ED Disposition Clinical Impression: Closed fracture of tuft of distal phalanx of finger Disposition: DC-01 TO HOME OR SELFCARE Is pt being admited?: No Does the pt Need Aspirin: No Condition: Stable Instructions: Finger Fracture, Adult, [id number] Additional Instructions: FINGER SPLINT ICE REST ELEVATE FOLLOW UP WITH ORTHO IN 1 WEEK REFERRAL BELOW MED GIVEN TODAY - FOR PAIN TAKE WITH FOOD Prescriptions: Ibuprofen [Motrin] 800 mg PO Q8HR PRN #30 tablet PRN Reason: Pain, Moderate (4-6) Referrals: MARITA MCMAHAN MD [Staff Physician] - 3-5 Days MONA CERRATO MD [Staff Physician] - 3-5 Days Time of Disposition: 10:55
[2020-05-31] MEDS ORDERED: IBUPROFEN 800 MG TAB PO ONE (10:53)
== END 2020-05-31 11:25 | disposition home or self-care (01) ==
LOC: ED 10:02
DX: S62.637A Displaced fracture of distal phalanx of left little finger, initial encounter for closed fracture (principal); J45.909 Unspecified asthma, uncomplicated; F17.200 Nicotine dependence, unspecified, uncomplicated; F12.10 Cannabis abuse, uncomplicated; Z79.899 Other long term (current) drug therapy; W31.89XA Contact with other specified machinery, initial encounter; Y93.89 Activity, other specified; Y92.89 Other specified places as the place of occurrence of the external cause; Y99.8 Other external cause status
CPT/HCPCS: 99283

== ENCOUNTER 2020-06-23 23:22 | Observation (INO) | payer SELFPAY ==
--- NOTE | 2020-06-24 00:40 | XRay Report ---
CHEST 2 VIEWS INDICATION / CLINICAL INFORMATION: Shortness of breath and possible COVID 19 exposure. COMPARISON: 11/15/17. FINDINGS: SUPPORT DEVICES: None. HEART / MEDIASTINUM: The heart size and pulmonary vasculature are normal. LUNGS / PLEURA: No significant pulmonary or pleural abnormality. No pneumothorax. ADDITIONAL FINDINGS: No significant additional findings. IMPRESSION: No acute abnormality or significant change. Signer Name: Keon Downing MD Signed: 06/24/2020 12:35 AM Workstation Name: [email or web address]
[2020-06-24] MEDS ORDERED: ASPIRIN 325 MG TAB PO ONE (02:26)
--- NOTE | 2020-06-24 02:29 | Event Note ---
ED Screening Note Date of service: 06/24/20 Time: : ED Screening Note: Patient is a 44-year-old female with a history of asthma, kidney stones and chronic tobacco abuse who presents to the ED with complaint of acute onset persistent left-sided chest pain that is constant but waxes and wanes and which radiates to the left arm with numbness and tingling sensation on the left arm for the last 18 hours. Patient states that the chest pain is pressure-like tightness as if someone is sitting on her chest wall. Patient denies dizziness, syncope, shortness of breath, diaphoresis, nausea and vomiting, abdominal pain, back pain, neck pain, headache, change in vision or palpitations, fever and chills or cough. This initial assessment/diagnostic orders/clinical plan/treatment(s) is/are subject to change based on patients health status, clinical progression and re- assessment by fellow clinical providers in the ED. Further treatment and workup at subsequent clinical providers discretion. Patient/guardian urged not to elope from the ED as their condition may be serious if not clinically assessed and managed. Initial orders include: CBC, CMP, EKG, CXR, aspirin, troponin x2
[2020-06-24 03:16] LABS: Hematocrit 38.6 % (30.3-42.9); Hemoglobin 13.1 gm/dl (10.1-14.3); Mean Corpuscular HGB Conc 34 % (30-34); Mean Corpuscular Volume 93 fl (79-97); Red Blood Count 4.14 M/mm3 (3.65-5.03)
[2020-06-24 03:17] LABS: Basophils # (Auto) 0.1 K/mm3 (0.0-0.1); Basophils % (Auto) 0.6 % (0.0-1.8); Eosinophils # (Auto) 0.2 K/mm3 (0.0-0.4); Lymphocytes # (Auto) 2.4 K/mm3 (1.2-5.4); Lymphocytes % (Auto) 27.3 % (13.4-35.0); Monocytes # (Auto) 0.6 K/mm3 (0.0-0.8); Monocytes % (Auto) 6.5 % (0.0-7.3); Platelet Count 268 K/mm3 (140-440)
[2020-06-24 03:24] LABS: Alanine Aminotransferase 12 units/L (7-56); Albumin 4.3 g/dL (3.9-5); BUN/Creatinine Ratio 25; Blood Urea Nitrogen 15 mg/dL (7-17); Calcium 9.2 mg/dL (8.4-10.2); Hemolysis Index 11
[2020-06-24] MEDS ORDERED: fentaNYL 100 MCG/2 ML INJ IV ONE (03:29)
[2020-06-24] MEDS ORDERED: NITROGLYCERIN 2% OINT 1 GM TP ONE (03:29)
[2020-06-24] MEDS ORDERED: ONDANSETRON 4 MG/2 ML INJ IV ONE (03:29)
--- NOTE | 2020-06-24 03:34 | Emergency Department Report ---
HPI - General Chief Complaint: Chest Pain Time Seen by Provider: 06/24/20 03:20 - HPI HPI: Room 23 The patient is a 44-year-old female present with a chief complaint of chest pain. Patient states for the past 6 hours she has had a constant sharp pain s ubsternally and in the left chest associated with numbness of the left upper extremity. Patient states she is also had nausea/vomiting, diaphoresis and some shortness of breath with this chest pain. Patient currently gives her chest pain score of 9/10. Patient also states she has had a cough for 1 day that has been nonproductive. Patient denies history of fever. Patient states there were coworkers that have been exposed to Covid. The patient states today she lost her sense of taste. Patient states the last stress test she had was over 5 years ago and she has never had a cardiac catheterization ED Past Medical Hx - Past Medical History Previous Medical History?: Yes Hx Asthma: Yes - Surgical History Past Surgical History?: No - Family History Family history: no significant - Social History Smoking Status: Current Every Day Smoker (1/2 pack/day) Substance Use Type: None (Denies illicit drug use) - Medications Home Medications: Home Medications Medication Instructions Recorded Confirmed Last Taken Type Albuterol Sulfate [Ventolin HFA] 2 puff IH Q4H PRN #1 hfa.aer.ad 11/16/17 Unknown Rx Ciprofloxacin HCl [Cipro] 500 mg PO BID #20 tablet 11/22/17 Unknown Rx Dicyclomine [Bentyl] 10 mg PO QID PRN #10 capsule 11/22/17 Unknown Rx Ondansetron [Zofran TAB] 4 mg PO Q8HR PRN #10 tablet 11/22/17 Unknown Rx metroNIDAZOLE [Flagyl] 500 mg PO Q12HR #14 tab 11/22/17 Unknown Rx Chlorhexidine Gluconate [Hibiclens] 10 ml TP BID #240 liquid 08/24/18 Unknown Rx Sulfamethoxazole/Trimethoprim 1 each PO BID #20 tablet 08/24/18 Unknown Rx [Bactrim DS TAB] cephALEXin [Keflex] 500 mg PO Q6HR #40 capsule 08/24/18 Unknown Rx Clindamycin [Clindamycin CAP] 450 mg PO TID 7 Days #63 capsule 08/05/19 Unknown Rx Ibuprofen [Motrin 600 MG tab] 600 mg PO Q8H PRN #20 tablet 08/05/19 Unknown Rx Ketorolac [Toradol] 10 mg PO Q6H PRN #15 tablet 04/13/20 Unknown Rx Ondansetron [Zofran ODT TAB] 4 mg PO Q8HR PRN #20 tab.rapdis 04/13/20 Unknown Rx Tamsulosin [Flomax] 0.4 mg PO QDAY #5 cap 04/13/20 Unknown Rx Ibuprofen [Motrin] 800 mg PO Q8HR PRN #30 tablet 05/31/20 Unknown Rx ED Review of Systems ROS: Stated complaint: CHEST PRESSURE/PAIN; RT ARM PAIN Other details as noted in HPI Constitutional: diaphoresis. denies: fever Eyes: denies: eye pain ENT: denies: throat pain Respiratory: cough, shortness of breath Cardiovascular: chest pain Endocrine: no symptoms reported Gastrointestinal: denies: abdominal pain Genitourinary: denies: dysuria Neurological: denies: headache Physical Exam - Physical Exam Physical Exam: GENERAL: The patient is well-developed well-nourished female lying on stretcher not appearing to be in acute distress. [] HEENT: Normocephalic. Atraumatic. Extraocular motions are intact. Patient has moist mucous membranes. NECK: Supple. Trachea midline CHEST/LUNGS: Clear to auscultation. There is no respiratory distress noted. HEART/CARDIOVASCULAR: Regular. There is no tachycardia. There is no gallop rub or murmur. ABDOMEN: Abdomen is soft, nontender. Patient has normal bowel sounds. There is no abdominal distention. SKIN: There is no rash. There is no edema. There is no diaphoresis. NEURO: The patient is awake, alert, and oriented. The patient is cooperative. The patient has no focal neurologic deficits. The patient has normal speech MUSCULOSKELETAL: There is no evidence of acute injury. ED Medical Decision Making - Lab Data Result diagrams: 06/24/20 02:31 06/24/20 02:31 Laboratory Tests 06/24/20 06/24/20 06/24/20 02:31 02:31 04:36 WBC 9.0 RBC 4.14 Hgb 13.1 Hct 38.6 MCV 93 MCH 32 MCHC 34 RDW 14.0 Plt Count 268 Lymph % (Auto) 27.3 [place] % (Auto) 6.5 Eos % (Auto) 2.0 Baso % (Auto) 0.6 Lymph # (Auto) 2.4 [place] # (Auto) 0.6 Eos # (Auto) 0.2 Baso # (Auto) 0.1 Seg Neutrophils % 63.6 Seg Neutrophils # 5.7 D-Dimer Sodium 138 Potassium 4.2 Chloride 101.6 Carbon Dioxide 27 Anion Gap 14 BUN 15 Creatinine 0.6 Estimated GFR > 60 BUN/Creatinine Ratio 25 Glucose 81 Calcium 9.2 Total Bilirubin < 0.20 AST 13 ALT 12 Alkaline Phosphatase 57 Troponin T < 0.010 < 0.010 NT-Pro-B Natriuret Pep 75.15 Total Protein 7.0 Albumin 4.3 Albumin/Globulin Ratio 1.6 06/24/20 04:36 WBC RBC Hgb Hct MCV MCH MCHC RDW Plt Count Lymph % (Auto) [place] % (Auto) Eos % (Auto) Baso % (Auto) Lymph # (Auto) [place] # (Auto) Eos # (Auto) Baso # (Auto) Seg Neutrophils % Seg Neutrophils # D-Dimer 175.50 Sodium Potassium Chloride Carbon Dioxide Anion Gap BUN Creatinine Estimated GFR BUN/Creatinine Ratio Glucose Calcium Total Bilirubin AST ALT Alkaline Phosphatase Troponin T NT-Pro-B Natriuret Pep Total Protein Albumin Albumin/Globulin Ratio - EKG Data -: EKG Interpreted by Me EKG shows normal: sinus rhythm Rate: normal - EKG Data When compared to previous EKG there are: previous EKG unavailable Interpretation: other (No ischemic changes seen) - Radiology Data Radiology results: report reviewed (Chest x-ray), image reviewed (Chest x-ray) interpreted by me: Chest x-ray-no focal infiltrates, no pneumothorax. No foreign body seen [facility] [address] [place] [address] XRay Report Signed Patient: RICHARD HERRERA MR#: [id number] : 1975 Acct:[id number] Age/Sex: 44 / F ADM Date: 06/23/20 Loc: ED Attending Dr: Ordering Physician: ED MD ZEHRA Date of Service: 06/23/20 Procedure(s): XR chest routine 2V Accession Number(s): [id number] cc: ED MD ZEHRA Fluoro Time In Minutes: CHEST 2 VIEWS INDICATION / CLINICAL INFORMATION: Shortness of breath and possible COVID 19 exposure. COMPARISON: 11/15/17. FINDINGS: SUPPORT DEVICES: None. HEART / MEDIASTINUM: The heart size and pulmonary vasculature are normal. LUNGS / PLEURA: No significant pulmonary or pleural abnormality. No pneumothorax. ADDITIONAL FINDINGS: No significant additional findings. IMPRESSION: No acute abnormality or significant change. Signer Name: Keon Downing MD Signed: 06/24/2020 12:35 AM Workstation Name: [id number] Transcribed By: RT Dictated By: Keon Downing MD Electronically Authenticated By: Keon Downing MD Signed Date/Time: 06/24/2034 DD/ TD/TT: - Medical Decision Making Patient desatted to 88-91% on room air with ambulation x2 minutes. Will admit patient to the hospital - Differential Diagnosis ACS, pericarditis, GERD, COVID-19 Critical care attestation.: If time is entered above; I have spent that time in minutes in the direct care of this critically ill patient, excluding procedure time. ED Disposition Clinical Impression: Suspected COVID-19 virus infection, Chest pain Disposition: OP ADMIT IP TO THIS HOSP Is pt being admited?: Yes Does the pt Need Aspirin: Yes Condition: Fair Instructions: Nonspecific Chest Pain, Adult Referrals: PRIMARY CARE, [Primary Care Provider] - 3-5 Days Time of Disposition: 05:23 (Hospitalist paged (Dr Arteaga)) Heart Score - HEART Score History: Moderately suspicious EKG: Normal Age: < 45 Risk factors: 1-2 risk factors Troponin: < normal limit HEART Score: 2 - EKG Read Time Time EKG Completed: 23:37 EKG Read Time: 23:40
[2020-06-24] MEDS ORDERED: cefTRIAXone/NS 1 GM/50 ML 1 GM/50 ML BAG IV ONE (05:22)
[2020-06-24] MEDS ORDERED: DICYCLOMINE 10 MG CAP PO PRN (05:54)
[2020-06-24] MEDS ORDERED: KETOROLAC 10 MG TAB PO PRN (05:54)
[2020-06-24] MEDS ORDERED: IBUPROFEN 600 MG TAB PO PRN (05:54)
[2020-06-24] MEDS ORDERED: ALBUTEROL 8.5 GM MDI INHALATION IH PRN (05:54)
[2020-06-24] MEDS ORDERED: hydrALAZINE 20 MG/1 ML INJ IV PRN (05:56)
--- NOTE | 2020-06-24 06:02 | History and Physical Report ---
History of Present Illness Date of examination: 06/24/20 Date of admission: 06/24/20 05:25 Chief complaint: Chest pain shortness of breath History of present illness: 44-year-old female with past medical history of asthma was brought to the emergency room because of chest pain for the past 6 hours she has had a constant sharp pain substernally and in the left chest associated with numbness of the left upper extremity. Patient states she is also had nausea/vomiting, diaphoresis and some shortness of breath with this chest pain. Patient currently gives her chest pain score of 9/10. Patient also states she has had a cough for 1 day that has been nonproductive. Patient denies history of fever. Patient states there were coworkers that have been exposed to Covid. The patient states today she lost her sense of taste. Patient states the last stress test she had was over 5 years ago and she has never had a cardiac catheterization In the emergency room initial cardiac enzyme is negative troponin is 0.01 but we're going to admit the patient for suspected Covid, patient O2 sat dropped to 88% on walking Past History Past Medical History: other (Asthma) Medications and Allergies Allergies Allergy/AdvReac Type Severity Reaction Status Date / Time No Known Allergies Allergy Verified 04/13/20 15:42 Home Medications Medication Instructions Recorded Confirmed Last Taken Type Albuterol Sulfate [Ventolin HFA] 2 puff IH Q4H PRN #1 hfa.aer.ad 11/16/17 Unknown Rx Ciprofloxacin HCl [Cipro] 500 mg PO BID #20 tablet 11/22/17 Unknown Rx Dicyclomine [Bentyl] 10 mg PO QID PRN #10 capsule 11/22/17 Unknown Rx Ondansetron [Zofran TAB] 4 mg PO Q8HR PRN #10 tablet 11/22/17 Unknown Rx metroNIDAZOLE [Flagyl] 500 mg PO Q12HR #14 tab 11/22/17 Unknown Rx Chlorhexidine Gluconate [Hibiclens] 10 ml TP BID #240 liquid 08/24/18 Unknown Rx Sulfamethoxazole/Trimethoprim 1 each PO BID #20 tablet 08/24/18 Unknown Rx [Bactrim DS TAB] cephALEXin [Keflex] 500 mg PO Q6HR #40 capsule 08/24/18 Unknown Rx Clindamycin [Clindamycin CAP] 450 mg PO TID 7 Days #63 capsule 08/05/19 Unknown Rx Ibuprofen [Motrin 600 MG tab] 600 mg PO Q8H PRN #20 tablet 08/05/19 Unknown Rx Ketorolac [Toradol] 10 mg PO Q6H PRN #15 tablet 04/13/20 Unknown Rx Ondansetron [Zofran ODT TAB] 4 mg PO Q8HR PRN #20 tab.rapdis 04/13/20 Unknown Rx Tamsulosin [Flomax] 0.4 mg PO QDAY #5 cap 04/13/20 Unknown Rx Ibuprofen [Motrin] 800 mg PO Q8HR PRN #30 tablet 05/31/20 Unknown Rx Active Meds: Active Medications Albuterol (Albuterol 8.5 Gm Mdi Inhalation) 2 puff IH Q4H PRN PRN Reason: Shortness Of Breath Dexamethasone (Dexamethasone 4 Mg/Ml Vial) 6 mg IV Q24H DILAN Dicyclomine HCl (Dicyclomine 10 Mg Cap) 10 mg PO QID PRN PRN Reason: Pain , Severe (7-10) Famotidine (Famotidine 20 Mg Tab) 20 mg PO BID DILAN Heparin Sodium (Porcine) (Heparin 5,000 Unit/1 Ml Vial) 5,000 unit SUB-Q Q8HR DILAN Hydralazine HCl (Hydralazine 20 Mg/1 Ml Inj) 10 mg IV Q6H PRN PRN Reason: htn Ceftriaxone Sodium (Rocephin/Ns 2 Gm/100 Ml) 2 gm in 100 mls @ 200 mls/hr IV Q24H DILAN; Protocol Azithromycin (Zithromax/Ns) 500 mg in 250 mls @ 250 mls/hr IV Q24H DILAN; Protocol Ibuprofen (Ibuprofen 600 Mg Tab) 600 mg PO Q8H PRN PRN Reason: PAIN Ketorolac Tromethamine (Ketorolac 10 Mg Tab) 10 mg PO Q6H PRN PRN Reason: PAIN Stop: 06/29/20 05:53 Metronidazole (Metronidazole 500 Mg Tab) 500 mg PO Q12HR DILAN; Protocol Tamsulosin HCl (Tamsulosin 0.4 Mg Cap) 0.4 mg PO QDAY DILAN Review of Systems Cardiovascular: chest pain, shortness of breath, dyspnea on exertion Respiratory: cough, shortness of breath, dyspnea on exertion Exam - Constitutional Vitals: Temp Pulse Resp BP Pulse Ox 76 17 106/58 96 06/24/20 05:21 06/24/20 05:21 06/24/20 05:21 06/24/20 05:21 General appearance: Present: no acute distress, well-nourished - EENT Eyes: Present: PERRL ENT: hearing intact, clear oral mucosa - Neck Neck: Present: supple, normal ROM - Respiratory Respiratory effort: normal Respiratory: bilateral: diminished - Cardiovascular Heart Sounds: Present: S1 & S2. Absent: rub, click - Extremities Extremities: pulses symmetrical, No edema Peripheral Pulses: within normal limits - Abdominal General gastrointestinal: Present: soft, non-tender, non-distended, normal bowel sounds Female genitourinary: Present: normal - Integumentary Integumentary: Present: clear, warm, dry - Musculoskeletal Musculoskeletal: gait normal, strength equal bilaterally - Psychiatric Psychiatric: appropriate mood/affect, intact judgment & insight - Neurologic Neurologic: CNII-XII intact, moves all extremities HEART Score - HEART Score EKG: Normal Age: < 45 Risk factors: 1-2 risk factors Troponin: Troponin T < 0.010 ng/mL (0.00-0.029) 06/24/20 04:36 Troponin: < normal limit Results - Labs CBC & Chem 7: 06/24/20 02:31 06/24/20 02:31 Labs: Laboratory Last Values WBC 9.0 K/mm3 (4.5-11.0) 06/24/20 02:31 RBC 4.14 M/mm3 (3.65-5.03) 06/24/20 02:31 Hgb 13.1 gm/dl (10.1-14.3) 06/24/20 02:31 Hct 38.6 % (30.3-42.9) 06/24/20 02:31 MCV 93 fl (79-97) 06/24/20 02:31 MCH 32 pg (28-32) 06/24/20 02:31 MCHC 34 % (30-34) 06/24/20 02:31 RDW 14.0 % (13.2-15.2) 06/24/20 02:31 Plt Count 268 K/mm3 (140-440) 06/24/20 02:31 Lymph % (Auto) 27.3 % (13.4-35.0) 06/24/20 02:31 [place] % (Auto) 6.5 % (0.0-7.3) 06/24/20 02:31 Eos % (Auto) 2.0 % (0.0-4.3) 06/24/20 02:31 Baso % (Auto) 0.6 % (0.0-1.8) 06/24/20 02:31 Lymph # (Auto) 2.4 K/mm3 (1.2-5.4) 06/24/20 02:31 [place] # (Auto) 0.6 K/mm3 (0.0-0.8) 06/24/20 02:31 Eos # (Auto) 0.2 K/mm3 (0.0-0.4) 06/24/20 02:31 Baso # (Auto) 0.1 K/mm3 (0.0-0.1) 06/24/20 02:31 Seg Neutrophils % 63.6 % (40.0-70.0) 06/24/20 02:31 Seg Neutrophils # 5.7 K/mm3 (1.8-7.7) 06/24/20 02:31 D-Dimer 175.50 ng/mlDDU (0-234) 06/24/20 04:36 Sodium 138 mmol/L (137-145) 06/24/20 02:31 Potassium 4.2 mmol/L (3.6-5.0) 06/24/20 02:31 Chloride 101.6 mmol/L (98-107) 06/24/20 02:31 Carbon Dioxide 27 mmol/L (22-30) 06/24/20 02:31 Anion Gap 14 mmol/L 06/24/20 02:31 BUN 15 mg/dL (7-17) 06/24/20 02:31 Creatinine 0.6 mg/dL (0.6-1.2) 06/24/20 02:31 Estimated GFR > 60 ml/min 06/24/20 02:31 BUN/Creatinine Ratio 25 % 06/24/20 02:31 Glucose 81 mg/dL (65-100) 06/24/20 02:31 Calcium 9.2 mg/dL (8.4-10.2) 06/24/20 02:31 Total Bilirubin < 0.20 mg/dL (0.1-1.2) 06/24/20 02:31 AST 13 units/L (5-40) 06/24/20 02:31 ALT 12 units/L (7-56) 06/24/20 02:31 Alkaline Phosphatase 57 units/L (35-129) 06/24/20 02:31 Troponin T < 0.010 ng/mL (0.00-0.029) 06/24/20 04:36 NT-Pro-B Natriuret Pep 75.15 pg/mL (0-450) 06/24/20 02:31 Total Protein 7.0 g/dL (6.3-8.2) 06/24/20 02:31 Albumin 4.3 g/dL (3.9-5) 06/24/20 02:31 Albumin/Globulin Ratio 1.6 % 06/24/20 02:31 - Imaging and Cardiology Chest x-ray: image reviewed Assessment and Plan VTE prophylaxis?: Chemical Plan of care discussed with patient/family: Yes - Patient Problems (1) Suspected COVID-19 virus infection Current Visit: Yes Status: Acute Plan to address problem: Admit the patient to the medical telemetry. Oxygen via nasal cannula 3 L/min. DuoNeb by nebulizer every 4 hours as needed. Rocephin 2 g IV daily and Zithromax 500 mg IV daily. Decadron 6 mg IV daily. Follow the markers of Covid. We'll send the Covid PCR. If needed consult ID (2) Chest pain Current Visit: Yes Status: Acute Plan to address problem: Aspirin 325 mg p.o. daily. Lipitor 40 mg p.o. daily. We'll do the serial cardiac enzyme. We also do echocardiogram. Heparin 5000 units subcu every 8 hours (3) Asthma Current Visit: Yes Status: Acute Plan to address problem: Oxygen per nasal cannula 3 L/min. DuoNeb by nebulizer every 4 hours as needed. Decadron 6 mg IV daily. We'll continue the home medication (4) DVT prophylaxis Current Visit: Yes Status: Acute Plan to address problem: Heparin 5000 units subcu every 8 hours for DVT prophylaxis Pepcid 20 mg p.o. twice daily for GI prophylaxis. Patient is a full code
[2020-06-24] MEDS ORDERED: NITROGLYCERIN 0.4 MG TAB SUBL SL PRN (06:04)
[2020-06-24] MEDS ORDERED: ACETAMINOPHEN 325 MG TAB PO PRN (06:04)
[2020-06-24] MEDS ORDERED: ALBUTEROL 2.5 MG/3 ML NEBU IH PRN (06:07)
[2020-06-24] MEDS: cefTRIAXone/NS 2 GM/100 ML 2 GM/100 ML BAG IV SCH (06:27)
[2020-06-24] MEDS: HEPARIN 5,000 UNIT/1 ML VIAL SUB-Q SCH ×3 (06:27→21:37)
[2020-06-24] MEDS: dexAMETHasone 4 MG/ML VIAL IV SCH (06:27)
[2020-06-24 06:42] LABS: C-Reactive Protein 0.3 mg/dL (0.00-1.30)
[2020-06-24] MEDS: AZITHROMYCIN/NS 500 MG/250 ML 500 MG/250 ML BAG IV SCH (07:42)
[2020-06-24] MEDS ORDERED: metroNIDAZOLE 500 MG TAB PO SCH (10:00)
--- NOTE | 2020-06-24 10:56 | Event Note ---
Date: 06/24/20 Patient was seen and evaluated this morning, patient's chest pain is getting better. Patient is complaining shortness of breath on ambulation. Echo was ordered and results pending. Patient had contact with Covid patients and Covid test was ordered and results pending. Continue management as outlined in the H&P. Vital signs are noted. Labs and imaging were noted.
[2020-06-24] MEDS: NICOTINE 14 MG/24 HR PATCH TD SCH (12:13)
[2020-06-24] MEDS: FAMOTIDINE 20 MG TAB PO SCH ×2 (12:13→21:36)
[2020-06-24] MEDS: TAMSULOSIN 0.4 MG CAP PO SCH (12:14)
[2020-06-24] MEDS: traMADol 50 MG TAB PO PRN (12:14)
[2020-06-24 13:33] LABS: Blood Urea Nitrogen 12 mg/dL (7-17); Calcium 8.3 mg/dL (8.4-10.2); Hemolysis Index 12
[2020-06-24 13:34] LABS: BUN/Creatinine Ratio 17
[2020-06-24 13:37] LABS: Basophils % (Auto) 0.3 % (0.0-1.8); Eosinophils % (Auto) 0.1 % (0.0-4.3); Hematocrit 36.9 % (30.3-42.9); Hemoglobin 12.3 gm/dl (10.1-14.3); Lymphocytes # (Auto) 0.9 K/mm3 (1.2-5.4); Lymphocytes % (Auto) 9.4 % (13.4-35.0); Mean Corpuscular HGB Conc 33 % (30-34); Mean Corpuscular Volume 94 fl (79-97); Monocytes # (Auto) 0.1 K/mm3 (0.0-0.8); Monocytes % (Auto) 1.1 % (0.0-7.3); Platelet Count 272 K/mm3 (140-440); Red Blood Count 3.94 M/mm3 (3.65-5.03)
[2020-06-25] MEDS: traMADol 50 MG TAB PO PRN ×2 (00:28→12:05)
[2020-06-25] MEDS: dexAMETHasone 4 MG/ML VIAL IV SCH (05:10)
[2020-06-25] MEDS: cefTRIAXone/NS 2 GM/100 ML 2 GM/100 ML BAG IV SCH (05:10)
[2020-06-25] MEDS: AZITHROMYCIN/NS 500 MG/250 ML 500 MG/250 ML BAG IV SCH (05:11)
[2020-06-25] MEDS: HEPARIN 5,000 UNIT/1 ML VIAL SUB-Q SCH (05:11)
[2020-06-25 05:25] VITALS: BP 117/70
[2020-06-25 06:25] LABS: Basophils # (Auto) 0.1 K/mm3 (0.0-0.1); Basophils % (Auto) 0.5 % (0.0-1.8); Eosinophils % (Auto) 0.1 % (0.0-4.3); Hematocrit 38.6 % (30.3-42.9); Hemoglobin 13.2 gm/dl (10.1-14.3); Lymphocytes # (Auto) 1.7 K/mm3 (1.2-5.4); Mean Corpuscular HGB Conc 34 % (30-34); Mean Corpuscular Volume 93 fl (79-97); Monocytes # (Auto) 0.4 K/mm3 (0.0-0.8); Monocytes % (Auto) 3.4 % (0.0-7.3); Platelet Count 271 K/mm3 (140-440); Red Blood Count 4.15 M/mm3 (3.65-5.03); Red Cell Distribution Width 13.9 % (13.2-15.2)
[2020-06-25 06:48] LABS: Blood Urea Nitrogen 14 mg/dL (7-17); Calcium 8.6 mg/dL (8.4-10.2); Hemolysis Index 17
[2020-06-25 06:55] LABS: BUN/Creatinine Ratio 23
[2020-06-25] MEDS ORDERED: ASPIRIN EC 325 MG TAB PO SCH (10:00)
--- NOTE | 2020-06-25 10:38 | Electrocardiograph Report ---
[facility] Test Date: 2020-06-23 Test Time: 23:37:12 Pat Name: RICHARD HERRERA Department: Room: A383 1 Gender: F Electronic Gluer: MIRIAM : 1975 Requested By: SANDHYA LANDAVERDE Order Number: [id number] Reading MD: Jamey Irizarry Measurements Intervals [place] Rate: 80 P: 83 DC: 136 QRS: 82 QRSD: 102 T: 64 QT: 370 QTc: 427 Interpretive Statements Sinus rhythm Right atrial enlargement No previous ECG available for comparison Electronically Signed On 06-25-2020 10:38:54 EDT by Jamey Irizarry
[2020-06-25] MEDS: NICOTINE 14 MG/24 HR PATCH TD SCH (11:55)
[2020-06-25] MEDS: TAMSULOSIN 0.4 MG CAP PO SCH (11:55)
[2020-06-25] MEDS: FAMOTIDINE 20 MG TAB PO SCH (11:55)
--- NOTE | 2020-06-25 13:12 | Discharge Summary ---
Providers - Providers Date of Admission: 06/24/20 21:49 Attending physician: YESSENIA MENDOAZ MD 06/24/20 Consult to Cardiac Rehabilitation [CONS] Routine Reason For Exam: Phase I Primary care physician: [facility] [employer] Hospitalization Reason for admission: Chest pain Condition: Fair Hospital course: 44-year-old female with past medical history of asthma was brought to the emergency room because of chest pain for the past 6 hours she has had a constant sharp pain substernally and in the left chest associated with numbness of the left upper extremity. Patient states she is also had nausea/vomiting, diaphoresis and some shortness of breath with this chest pain. Patient currently gives her chest pain score of 9/10. Patient also states she has had a cough for 1 day that has been nonproductive. Patient denies history of fever. Patient states there were coworkers that have been exposed to Covid. The patient states today she lost her sense of taste. Patient states the last stress test she had was over 5 years ago and she has never had a cardiac catheterization In the emergency room initial cardiac enzyme is negative troponin is 0.01 but we're going to admit the patient for suspected Covid, patient O2 sat dropped to 88% on walking Since admission chest pain has resolved comes intermittent I did have extensive discussion trying to tease out the origin of the chest pain she was a bit evasive. Although she says she has had the same pain over and over in the past few months. On examination the pain was reproducible. Submammary on the left side and also substernal. It does not radiate. She unfortunately continues to smoke despite multiple warnings have extended that conversation and counseling for 15 minutes she verbalized understanding and will quit. She did have a mild leukocytosis which has resolved echocardiogram was unremarkable chest x-ray was unremarkable her Covid testing was negative Is agreeable to following up with cardiology outpatient. Atypical chest pain likely costochondritis Acute hypoxic respiratory failure now resolved Tobacco use disorder Disposition: TO HOME OR SELFCARE Final Discharge Diagnosis (Prints w/discharge instructions): Atypical chest pain secondary to costochondritis Time spent for discharge: 35-minute Core Measure Documentation - Palliative Care Palliative Care/ Comfort Measures: Not Applicable - Core Measures Any of the following diagnoses?: none Exam - Physical Exam Narrative exam: VITAL SIGNS: Reviewed. GENERAL: The patient appears normally developed, Vital signs as documented. HEAD: No signs of head trauma. EYES: Pupils are equal. Extraocular motions intact. EARS: Hearing grossly intact. MOUTH: Oropharynx is normal. Poor dentition NECK: No adenopathy, no JVD. CHEST: Chest with clear breath sounds bilaterally. No wheezes, rales, or rhonchi. CARDIAC: Regular rate and rhythm. S1 and S2, without murmurs, gallops, or rubs. VASCULAR: No Edema. Peripheral pulses normal and equal in all extremities. ABDOMEN: Soft, non tender and non distended. No rebound or guarding, and no masses palpated. Bowel Sounds normal. MUSCULOSKELETAL: Good range of motion of all major joints. Extremities without clubbing, cyanosis or edema. NEUROLOGIC EXAM: Alert and oriented x 3 No focal sensory or strength deficits. Speech normal. Follows commands. PSYCHIATRIC: Mood normal. SKIN: detail exam as documented in skin assessment - Constitutional Vitals: Temp Pulse Resp BP Pulse Ox 98.2 F 68 18 117/70 99 06/25/20 05:24 06/25/20 05:24 06/25/20 05:24 06/25/20 05:24 06/25/20 05:24 Plan Activity: fall precautions, other (No exertional activity until evaluated by cardiology) Diet: low fat Special Instructions: record daily weights, record daily BP diary, smoking cessation Plan of Treatment: Quit tobacco use Follow with director child abuse therapy for stress test outpatient. No exertional activity until seen by director child abuse therapy Follow up with: PRIMARY CAREMD [Primary Care Provider] - 3-5 Days LEANNA MANZO MD [Staff Physician] - 7 Days Prescriptions: Nicotine [Habitrol] 14 mg TD QDAY #14 patch Ketorolac [Toradol] 10 mg PO Q6H PRN #10 tablet PRN Reason: Pain
[2020-06-26] MEDS ORDERED: PNEUMOCOCCAL 23 Valent 0.5 ML VIAL IM ONE (12:00)
== END 2020-06-25 16:12 | disposition home or self-care (01) ==
LOC: ED 23:22 → 3A 06-24 05:25 → UNDOADMOB 06-24 05:25 → 3A 06-24 21:49
PROVIDERS: ADMIT Hospitalist; ATTEND Internal Medicine
DX: J96.01 Acute respiratory failure with hypoxia (principal); Z20.822 Contact with and (suspected) exposure to COVID-19; R07.89 Other chest pain; J45.909 Unspecified asthma, uncomplicated; F17.210 Nicotine dependence, cigarettes, uncomplicated; Z79.899 Other long term (current) drug therapy
CPT/HCPCS: 36415; 71046; 80048; 80053; 82728; 82947; 83615; 83880; 84145; 84484; 85025; 85379; 86140; 87040; 93005; 93306; 96365; 96366; 96367; 96368; 96372; 96375; 96376; 99285; A9270; G0378; J0456; J0696; J1100; J1644; J2405; J3010; U0003

== ENCOUNTER 2020-06-29 22:26 | Emergency (ER) | payer SELFPAY ==
[2020-06-30] MEDS ORDERED: ASPIRIN 325 MG TAB PO ONE (01:18)
[2020-06-30 02:21] LABS: Alanine Aminotransferase 15 units/L (7-56); Albumin 4.1 g/dL (3.9-5); Blood Urea Nitrogen 17 mg/dL (7-17); Calcium 9.2 mg/dL (8.4-10.2); Hemolysis Index 2
--- NOTE | 2020-06-30 02:23 | XRay Report ---
CHEST 2 VIEWS INDICATION / CLINICAL INFORMATION: chestpain. COMPARISON: Chest radiograph 06/24/2020 FINDINGS: SUPPORT DEVICES: None. HEART / MEDIASTINUM: No significant abnormality. LUNGS / PLEURA: No significant pulmonary or pleural abnormality. No pneumothorax. ADDITIONAL FINDINGS: No significant additional findings. IMPRESSION: 1. No acute findings. Signer Name: Dasia Iqbal MD Signed: 06/30/2020 2:19 AM Workstation Name: [id number]
--- NOTE | 2020-06-30 02:27 | Emergency Department Report ---
ED Chest Pain HPI - General Chief Complaint: Chest Pain Stated Complaint: CHEST PAIN; EXPOSURE TO COVID PUI?: No Time Seen by Provider: 06/30/20 02:15 Source: patient Mode of arrival: Ambulatory Limitations: No Limitations - History of Present Illness Initial Comments: Patient is a 44-year-old female who presents emergency room with complaints of chest pain and shortness of breath and a possible Covid exposure. Patient states that her symptoms started yesterday at 3 PM. Patient states that the symptoms are worsening. Patient states that the chest pain is a pressure and is an 8 out of 10. Patient states is in her bilateral chest. Patient states that her chest pain is better with rest. Patient states her chest pain is worse with movement, palpation and deep breaths. Patient states she quit smoking 2 weeks ago. Patient states she has not had the Covid vaccine. Patient states that she has not been tested for Covid. Patient states that people in her household have Covid. Patient denies fever and chills. Patient denies nausea vomiting. Patient denies diarrhea. Patient complains of cough. Patient states her cough is dry. Patient denies recent travel. Patient denies recent international travel. Patient denies fever and chills. Patient denies diarrhea. MD Complaint: chest pain -: Sudden Pain Location: substernal, left chest, right chest Severity scale (0 -10): 8 Quality: sharp Consistency: constant Improves With: rest Worsens With: inspiration, palpation, movement re: dyspnea. denies: nausea, vomting, diaphoresis, sense of impending doom Other Symptoms: denies: cough, fever, syncope, rash, acid taste in mouth, leg swelling, palpitations, burping Treatments Prior to Arrival: none Aspirin use within the Past 7 Days: (0) No - Related Data On Oral Contraceptives: No Previous Rx's Medication Instructions Recorded Last Taken Type Albuterol Sulfate [Ventolin HFA] 2 puff IH Q4H PRN #1 hfa.aer.ad 11/16/17 Unknown Rx Dicyclomine [Bentyl] 10 mg PO QID PRN #10 capsule 11/22/17 Unknown Rx Chlorhexidine Gluconate [Hibiclens] 10 ml TP BID #240 liquid 08/24/18 Unknown Rx Ibuprofen [Motrin 600 MG tab] 600 mg PO Q8H PRN #20 tablet 08/05/19 Unknown Rx Ondansetron [Zofran ODT TAB] 4 mg PO Q8HR PRN #20 tab.rapdis 04/13/20 Unknown Rx Tamsulosin [Flomax] 0.4 mg PO QDAY #5 cap 04/13/20 Unknown Rx Ketorolac [Toradol] 10 mg PO Q6H PRN #10 tablet 06/25/20 Unknown Rx Nicotine [Habitrol] 14 mg TD QDAY #14 patch 06/25/20 Unknown Rx Acetaminophen/Codeine [Tylenol 1 tab PO Q6H PRN #12 tab 06/30/20 Unknown Rx /Codeine # 3 tab] Azithromycin [Zithromax TAB] 500 mg PO QDAY 5 Days #5 tablet 06/30/20 Unknown Rx methylPREDNISolone [Medrol 4MG 4 mg PO DAILY 6 Days #1 tab.ds.pk 06/30/20 Unknown Rx DOSEPAK (21 tabs)] Allergies Allergy/AdvReac Type Severity Reaction Status Date / Time No Known Allergies Allergy Verified 04/13/20 15:42 Heart Score - HEART Score History: Slightly suspicious EKG: Normal Age: < 45 Risk factors: No known risk factors Troponin: < normal limit HEART Score: 0 - EKG Read Time Time EKG Completed: 22:33 EKG Read Time: 22:37 ED Review of Systems ROS: Stated complaint: CHEST PAIN; EXPOSURE TO COVID Other details as noted in HPI Constitutional: denies: chills, fever Eyes: denies: eye pain, eye discharge, vision change ENT: denies: ear pain, throat pain Respiratory: see HPI, cough, shortness of breath. denies: wheezing Cardiovascular: as per HPI, chest pain. denies: palpitations Endocrine: no symptoms reported Gastrointestinal: denies: abdominal pain, nausea, diarrhea Genitourinary: denies: urgency, dysuria, discharge Musculoskeletal: denies: back pain, joint swelling, arthralgia Skin: denies: rash, lesions Neurological: denies: headache, weakness, paresthesias Psychiatric: denies: anxiety, depression Hematological/Lymphatic: denies: easy bleeding, easy bruising ED Past Medical Hx - Past Medical History Previous Medical History?: Yes Hx Congestive Heart Failure: No Hx Diabetes: No Hx Deep Vein Thrombosis: Yes Hx Pulmonary Embolism: No Hx Renal Disease: No Hx Kidney Stones: Yes Hx Asthma: Yes Hx COPD: No Hx Tuberculosis: No Hx HIV: No - Surgical History Past Surgical History?: No Hx Coronary Stent: No Hx Pacemaker: No Hx Internal Defibrillator: No - Family History Family history: no significant - Social History Smoking Status: Former Smoker Substance Use Type: None - Medications Home Medications: Home Medications Medication Instructions Recorded Confirmed Last Taken Type Albuterol Sulfate [Ventolin HFA] 2 puff IH Q4H PRN #1 hfa.aer.ad 11/16/17 Unknown Rx Dicyclomine [Bentyl] 10 mg PO QID PRN #10 capsule 11/22/17 Unknown Rx Chlorhexidine Gluconate [Hibiclens] 10 ml TP BID #240 liquid 08/24/18 Unknown Rx Ibuprofen [Motrin 600 MG tab] 600 mg PO Q8H PRN #20 tablet 08/05/19 Unknown Rx Ondansetron [Zofran ODT TAB] 4 mg PO Q8HR PRN #20 tab.rapdis 04/13/20 Unknown Rx Tamsulosin [Flomax] 0.4 mg PO QDAY #5 cap 04/13/20 Unknown Rx Ketorolac [Toradol] 10 mg PO Q6H PRN #10 tablet 06/25/20 Unknown Rx Nicotine [Habitrol] 14 mg TD QDAY #14 patch 06/25/20 Unknown Rx Acetaminophen/Codeine [Tylenol 1 tab PO Q6H PRN #12 tab 06/30/20 Unknown Rx /Codeine # 3 tab] Azithromycin [Zithromax TAB] 500 mg PO QDAY 5 Days #5 tablet 06/30/20 Unknown Rx methylPREDNISolone [Medrol 4MG 4 mg PO DAILY 6 Days #1 tab.ds.pk 06/30/20 Unknown Rx DOSEPAK (21 tabs)] ED Physical Exam - General Limitations: No Limitations General appearance: alert, in no apparent distress - Head Head exam: Present: atraumatic, normocephalic - Eye Eye exam: Present: normal appearance - ENT ENT exam: Present: mucous membranes moist - Neck Neck exam: Present: normal inspection - Respiratory Respiratory exam: Present: normal lung sounds bilaterally, chest wall tenderness. Absent: respiratory distress, wheezes - Cardiovascular Cardiovascular Exam: Present: regular rate, normal rhythm. Absent: systolic murmur, diastolic murmur, rubs, gallop - GI/Abdominal GI/Abdominal exam: Present: soft, normal bowel sounds - Extremities Exam Extremities exam: Present: normal inspection - Back Exam Back exam: Present: normal inspection - Neurological Exam Neurological exam: Present: alert, oriented X3 - Psychiatric Psychiatric exam: Present: normal affect, normal mood - Skin Skin exam: Present: warm, dry, intact, normal color. Absent: rash ED Course Vital Signs 06/30/20 06/30/20 06/30/20 01:24 03:00 03:05 Temperature 98 F Pulse Rate 78 69 82 Respiratory 18 19 18 Rate Blood Pressure 131/69 Blood Pressure 113/63 131/69 [Left] O2 Sat by Pulse 100 100 Oximetry 06/30/20 06/30/20 06/30/20 03:23 03:31 03:45 Temperature Pulse Rate 73 80 Respiratory 17 18 Rate Blood Pressure 131/69 121/57 113/72 Blood Pressure [Left] O2 Sat by Pulse 100 100 99 Oximetry 06/30/20 06/30/20 06/30/20 04:00 04:15 04:30 Temperature Pulse Rate 71 73 68 Respiratory 20 18 16 Rate Blood Pressure 112/69 116/68 117/69 Blood Pressure [Left] O2 Sat by Pulse 99 100 99 Oximetry - Reevaluation(s) Reevaluation #1: Patient states her pain improved with the steroids. Patient states she is feeling better. I discussed all results and clinical findings with patient. I discussed plan of care with patient. Patient agrees with plan of care. Patient is stable for discharge. Patient will be discharged home. Patient given discharge instructions. Patient voiced understanding of discharge instructions. Patient information was faxed over to her local cardiology group for further evaluation and treatment and risk ratification of the chest pain since the patient presents emergency room with complaints of chest pain. 06/30/20 04:28 KIKE score - Kike Score Age > 65: (0) No Aspirin use within the Past 7 Days: (0) No 3 or more CAD Risk Factors: (0) No 2 or more Angina events in past 24 hrs: (1) Yes Known CAD with more than 50% Stenosis: (0) No Elevated Cardiac Markers: (0) No ST Deviation Greater than 0.5mm: (0) No KIKE Score: 1 ED Medical Decision Making - Lab Data Result diagrams: 06/30/20 01:19 06/30/20 01:19 - EKG Data -: EKG Interpreted by Me EKG shows normal: sinus rhythm, axis, intervals, QRS complexes, ST-T waves Rate: normal - Radiology Data Radiology results: report reviewed, image reviewed interpreted by me: Chest x-ray: No pneumonia, no pneumothorax, no foreign body, no osseous fi ndings, no acute findings CHEST 2 VIEWS INDICATION / CLINICAL INFORMATION: chestpain. COMPARISON: Chest radiograph 06/24/2020 FINDINGS: SUPPORT DEVICES: None. HEART / MEDIASTINUM: No significant abnormality. LUNGS / PLEURA: No significant pulmonary or pleural abnormality. No pneumothorax. ADDITIONAL FINDINGS: No significant additional findings. IMPRESSION: 1. No acute findings. - Medical Decision Making Patient is a 44-year-old female that presents emergency room with complaints of chest pain and shortness of breath. Patient's chest pain is bilaterally. Patient's chest pain is reproducible with chest wall palpation. Patient has al so had exposure to Covid. Patient had a chest x-ray which was negative for acute findings. I personally reviewed the chest x-ray. Patient had an EKG which was negative for acute findings showed a sinus rhythm. I personally reviewed the EKG. Patient had labs done which were essentially unremarkable. Patient was given steroids for the chest pain and her chest pain and shortness of breath improved. They states she felt better. Patient recently quit smoking. Patient clinical findings consistent with possible Covid and bronchitis. Patient be treated with Zithromax and steroids. Patient also given Tylenol 3 for chest wall pain. Patient is stable for discharge. Patient discharged home. Patient given Coban and PUI discharge. Patient encouraged to follow-up with outpatient testing sites. Patient also to quarantine for 14 days. - Differential Diagnosis Chest pain, shortness of breath, PUI, Covid, pneumonia, chest wall pain Critical care attestation.: If time is entered above; I have spent that time in minutes in the direct care of this critically ill patient, excluding procedure time. ED Disposition Clinical Impression: Suspected COVID-19 virus infection, SOB (shortness of breath), Chest wall pain, Person under investigation for COVID-19, Bronchitis Chest pain Qualifiers: Chest pain type: unspecified Qualified Code(s): R07.9 - Chest pain, unspecified Disposition: TO HOME OR SELFCARE Is pt being admited?: No Does the pt Need Aspirin: No Condition: Stable Instructions: COVID-19 Frequently Asked Questions, Chest Wall Pain, [id number], Nonspecific Chest Pain, Adult, COVID-19: How to Protect Yourself and Others - CDC, Cough, Adult, COVID-19, Prevent the Spread of COVID-19 if You Are Sick - CDC, Chronic Bronchitis (ED) Additional Instructions: Patient to follow-up with primary care in 2 to 3 days. 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 Patient to rest. Patient to increase water. Patient to self quarantine for 14 days. Patient to follow CDC guidelines for COVID-19. Patient to continue wearing a mask. Patient to take Tylenol or ibuprofen as needed for pain. Patient to take meds as directed. Patient to return to the ER if condition worsens, changes or new symptoms arise. Prescriptions: methylPREDNISolone [Medrol 4MG DOSEPAK (21 tabs)] 4 mg PO DAILY 6 Days #1 tab.ds.pk Acetaminophen/Codeine [Tylenol /Codeine # 3 tab] 1 tab PO Q6H PRN #12 tab PRN Reason: pain Azithromycin [Zithromax TAB] 500 mg PO QDAY 5 Days #5 tablet Referrals: MIAN MADDEN MD [Staff Physician] - 2-3 Days PRIMARY CAREMD [Primary Care Provider] - 2-3 Days LEANNA MANZO MD [Staff Physician] - 2-3 Days Time of Disposition: 04:35
[2020-06-30 02:31] LABS: Basophils % (Auto) 0.4 % (0.0-1.8); Eosinophils # (Auto) 0.2 K/mm3 (0.0-0.4); Eosinophils % (Auto) 1.9 % (0.0-4.3); Hematocrit 37.2 % (30.3-42.9); Hemoglobin 12.5 gm/dl (10.1-14.3); Lymphocytes # (Auto) 2.8 K/mm3 (1.2-5.4); Lymphocytes % (Auto) 25.6 % (13.4-35.0); Mean Corpuscular HGB Conc 34 % (30-34); Mean Corpuscular Volume 93 fl (79-97); Monocytes # (Auto) 0.6 K/mm3 (0.0-0.8); Monocytes % (Auto) 5.6 % (0.0-7.3); Platelet Count 267 K/mm3 (140-440); Red Blood Count 3.99 M/mm3 (3.65-5.03)
[2020-06-30 02:40] LABS: BUN/Creatinine Ratio 28
[2020-06-30] MEDS ORDERED: methylPREDNISolone Sod Succinate 125 MG/2 ML INJ IV ONE (02:52)
[2020-06-30 05:29] VITALS: BP 126/72
== END 2020-06-30 05:29 | disposition home or self-care (01) ==
LOC: ED 22:26
DX: J40 Bronchitis, not specified as acute or chronic (principal); R06.02 Shortness of breath; R07.89 Other chest pain; Z79.899 Other long term (current) drug therapy; Z86.69 Personal history of other diseases of the nervous system and sense organs; Z87.891 Personal history of nicotine dependence; Z20.822 Contact with and (suspected) exposure to COVID-19
CPT/HCPCS: 36415; 71046; 80053; 84484; 85025; 96374; 99284; J2930; 93005

== ENCOUNTER 2020-07-08 05:53 | Observation (INO) | payer SELFPAY ==
[2020-07-08 08:00] LABS: Basophils % (Auto) 0.3 % (0.0-1.8); Eosinophils # (Auto) 0.1 K/mm3 (0.0-0.4); Eosinophils % (Auto) 1.1 % (0.0-4.3); Hematocrit 41.4 % (30.3-42.9); Hemoglobin 13.9 gm/dl (10.1-14.3); Lymphocytes # (Auto) 2.7 K/mm3 (1.2-5.4); Lymphocytes % (Auto) 20.4 % (13.4-35.0); Mean Corpuscular HGB Conc 34 % (30-34); Mean Corpuscular Volume 94 fl (79-97); Monocytes # (Auto) 0.7 K/mm3 (0.0-0.8); Monocytes % (Auto) 5.1 % (0.0-7.3); Platelet Count 288 K/mm3 (140-440); Red Blood Count 4.41 M/mm3 (3.65-5.03); Red Cell Distribution Width 14.4 % (13.2-15.2)
--- NOTE | 2020-07-08 08:17 | Emergency Department Report ---
ED Chest Pain HPI - General Chief Complaint: Chest Pain Stated Complaint: CHEST PAIN Time Seen by Provider: 07/08/20 08:13 Source: patient, EMS Mode of arrival: Wheelchair Limitations: No Limitations - History of Present Illness Initial Comments: This is a 44-year-old female recurrent chest pain usually at rest associated with left arm numbness consisting of substernal chest pressure. She has been at this facility several times for evaluation thereof. She was admitted at the end of May. I do not see that she had a formal cardiology consultation although she had an echo cardiogram at that time. I do not believe she had a stress test. Patient tells me that she did have a stress test 10 years ago but not since. She thinks that was at [place]. She has multiple risk factors for CAD to include father with [place], smoker, substantially obese and hypertension. Her Covid test was negative. Hospitalization Reason for admission: Chest pain Condition: Fair Hospital course: 44-year-old female with past medical history of asthma was brought to the emergency room because of chest pain for the past 6 hours she has had a constant sharp pain substernally and in the left chest associated with numbness of the left upper extremity. Patient states she is also had nausea/vomiting, diaphoresis and some shortness of breath with this chest pain. Patient currently gives her chest pain score of 9/10. Patient also states she has had a cough for 1 day that has been nonproductive. Patient denies history of fever. Patient states there were coworkers that have been exposed to Covid. The patient states today she lost her sense of taste. Patient states the last stress test she had was over 5 years ago and she has never had a cardiac catheterization In the emergency room initial cardiac enzyme is negative troponin is 0.01 but we're going to admit the patient for suspected Covid, patient O2 sat dropped to 88% on walking Since admission chest pain has resolved comes intermittent I did have extensive discussion trying to tease out the origin of the chest pain she was a bit evasive. Although she says she has had the same pain over and over in the past few months. On examination the pain was reproducible. Submammary on the left side and also substernal. It does not radiate. She unfortunately continues to smoke despite multiple warnings have extended that conversation and counseling for 15 minutes she verbalized understanding and will quit. She did have a mild leukocytosis which has resolved echocardiogram was unremarkable chest x-ray was unremarkable her Covid testing was negative Is agreeable to following up with cardiology outpatient. Atypical chest pain likely costochondritis Acute hypoxic respiratory failure now resolved Tobacco use disorder Disposition: DC-01 TO HOME OR SELFCARE Final Discharge Diagnosis (Prints w/discharge instructions): Atypical chest pain secondary to costochondritis Time spent for discharge: 35-minute Core Measure Documentation - Palliative Care Palliative Care/ Comfort Measures: Not Applicable - Core Measures Any of the following diagnoses?: none Exam - Physical Exam Narrative exam: VITAL SIGNS: Reviewed. GENERAL: The patient appears normally developed, Vital signs as documented. HEAD: No signs of head trauma. EYES: Pupils are equal. Extraocular motions intact. EARS: Hearing grossly intact. MOUTH: Oropharynx is normal. Poor dentition NECK: No adenopathy, no JVD. CHEST: Chest with clear breath sounds bilaterally. No wheezes, rales, or rh onchi. CARDIAC: Regular rate and rhythm. S1 and S2, without murmurs, gallops, or rubs. VASCULAR: No Edema. Peripheral pulses normal and equal in all extremities. ABDOMEN: Soft, non tender and non distended. No rebound or guarding, and no masses palpated. Bowel Sounds normal. MUSCULOSKELETAL: Good range of motion of all major joints. Extremities without clubbing, cyanosis or edema. NEUROLOGIC EXAM: Alert and oriented x 3 No focal sensory or strength deficits. Speech normal. Follows commands. PSYCHIATRIC: Mood normal. SKIN: detail exam as documented in skin assessment - Constitutional Vitals: Temp Pulse Resp BP Pulse Ox 98.2 F 68 18 117/70 99 06/25/20 05:24 06/25/20 05:24 06/25/20 05:24 06/25/20 05:24 06/25/20 05:24 Plan Activity: fall precautions, other (No exertional activity until evaluated by cardiology) Diet: low fat Special Instructions: record daily weights, record daily BP diary, smoking cessation Plan of Treatment: Quit tobacco use Follow with interior design consultant for stress test outpatient. No exertional activity until seen by interior design consultant Follow up with: SUBHA BRIONES MD [Primary Care Provider] - 3-5 Days LEANNA MANZO MD [Staff Physician] - 7 Days Prescriptions: Nicotine [Habitrol] 14 mg TD QDAY #14 patch Ketorolac [Toradol] 10 mg PO Q6H PRN #10 tablet PRN Reason: Pain MD Complaint: chest pain -: Gradual Onset: during rest Pain Location: substernal Pain Radiation: other (Left arm numbness) Severity scale (0 -10): 10 Quality: heaviness Consistency: intermittent Improves With: nothing Worsens With: nothing Context: other re: dyspnea. denies: nausea, vomting, diaphoresis Other Symptoms: cough. denies: fever (Occasional), syncope Treatments Prior to Arrival: none (Not on aspirin) - Related Data Previous Rx's Medication Instructions Recorded Last Taken Type Albuterol Sulfate [Ventolin HFA] 2 puff IH Q4H PRN #1 hfa.aer.ad 11/16/17 Unknown Rx Dicyclomine [Bentyl] 10 mg PO QID PRN #10 capsule 11/22/17 Unknown Rx Chlorhexidine Gluconate [Hibiclens] 10 ml TP BID #240 liquid 08/24/18 Unknown Rx Ibuprofen [Motrin 600 MG tab] 600 mg PO Q8H PRN #20 tablet 08/05/19 Unknown Rx Ondansetron [Zofran ODT TAB] 4 mg PO Q8HR PRN #20 tab.rapdis 04/13/20 Unknown Rx Tamsulosin [Flomax] 0.4 mg PO QDAY #5 cap 04/13/20 Unknown Rx Ketorolac [Toradol] 10 mg PO Q6H PRN #10 tablet 06/25/20 Unknown Rx Nicotine [Habitrol] 14 mg TD QDAY #14 patch 06/25/20 Unknown Rx Acetaminophen/Codeine [Tylenol 1 tab PO Q6H PRN #12 tab 06/30/20 Unknown Rx /Codeine # 3 tab] Azithromycin [Zithromax TAB] 500 mg PO QDAY 5 Days #5 tablet 06/30/20 Unknown Rx methylPREDNISolone [Medrol 4MG 4 mg PO DAILY 6 Days #1 tab.ds.pk 06/30/20 Unknown Rx DOSEPAK (21 tabs)] Allergies Allergy/AdvReac Type Severity Reaction Status Date / Time No Known Allergies Allergy Verified 04/13/20 15:42 Heart Score - HEART Score History: Highly suspicious EKG: Non-specific Age: < 45 Risk factors: > 3 risk factors or hx of atherosclerotic disease Troponin: < normal limit HEART Score: 5 - EKG Read Time Time EKG Completed: 09:35 EKG Read Time: 09:40 - Critical Actions Critical Actions: 4-6 pts:12-16.6% risk of adverse cardiac event. Should be admitted ED Review of Systems ROS: Stated complaint: CHEST PAIN Other details as noted in HPI Constitutional: denies: chills, fever Eyes: denies: eye pain, eye discharge, vision change ENT: denies: ear pain, throat pain Respiratory: shortness of breath. denies: cough, wheezing Cardiovascular: chest pain. denies: palpitations Endocrine: no symptoms reported Gastrointestinal: denies: abdominal pain, nausea, diarrhea Genitourinary: denies: urgency, dysuria, discharge Musculoskeletal: denies: back pain, joint swelling, arthralgia Skin: denies: rash, lesions Neurological: denies: headache, weakness, paresthesias Psychiatric: denies: anxiety, depression Hematological/Lymphatic: denies: easy bleeding, easy bruising ED Past Medical Hx - Past Medical History Previous Medical History?: Yes Hx Congestive Heart Failure: No Hx Diabetes: No Hx Deep Vein Thrombosis: Yes (Sounds dubious, never on anticoagulation now states cellulitis) Hx Pulmonary Embolism: No Hx Renal Disease: No Hx Kidney Stones: Yes Hx Asthma: Yes Hx COPD: No Hx Tuberculosis: Yes (States she is a carrier) Hx HIV: No - Surgical History Past Surgical History?: Yes Hx Coronary Stent: No Hx Pacemaker: No Hx Internal Defibrillator: No - Social History Smoking Status: Former Smoker Substance Use Type: None - Medications Home Medications: Home Medications Medication Instructions Recorded Confirmed Last Taken Type Albuterol Sulfate [Ventolin HFA] 2 puff IH Q4H PRN #1 hfa.aer.ad 11/16/17 Unknown Rx Dicyclomine [Bentyl] 10 mg PO QID PRN #10 capsule 11/22/17 Unknown Rx Chlorhexidine Gluconate [Hibiclens] 10 ml TP BID #240 liquid 08/24/18 Unknown Rx Ibuprofen [Motrin 600 MG tab] 600 mg PO Q8H PRN #20 tablet 08/05/19 Unknown Rx Ondansetron [Zofran ODT TAB] 4 mg PO Q8HR PRN #20 tab.rapdis 04/13/20 Unknown Rx Tamsulosin [Flomax] 0.4 mg PO QDAY #5 cap 04/13/20 Unknown Rx Ketorolac [Toradol] 10 mg PO Q6H PRN #10 tablet 06/25/20 Unknown Rx Nicotine [Habitrol] 14 mg TD QDAY #14 patch 06/25/20 Unknown Rx Acetaminophen/Codeine [Tylenol 1 tab PO Q6H PRN #12 tab 06/30/20 Unknown Rx /Codeine # 3 tab] Azithromycin [Zithromax TAB] 500 mg PO QDAY 5 Days #5 tablet 06/30/20 Unknown Rx methylPREDNISolone [Medrol 4MG 4 mg PO DAILY 6 Days #1 tab.ds.pk 06/30/20 Unknown Rx DOSEPAK (21 tabs)] ED Physical Exam - General Limitations: Altered Mental Status General appearance: alert, in no apparent distress, obese - Head Head exam: Present: atraumatic, normocephalic - Eye Eye exam: Present: normal appearance. Absent: scleral icterus - ENT ENT exam: Present: mucous membranes moist - Neck Neck exam: Present: normal inspection - Respiratory Respiratory exam: Present: normal lung sounds bilaterally. Absent: respiratory distress - Cardiovascular Cardiovascular Exam: Present: regular rate, normal rhythm. Absent: systolic murmur, diastolic murmur, rubs, gallop - GI/Abdominal GI/Abdominal exam: Present: soft, normal bowel sounds. Absent: distended, tenderness, guarding, rebound - Extremities Exam Extremities exam: Present: normal inspection, pedal edema (Mild). Absent: calf tenderness - Back Exam Back exam: Present: normal inspection - Neurological Exam Neurological exam: Present: alert, oriented X3, CN II-XII intact. Absent: motor sensory deficit - Psychiatric Psychiatric exam: Present: normal affect, normal mood - Skin Skin exam: Present: warm, dry, intact, normal color. Absent: rash ED Course Vital Signs 07/08/20 07/08/20 07/08/20 06:51 08:07 08:30 Temperature 98.4 F 98.2 F Pulse Rate 83 77 79 Respiratory 20 12 13 Rate Blood Pressure 142/85 105/67 123/60 Blood Pressure 105/67 [Left] O2 Sat by Pulse 97 98 99 Oximetry 07/08/20 07/08/20 07/08/20 09:00 09:43 10:01 Temperature Pulse Rate 77 93 H 73 Respiratory 11 L 17 14 Rate Blood Pressure 117/62 123/60 123/60 Blood Pressure [Left] O2 Sat by Pulse 98 99 Oximetry - Reevaluation(s) Reevaluation #1: Patient did complain of generalized pain in the emergency department. On reassessment she was not having chest pain. She was agreeable to hosp italization. Discussed with Dr. Arteaga and admitted for further evaluation. 07/08/20 10:42 KIKE score - Kike Score Age > 65: (0) No Aspirin use within the Past 7 Days: (0) No 3 or more CAD Risk Factors: (0) No 2 or more Angina events in past 24 hrs: (1) Yes Known CAD with more than 50% Stenosis: (0) No Elevated Cardiac Markers: (0) No ST Deviation Greater than 0.5mm: (0) No KIKE Score: 1 ED Medical Decision Making - Lab Data Result diagrams: 07/08/20 07:13 07/08/20 07:13 Laboratory Results - last 24 hr 07/08/20 07/08/20 07/08/20 07:13 07:13 07:13 WBC 13.3 H RBC 4.41 Hgb 13.9 Hct 41.4 MCV 94 MCH 32 MCHC 34 RDW 14.4 Plt Count 288 Lymph % (Auto) 20.4 [place] % (Auto) 5.1 Eos % (Auto) 1.1 Baso % (Auto) 0.3 Lymph # (Auto) 2.7 [place] # (Auto) 0.7 Eos # (Auto) 0.1 Baso # (Auto) 0.0 Seg Neutrophils % 73.1 H Seg Neutrophils # 9.8 H Sodium 134 L Potassium 4.0 Chloride 98.6 Carbon Dioxide 27 Anion Gap 12 BUN 20 H Creatinine 0.7 Estimated GFR > 60 BUN/Creatinine Ratio 29 Glucose 89 Calcium 9.0 Total Bilirubin 0.40 AST 15 ALT 13 Alkaline Phosphatase 64 Troponin T < 0.010 Total Protein 7.5 Albumin 4.2 Albumin/Globulin Ratio 1.3 HCG, Qual Negative - EKG Data -: EKG Interpreted by Mn EKG shows normal: sinus rhythm, axis, intervals Rate: normal - EKG Data Interpretation: no acute changes, other (Increased voltage suggestive of LVH) - Radiology Data Radiology results: report reviewed (Chest x-ray no acute process), image reviewed Critical care attestation.: If time is entered above; I have spent that time in minutes in the direct care of this critically ill patient, excluding procedure time. ED Disposition Clinical Impression: Chest pain Qualifiers: Chest pain type: unspecified Qualified Code(s): R07.9 - Chest pain, unspecified Disposition: DC-09 OP ADMIT IP TO THIS HOSP Is pt being admited?: Yes Does the pt Need Aspirin: Yes Condition: Stable Instructions: Nonspecific Chest Pain, Adult Time of Disposition: 10:44
[2020-07-08 08:24] LABS: Alanine Aminotransferase 13 units/L (7-56); Albumin 4.2 g/dL (3.9-5); Blood Urea Nitrogen 20 mg/dL (7-17); Hemolysis Index 9
[2020-07-08 08:31] LABS: BUN/Creatinine Ratio 29
[2020-07-08] MEDS ORDERED: IPRATROPIUM/ALBUTEROL SULFATE 3 ML AMPUL.NEB IH ONE (08:37)
--- NOTE | 2020-07-08 09:03 | XRay Report ---
CHEST 1 VIEW 07/08/2020 8:31 AM INDICATION / CLINICAL INFORMATION: chest melania/SOB. COMPARISON: 06/30/2020 FINDINGS: SUPPORT DEVICES: None. HEART / MEDIASTINUM: No significant abnormality. LUNGS / PLEURA: No significant pulmonary or pleural abnormality. No pneumothorax. ADDITIONAL FINDINGS: No significant additional findings. IMPRESSION: 1. No acute findings or significant interval change when compared to 06/30/2020. Signer Name: Keon Adame MD Signed: 07/08/2020 8:58 AM Workstation Name: [id number]
--- NOTE | 2020-07-08 10:06 | Cat Scan Report ---
CTA CHEST WITH CONTRAST INDICATION / CLINICAL INFORMATION: Patient complains of pleuritic chest pain. TECHNIQUE: Axial CT images were obtained through the chest after injection of 100 cc Omni 350 IV cont rast. 3 plane MIP and/or 3D reconstructions were produced. All CT scans at this location are performe d using CT dose reduction for ALARA by means of automated exposure control. COMPARISON: 07/08/2020 chest radiograph FINDINGS: PULMONARY ARTERIES: Suboptimal opacification of the pulmonary arterial system allows for evaluation t hrough the lobar arteries. No filling defect to suggest pulmonary thromboembolism. THORACIC AORTA: No significant abnormality. HEART: No significant abnormality. CORONARY ARTERY CALCIFICATION: None. MEDIASTINUM / SOPHIA: No significant abnormality. PLEURA: No pleural effusion. No pneumothorax. LUNGS: No acute air space or interstitial disease. ADDITIONAL FINDINGS: None. UPPER ABDOMEN: No acute findings. SKELETAL STRUCTURES: No significant osseous abnormality. IMPRESSION: 1. Slightly suboptimal examination without CT evidence for pulmonary embolism, as described above. 2. No acute findings. Signer Name: Keon Adame MD Signed: 07/08/2020 10:01 AM Workstation Name: [id number]
[2020-07-08] MEDS ORDERED: MORPHINE 2 MG/1 ML INJ IV ONE (10:08)
[2020-07-08] MEDS ORDERED: ONDANSETRON 4 MG/2 ML INJ IV ONE (10:08)
[2020-07-08] MEDS ORDERED: ASPIRIN 325 MG TAB PO SCH (11:00)
[2020-07-08] MEDS ORDERED: NICOTINE 21 MG/24 HR PATCH TD ONE (11:12)
[2020-07-08] MEDS ORDERED: MORPHINE 2 MG/1 ML INJ IV PRN ×2 (11:12→12:03)
[2020-07-08] MEDS ORDERED: NITROGLYCERIN 0.4 MG TAB SUBL SL PRN (12:03)
[2020-07-08] MEDS ORDERED: traMADol 50 MG TAB PO PRN (12:03)
[2020-07-08] MEDS ORDERED: ONDANSETRON 4 MG/2 ML INJ IV PRN (12:03)
[2020-07-08] MEDS ORDERED: ACETAMINOPHEN 325 MG TAB PO PRN ×2 (12:03)
[2020-07-08] MEDS ORDERED: IBUPROFEN 600 MG TAB PO PRN (12:06)
--- NOTE | 2020-07-08 12:13 | History and Physical Report ---
History of Present Illness Date of examination: 07/08/20 Date of admission: 07/08/20 10:36 Chief complaint: Chest pain History of present illness: 44 years old female with history of asthma was brought to the hospital because of chest pain which is sharp 8/10 under the left breast radiating to the left arm since 5 AM this morning. Patient denied any shortness of breath. As per the patient patient complained of insomnia. Patient needs give a psychotic tablet at 10 PM yesterday night. Patient wake up with sharp substernal chest pain 10/10 as stated left arm numbness since 5 AM this morning. Initial cardiac enzyme is negative troponin is 0.010 She has multiple risk factors for CAD to include father with [place], smoker, and asthma. Her Covid test was negative. Past History Past Medical History: hypertension, other (Asthma) Medications and Allergies Allergies Allergy/AdvReac Type Severity Reaction Status Date / Time No Known Allergies Allergy Verified 04/13/20 15:42 Home Medications Medication Instructions Recorded Confirmed Last Taken Type Albuterol Sulfate [Ventolin HFA] 2 puff IH Q4H PRN #1 hfa.aer.ad 11/16/17 Unknown Rx Dicyclomine [Bentyl] 10 mg PO QID PRN #10 capsule 11/22/17 Unknown Rx Chlorhexidine Gluconate [Hibiclens] 10 ml TP BID #240 liquid 08/24/18 Unknown Rx Ibuprofen [Motrin 600 MG tab] 600 mg PO Q8H PRN #20 tablet 08/05/19 Unknown Rx Ondansetron [Zofran ODT TAB] 4 mg PO Q8HR PRN #20 tab.rapdis 04/13/20 Unknown Rx Tamsulosin [Flomax] 0.4 mg PO QDAY #5 cap 04/13/20 Unknown Rx Ketorolac [Toradol] 10 mg PO Q6H PRN #10 tablet 06/25/20 Unknown Rx Nicotine [Habitrol] 14 mg TD QDAY #14 patch 06/25/20 Unknown Rx Acetaminophen/Codeine [Tylenol 1 tab PO Q6H PRN #12 tab 06/30/20 Unknown Rx /Codeine # 3 tab] Azithromycin [Zithromax TAB] 500 mg PO QDAY 5 Days #5 tablet 06/30/20 Unknown Rx methylPREDNISolone [Medrol 4MG 4 mg PO DAILY 6 Days #1 tab.ds.pk 06/30/20 Unkno wn Rx DOSEPAK (21 tabs)] Active Meds: Active Medications Aspirin (Aspirin 325 Mg Tab) 325 mg PO QDAY [facility] Last Admin: 07/08/20 11:02 Dose: 325 mg Documented by: Morphine Sulfate (Morphine 2 Mg/1 Ml Inj) 2 mg IV Q4H PRN PRN Reason: Pain , Severe (7-10) Nicotine (Nicotine 21 Mg/24 Hr Patch) 21 mg TD QDAY [facility] Review of Systems Cardiovascular: chest pain Exam - Constitutional Vitals: Temp Pulse Resp BP Pulse Ox 98.2 F 97 H 19 129/79 98 07/08/20 08:07 07/08/20 11:30 07/08/20 11:30 07/08/20 11:30 07/08/20 11:30 General appearance: Present: no acute distress, well-nourished - EENT Eyes: Present: PERRL ENT: hearing intact, clear oral mucosa - Neck Neck: Present: supple, normal ROM - Respiratory Respiratory effort: normal Respiratory: bilateral: CTA - Cardiovascular Heart Sounds: Present: S1 & S2. Absent: rub, click - Extremities Extremities: pulses symmetrical, No edema Peripheral Pulses: within normal limits - Abdominal General gastrointestinal: Present: soft, non-tender, non-distended, normal bowel sounds Female genitourinary: Present: normal - Integumentary Integumentary: Present: clear, warm, dry - Musculoskeletal Musculoskeletal: gait normal, strength equal bilaterally - Psychiatric Psychiatric: appropriate mood/affect, intact judgment & insight - Neurologic Neurologic: CNII-XII intact, moves all extremities HEART Score - HEART Score EKG: Non-specific Age: < 45 Risk factors: > 3 risk factors or hx of atherosclerotic disease Troponin: Troponin T < 0.010 ng/mL (0.00-0.029) 07/08/20 09:58 Troponin: < normal limit - Critical Actions Critical Actions: 4-6 pts:12-16.6% risk of adverse cardiac event. Should be admitted Results - Labs CBC & Chem 7: 07/08/20 07:13 07/08/20 07:13 Labs: Laboratory Last Values WBC 13.3 K/mm3 (4.5-11.0) H 07/08/20 07:13 RBC 4.41 M/mm3 (3.65-5.03) 07/08/20 07:13 Hgb 13.9 gm/dl (10.1-14.3) 07/08/20 07:13 Hct 41.4 % (30.3-42.9) 07/08/20 07:13 MCV 94 fl (79-97) 07/08/20 07:13 MCH 32 pg (28-32) 07/08/20 07:13 MCHC 34 % (30-34) 07/08/20 07:13 RDW 14.4 % (13.2-15.2) 07/08/20 07:13 Plt Count 288 K/mm3 (140-440) 07/08/20 07:13 Lymph % (Auto) 20.4 % (13.4-35.0) 07/08/20 07:13 [place] % (Auto) 5.1 % (0.0-7.3) 07/08/20 07:13 Eos % (Auto) 1.1 % (0.0-4.3) 07/08/20 07:13 Baso % (Auto) 0.3 % (0.0-1.8) 07/08/20 07:13 Lymph # (Auto) 2.7 K/mm3 (1.2-5.4) 07/08/20 07:13 [place] # (Auto) 0.7 K/mm3 (0.0-0.8) 07/08/20 07:13 Eos # (Auto) 0.1 K/mm3 (0.0-0.4) 07/08/20 07:13 Baso # (Auto) 0.0 K/mm3 (0.0-0.1) 07/08/20 07:13 Seg Neutrophils % 73.1 % (40.0-70.0) H 07/08/20 07:13 Seg Neutrophils # 9.8 K/mm3 (1.8-7.7) H 07/08/20 07:13 Sodium 134 mmol/L (137-145) L 07/08/20 07:13 Potassium 4.0 mmol/L (3.6-5.0) 07/08/20 07:13 Chloride 98.6 mmol/L (98-107) 07/08/20 07:13 Carbon Dioxide 27 mmol/L (22-30) 07/08/20 07:13 Anion Gap 12 mmol/L 07/08/20 07:13 BUN 20 mg/dL (7-17) H 07/08/20 07:13 Creatinine 0.7 mg/dL (0.6-1.2) 07/08/20 07:13 Estimated GFR > 60 ml/min 07/08/20 07:13 BUN/Creatinine Ratio 29 % 07/08/20 07:13 Glucose 89 mg/dL (65-100) 07/08/20 07:13 Calcium 9.0 mg/dL (8.4-10.2) 07/08/20 07:13 Total Bilirubin 0.40 mg/dL (0.1-1.2) 07/08/20 07:13 AST 15 units/L (5-40) 07/08/20 07:13 ALT 13 units/L (7-56) 07/08/20 07:13 Alkaline Phosphatase 64 units/L (35-129) 07/08/20 07:13 Troponin T < 0.010 ng/mL (0.00-0.029) 07/08/20 09:58 Total Protein 7.5 g/dL (6.3-8.2) 07/08/20 07:13 Albumin 4.2 g/dL (3.9-5) 07/08/20 07:13 Albumin/Globulin Ratio 1.3 % 07/08/20 07:13 HCG, Qual Negative (Negative) 07/08/20 07:13 - Imaging and Cardiology CT scan - chest: report reviewed Assessment and Plan Advance Directives: No VTE prophylaxis?: Mechanical Plan of care discussed with patient/family: Yes - Patient Problems (1) Acute coronary syndrome Current Visit: Yes Status: Acute Plan to address problem: Admit the patient to the medical telemetry. Put on chest pain pathway. Aspirin 325 mg p.o. daily. Nitroglycerin as needed. Lipitor 40 mg p.o. daily. Serial cardiac enzyme we will do echocardiogram and Lexiscan. Will consult cardiology if needed. Heparin 5000 units subcu every 8 hours (2) Tobacco abuse Current Visit: Yes Status: Acute Plan to address problem: Patient counseled regarding quitting smoking. Patient is giving nicotine patch 21 mg to the skin daily (3) Asthma Current Visit: No Status: Acute Plan to address problem: Stable. Oxygen by nasal cannula 2 l/min DuoNeb by nebulizer every 4 hours as needed. We will continue the home medication including steroid, antibiotic. (4) DVT prophylaxis Current Visit: No Status: Acute Plan to address problem: Heparin 5000 units subcu every 8 hours for DVT prophylaxis. Pepcid 20 mg p.o. twice daily for GI prophylaxis. Patient is a full code
[2020-07-08] MEDS ORDERED: ALPRAZolam 0.25 MG TAB PO PRN (14:10)
[2020-07-08 14:14] VITALS: BP 112/67
[2020-07-08 14:46] LABS: Blood Urea Nitrogen 16 mg/dL (7-17); Calcium 8.8 mg/dL (8.4-10.2); Hemolysis Index 3
[2020-07-08 14:48] LABS: BUN/Creatinine Ratio 27; Basophils % (Auto) 0.3 % (0.0-1.8); Eosinophils # (Auto) 0.1 K/mm3 (0.0-0.4); Eosinophils % (Auto) 0.6 % (0.0-4.3); Hematocrit 40.9 % (30.3-42.9); Hemoglobin 13.7 gm/dl (10.1-14.3); Lymphocytes # (Auto) 2.5 K/mm3 (1.2-5.4); Lymphocytes % (Auto) 19.5 % (13.4-35.0); Mean Corpuscular HGB Conc 34 % (30-34); Mean Corpuscular Volume 93 fl (79-97); Monocytes # (Auto) 0.9 K/mm3 (0.0-0.8); Monocytes % (Auto) 6.8 % (0.0-7.3); Platelet Count 301 K/mm3 (140-440); Red Cell Distribution Width 14.3 % (13.2-15.2)
[2020-07-08 14:51] LABS: Chol/HDL Ratio 2.44 %
[2020-07-08] MEDS ORDERED: FAMOTIDINE 20 MG TAB PO SCH (22:00)
[2020-07-09] MEDS ORDERED: NON-FORMULARY EACH (Methylprednisolone [Medrol 4mg Dosepak (21 Tabs)] 4 MG Tab.Ds.Pk) PO SCH (10:00)
[2020-07-09] MEDS ORDERED: methylPREDNISolone 4 MG TAB PO SCH (10:00)
[2020-07-09] MEDS ORDERED: TAMSULOSIN 0.4 MG CAP PO SCH (10:00)
[2020-07-09] MEDS ORDERED: NICOTINE 21 MG/24 HR PATCH TD SCH (10:00)
[2020-07-09] MEDS ORDERED: ASPIRIN EC 325 MG TAB PO SCH (10:00)
[2020-07-09] MEDS ORDERED: AZITHROMYCIN 500 MG PO SCH (10:00)
[2020-07-09] MEDS ORDERED: AZITHROMYCIN 250 MG TAB PO SCH (10:00)
--- NOTE | 2020-07-09 11:13 | Electrocardiograph Report ---
[facility] Test Date: 2020-07-08 Test Time: 06:45:19 Pat Name: RICHARD HERRERA Department: Room: A462 1 Gender: F Drivers License Examiner: MARY ELLEN : 1975 Requested By: RAFAEL CHAVEZ Order Number: [id number] Reading MD: Shayne Copeland Measurements Intervals [place] Rate: 73 P: 82 [place]: 140 QRS: 82 QRSD: 91 T: 67 QT: 381 QTc: 420 Interpretive Statements Sinus rhythm Right atrial enlargement Compared to ECG 06/29/2020 22:33:19 Atrial abnormality now present Electronically Signed On 07-09-2020 11:13:21 EDT by Shayne Copeland
--- NOTE | 2020-07-09 11:14 | Electrocardiograph Report ---
[facility] Test Date: 2020-07-08 Test Time: 11:30:49 Pat Name: RICHARD HERRERA Department: Room: A462 1 Gender: F Career Advisor: ALEXANDER : 1975 Requested By: RAFAEL CHAVEZ Order Number: [id number] Reading MD: Shayne Copeland Measurements Intervals [place] Rate: 82 P: 67 [place]: 135 QRS: 52 QRSD: 95 T: 28 QT: 379 QTc: 442 Interpretive Statements Sinus rhythm Compared to ECG 07/08/2020 06:45:19 Atrial abnormality no longer present Electronically Signed On 07-09-2020 11:14:15 EDT by Shayne Copeland
== END 2020-07-08 16:30 | disposition left against medical advice (07) ==
LOC: ED 05:53 → 4A 10:36
PROVIDERS: ADMIT Hospitalist; ATTEND Hospitalist
DX: I24.9 Acute ischemic heart disease, unspecified (principal); J45.909 Unspecified asthma, uncomplicated; I10 Essential (primary) hypertension; Z79.82 Long term (current) use of aspirin; Z87.442 Personal history of urinary calculi; Z86.718 Personal history of other venous thrombosis and embolism; Z86.11 Personal history of tuberculosis; Z87.891 Personal history of nicotine dependence
CPT/HCPCS: 36415; 71045; 71275; 80053; 80061; 84484; 84703; 85025; 93005; 96374; 96375; 99285; G0378; J2270; J2405; Q9967; 80048

== ENCOUNTER 2021-03-14 14:14 | Emergency (ER) | payer OTHER, SELFPAY ==
--- NOTE | 2021-03-14 14:47 | Emergency Department Report ---
Minor Respiratory - HPI Chief Complaint: Upper Respiratory Infection Stated Complaint: back pain/cough Time Seen by Provider: 03/14/21 14:29 Duration: 2 Days Severity: moderate Minor Respiratory: Yes Able to Tolerate Fluids, Yes Cough, Yes Fever (Yesterday), No Rhinorrhea, No Sore Throat, No Ear Pain, No Sick Contacts, No Hemoptysis, No Chest Pain, No Shortness of Breath Other History: 45-year-old obese female presents to the emergency room for cough for 2 days. Patient states she had a fever last night T-max of 100. She is vaccinated and boosted for COVID. Reports that she has taken Tylenol and NyQuil has not taken anything today for symptoms. ED Review of Systems ROS: Stated complaint: back pain/cough Other details as noted in HPI Comment: All other systems reviewed and negative ED Past Medical Hx - Past Medical History Hx Congestive Heart Failure: No Hx Diabetes: No Hx Deep Vein Thrombosis: Yes (Sounds dubious, never on anticoagulation now states cellulitis) Hx Pulmonary Embolism: No Hx Renal Disease: No Hx Kidney Stones: Yes Hx Asthma: Yes Hx COPD: No Hx Tuberculosis: Yes (States she is a carrier) Hx HIV: No - Surgical History Hx Coronary Stent: No Hx Pacemaker: No Hx Internal Defibrillator: No - Social History Smoking Status: Former Smoker Substance Use Type: None - Medications Home Medications: Home Medications Medication Instructions Recorded Confirmed Last Taken Type Albuterol Sulfate [Ventolin HFA] 2 puff IH Q4H PRN #1 hfa.aer.ad 11/16/17 Unknown Rx Dicyclomine [Bentyl] 10 mg PO QID PRN #10 capsule 11/22/17 Unknown Rx Chlorhexidine Gluconate [Hibiclens] 10 ml TP BID #240 liquid 08/24/18 Unknown Rx Ibuprofen [Motrin 600 MG tab] 600 mg PO Q8H PRN #20 tablet 08/05/19 Unknown Rx Ondansetron [Zofran ODT TAB] 4 mg PO Q8HR PRN #20 tab.rapdis 04/13/20 Unknown Rx Tamsulosin [Flomax] 0.4 mg PO QDAY #5 cap 04/13/20 Unknown Rx Ketorolac [Toradol] 10 mg PO Q6H PRN #10 tablet 06/25/20 Unknown Rx Nicotine [Habitrol] 14 mg TD QDAY #14 patch 06/25/20 Unknown Rx Acetaminophen/Codeine [Tylenol 1 tab PO Q6H PRN #12 tab 06/30/20 Unknown Rx /Codeine # 3 tab] Azithromycin [Zithromax TAB] 500 mg PO QDAY 5 Days #5 tablet 06/30/20 Unknown Rx methylPREDNISolone [Medrol 4MG 4 mg PO DAILY 6 Days #1 tab.ds.pk 06/30/20 Unknown Rx DOSEPAK (21 tabs)] Minor Respiratory Exam - Exam General: Vital signs noted. No distress. Alert and acting appropriately. HEENT: Yes Moist Mucous Membranes, No Pharyngeal Erythema, No Pharyngeal Exudates, No Rhinorrhea, No Conjuctival Injection, No Frontal Tenderness, No Maxillary Tenderness Ear: Neither TM Bulge, Neither TM Erythema, Neither EAC Pain, Neither EAC Discharge Neck: Yes Supple, No Adenopathy Lungs: Yes Good Air Exchange, No Wheezes, No Ronchi, No Stridor, No Cough, No Labored Respirations, No Retractions, No Use of Accessory Muscles, No Other Abnormal Lung Sounds Heart: Yes Regular, No Murmur Abdomen: Yes Normal Bowel Sounds, No Tenderness, No Peritoneal Signs Skin: No Rash, No Edema Neurologic: Alert and oriented, no deficits. Musculoskeletal: Unremarkable. ED Course Vital Signs 03/14/21 14:22 Temperature 98.6 F Pulse Rate 80 Respiratory 16 Rate Blood Pressure 122/74 O2 Sat by Pulse 98 Oximetry ED Medical Decision Making - Medical Decision Making 45-year-old obese female presents to the emergency room for cough for 2 days. Patient states she had a fever last night T-max of 100. She is vaccinated and boosted for COVID. Reports that she has taken Tylenol and NyQuil has not taken anything today for symptoms. Suspected COVID. Discussed with patient to take medications for her symptoms. Increase her water intake advance her diet as tolerated. Critical care attestation.: If time is entered above; I have spent that time in minutes in the direct care of this critically ill patient, excluding procedure time. ED Disposition Clinical Impression: Suspected COVID-19 virus infection, Viral infection Disposition: HOME / SELF CARE / HOMELESS Is pt being admited?: No Does the pt Need Aspirin: No Condition: Stable Instructions: COVID-19 Frequently Asked Questions, COVID-19: How to Protect Yourself and Others - CDC, Prevent the Spread of COVID-19 if You Are Sick - CDC, Viral Respiratory Infection, Jxsz-Vs-Itop Additional Instructions: Recommend increase your fluid intake. Tylenol or ibuprofen [id number] cough medication such as Robitussin Delsym or Mucinex. Follow-up with your primary care provider. Referrals: MARITA MCMAHAN MD [Staff Physician] - 3-5 Days Forms: Work/School Release Form(ED) Time of Disposition: 14:48
[2021-03-14 15:40] VITALS: BP 121/72
== END 2021-03-14 15:40 | disposition home or self-care (01) ==
LOC: ED 14:14
DX: B34.9 Viral infection, unspecified (principal); Z20.822 Contact with and (suspected) exposure to COVID-19; J45.909 Unspecified asthma, uncomplicated; Z87.442 Personal history of urinary calculi; Z88.2 Allergy status to sulfonamides; Z88.8 Allergy status to other drugs, medicaments and biological substances
CPT/HCPCS: 99282

== ENCOUNTER 2021-04-01 12:59 | Emergency (ER) | payer MEDICAID, SELFPAY ==
[2021-04-01] MEDS ORDERED: oxyCODONE /ACETAMINOPHEN 5-325MG TAB PO ONE (13:41)
[2021-04-01] MEDS ORDERED: IBUPROFEN 800 MG TAB PO STA (13:41)
[2021-04-01] MEDS ORDERED: LIDOCAINE 1%/EPINEPHRINE 1:100,000 VIAL (20 ML) INFILTRATI NR (13:45)
--- NOTE | 2021-04-01 14:28 | Emergency Department Report ---
ED General Adult HPI - General Chief complaint: Skin/Abscess/Foreign Body Stated complaint: BOIL ON LT BUTTOCK Time Seen by Provider: 04/01/21 13:25 Source: patient Mode of arrival: Ambulatory Limitations: No Limitations - History of Present Illness Initial comments: 45-year-old female patient presents with complaints of painful abscess to left buttocks x2 days. Patient states the abscess did begin to drain after she squeezed it. She denies any fever/chills/sweats. Drug allergies include Bactrim. -: Sudden Severity scale (0 -10): 9 Quality: aching - Related Data Previous Rx's Medication Instructions Recorded Last Taken Type Albuterol Sulfate [Ventolin HFA] 2 puff IH Q4H PRN #1 hfa.aer.ad 11/16/17 Unknown Rx Dicyclomine [Bentyl] 10 mg PO QID PRN #10 capsule 11/22/17 Unknown Rx Chlorhexidine Gluconate [Hibiclens] 10 ml TP BID #240 liquid 08/24/18 Unknown Rx Ibuprofen [Motrin 600 MG tab] 600 mg PO Q8H PRN #20 tablet 08/05/19 Unknown Rx Ondansetron [Zofran ODT TAB] 4 mg PO Q8HR PRN #20 tab.rapdis 04/13/20 Unknown Rx Tamsulosin [Flomax] 0.4 mg PO QDAY #5 cap 04/13/20 Unknown Rx Ketorolac [Toradol] 10 mg PO Q6H PRN #10 tablet 06/25/20 Unknown Rx Nicotine [Habitrol] 14 mg TD QDAY #14 patch 06/25/20 Unknown Rx Acetaminophen/Codeine [Tylenol 1 tab PO Q6H PRN #12 tab 06/30/20 Unknown Rx /Codeine # 3 tab] Azithromycin [Zithromax TAB] 500 mg PO QDAY 5 Days #5 tablet 06/30/20 Unknown Rx methylPREDNISolone [Medrol 4MG 4 mg PO DAILY 6 Days #1 tab.ds.pk 06/30/20 Unknown Rx DOSEPAK (21 tabs)] Acetaminophen/Codeine [Tylenol 1 tab PO Q8H PRN #10 tab 04/01/21 Unknown Rx /Codeine # 3 tab] Clindamycin [Clindamycin CAP] 300 mg PO Q6H 10 Days #40 cap 04/01/21 Unknown Rx Ibuprofen [Motrin 800 MG tab] 800 mg PO Q8HR PRN #20 tablet 04/01/21 Unknown Rx Mupirocin [Bactroban 2% OINT] 1 applic TP TID 10 Days #1 tube 04/01/21 Unknown Rx Allergies Allergy/AdvReac Type Severity Reaction Status Date / Time oats Allergy Intermediate Hives Verified 04/01/21 13:23 sulfamethoxazole AdvReac Hives Verified 04/01/21 13:23 [From Bactrim] trimethoprim [From Bactrim] AdvReac Hives Verified 04/01/21 13:23 ED Review of Systems ROS: Stated complaint: BOIL ON LT BUTTOCK Other details as noted in HPI Constitutional: denies: chills, fever, malaise Musculoskeletal: denies: arthralgia Skin: change in color Neurological: denies: numbness, paresthesias ED Past Medical Hx - Past Medical History Hx Congestive Heart Failure: No Hx Diabetes: No Hx Deep Vein Thrombosis: Yes (Sounds dubious, never on anticoagulation now states cellulitis) Hx Pulmonary Embolism: No Hx Renal Disease: No Hx Kidney Stones: Yes Hx Asthma: Yes Hx COPD: No Hx Tuberculosis: Yes (States she is a carrier) Hx HIV: No - Surgical History Hx Coronary Stent: No Hx Pacemaker: No Hx Internal Defibrillator: No - Social History Smoking Status: Former Smoker Substance Use Type: None - Medications Home Medications: Home Medications Medication Instructions Recorded Confirmed Last Taken Type Albuterol Sulfate [Ventolin HFA] 2 puff IH Q4H PRN #1 hfa.aer.ad 11/16/17 Unknown Rx Dicyclomine [Bentyl] 10 mg PO QID PRN #10 capsule 11/22/17 Unknown Rx Chlorhexidine Gluconate [Hibiclens] 10 ml TP BID #240 liquid 08/24/18 Unknown Rx Ibuprofen [Motrin 600 MG tab] 600 mg PO Q8H PRN #20 tablet 08/05/19 Unknown Rx Ondansetron [Zofran ODT TAB] 4 mg PO Q8HR PRN #20 tab.rapdis 04/13/20 Unknown Rx Tamsulosin [Flomax] 0.4 mg PO QDAY #5 cap 04/13/20 Unknown Rx Ketorolac [Toradol] 10 mg PO Q6H PRN #10 tablet 06/25/20 Unknown Rx Nicotine [Habitrol] 14 mg TD QDAY #14 patch 06/25/20 Unknown Rx Acetaminophen/Codeine [Tylenol 1 tab PO Q6H PRN #12 tab 06/30/20 Unknown Rx /Codeine # 3 tab] Azithromycin [Zithromax TAB] 500 mg PO QDAY 5 Days #5 tablet 06/30/20 Unknown Rx methylPREDNISolone [Medrol 4MG 4 mg PO DAILY 6 Days #1 tab.ds.pk 06/30/20 Unknown Rx DOSEPAK (21 tabs)] Acetaminophen/Codeine [Tylenol 1 tab PO Q8H PRN #10 tab 04/01/21 Unknown Rx /Codeine # 3 tab] Clindamycin [Clindamycin CAP] 300 mg PO Q6H 10 Days #40 cap 04/01/21 Unknown Rx Ibuprofen [Motrin 800 MG tab] 800 mg PO Q8HR PRN #20 tablet 04/01/21 Unknown Rx Mupirocin [Bactroban 2% OINT] 1 applic TP TID 10 Days #1 tube 04/01/21 Unknown Rx ED Physical Exam - General Limitations: No Limitations General appearance: alert, in no apparent distress, obese - Head Head exam: Present: atraumatic, normocephalic - Eye Eye exam: Present: normal appearance - Respiratory Respiratory exam: Absent: respiratory distress - Cardiovascular Cardiovascular Exam: Present: regular rate - Neurological Exam Neurological exam: Present: alert, oriented X3 - Psychiatric Psychiatric exam: Present: normal affect, normal mood - Skin Skin exam: Present: warm, dry, erythema (Approximately 4 cm area of erythema noted to left lower buttock with central fluctuance and tenderness to palpation noted) ED Course Vital Signs 04/01/21 04/01/21 04/01/21 13:20 15:25 15:52 Temperature 99.0 F 98.3 F Pulse Rate 105 H 78 94 H Respiratory 16 18 Rate Blood Pressure 123/79 110/72 O2 Sat by Pulse 99 97 Oximetry - I & D Buttocks Type of Procedure: Simple Site: Left buttock Blade Size: 11 I & D Procedure: betadine prep, sterile drapes applied, sterile dressing applied Progress: 4 cc of lidocaine 1% used anesthetize area. 11 blade used to open wound. Mild purulent drainage obtained from wound. Sterile dressing placed on wound. Minimal bleeding occurred. Patient tolerated procedure well without any immediate complications ED Medical Decision Making - Medical Decision Making 45-year-old female patient presents with complaints of painful abscess to left buttocks x2 days. Patient states the abscess did begin to drain after she squeezed it. She denies any fever/chills/sweats. Drug allergies include Bactrim. Incision and drainage performed. Patient tolerated procedure well without any immediate complications. Clindamycin prescription given for home along with mupirocin. Recommend follow-up with PCP for wound recheck in 3 to 5 days or follow-up in the ED. She is well-appearing, her vitals are within normal limits, she is stable for discharge home. Discussed wound care and signs and symptoms that should prompt immediate return to the emergency department with priti colmenares who verbalizes understanding Critical care attestation.: If time is entered above; I have spent that time in minutes in the direct care of this critically ill patient, excluding procedure time. ED Disposition Clinical Impression: Abscess of buttock, left Disposition: 01 HOME / SELF CARE / HOMELESS Is pt being admited?: No Condition: Stable Instructions: Skin Abscess, Incision and Drainage, Care After Prescriptions: Mupirocin [Bactroban 2% OINT] 1 applic TP TID 10 Days #1 tube Clindamycin [Clindamycin CAP] 300 mg PO Q6H 10 Days #40 cap Ibuprofen [Motrin 800 MG tab] 800 mg PO Q8HR PRN #20 tablet PRN Reason: pain Acetaminophen/Codeine [Tylenol /Codeine # 3 tab] 1 tab PO Q8H PRN #10 tab PRN Reason: Pain , Severe (7-10) Referrals: PRIMARY CARE,MD [Primary Care Provider] - 3-5 Days Forms: Work/School Release Form(ED)
[2021-04-01 15:59] VITALS: BP 110/72
== END 2021-04-01 15:59 | disposition home or self-care (01) ==
LOC: ED 12:59
DX: L02.31 Cutaneous abscess of buttock (principal); Z87.891 Personal history of nicotine dependence; Z91.018 Allergy to other foods; Z88.2 Allergy status to sulfonamides; J45.909 Unspecified asthma, uncomplicated
CPT/HCPCS: 99282

== ENCOUNTER 2021-04-16 17:45 | Emergency (ER) | payer SELFPAY | END 2021-04-16 21:25 | disposition left against medical advice (07) | LOC: ED 17:45 | DX: M54.9 Dorsalgia, unspecified (principal); Z53.21 Procedure and treatment not carried out due to patient leaving prior to being seen by health care provider ==

== ENCOUNTER 2021-05-06 21:49 | Emergency (ER) | payer SELFPAY ==
--- NOTE | 2021-05-07 00:51 | XRay Report ---
LUMBAR SPINE 2 VIEWS INDICATION / CLINICAL INFORMATION: fall, lower back pain. COMPARISON: None available. FINDINGS: VERTEBRAE: No acute fracture. Partially lumbarized S1 vertebral body. Normal alignment. DISC SPACES / FACET JOINTS:Mild facet joint narrowing at L4-5 and L5-S1. PARASPINAL SOFT TISSUES:No significant abnormality. ADDITIONAL FINDINGS: None. IMPRESSION: 1. No evidence of acute lumbar spine fracture. Signer Name: Wilmer Guzman II, MD Signed: 05/07/2021 12:46 AM Workstation Name: [id number]
[2021-05-07] MEDS ORDERED: IBUPROFEN 600 MG TAB PO ONE (01:12)
[2021-05-07] MEDS ORDERED: HYDROcodone/ACETAMINOPHEN 7.5-325MG TAB PO ONE (01:12)
[2021-05-07] MEDS ORDERED: ONDANSETRON 4 MG ODT TAB PO ONE (01:12)
--- NOTE | 2021-05-07 01:19 | Emergency Department Report ---
ED Fall HPI - General Chief Complaint: Fall Stated Complaint: FELL ON FRONT PORCH Source: patient Mode of arrival: Ambulatory - History of Present Illness Initial Comments: Patient is a 45-year-old female with a history of chronic low back pain with sciatica, kidney stones, asthma, cervical cancer in remission, DVT who presents to the ED with complaint of acute exacerbation of her chronic low back pain that radiates to the lower extremities bilaterally after she slipped off her porch and fell down landing on her back about 3 hours ago. Patient states that the pain has been constant and persistent and worse with any movement. Patient denies loss of consciousness, dizziness, syncope, seizures, chest pain or shortness of breath, head or neck injuries, abdominal pain, hematuria, numbness and tingling or weakness of lower extremities bilaterally or change in vision and headache. MD Complaint: fall, other (Low back pain) -: Sudden, hour(s) (3) Fall From: standing, other (Fell off the porch) When Fall Occurred: 1-3 hours [employer] Fall Witnessed: yes, by family Place Fall Occurred: home Loss of Consciousness: none Prolonged Down Time?: no Symptoms Prior to Fall: none Location: back (Low back pain) Severity: severe Severity scale (0 -10): 8 Quality: sharp, aching Context: tripped/slipped Associated Symptoms: denies. denies: headache, neck pain, numbness, weakness, chest paint, shortness of breath, abdominal pain, hematuria, lightheaded - Related Data Previous Rx's Medication Instructions Recorded Last Taken Type Albuterol Sulfate [Ventolin HFA] 2 puff IH Q4H PRN #1 hfa.aer.ad 11/16/17 Unknown Rx Dicyclomine [Bentyl] 10 mg PO QID PRN #10 capsule 11/22/17 Unknown Rx Chlorhexidine Gluconate [Hibiclens] 10 ml TP BID #240 liquid 08/24/18 Unknown Rx Ibuprofen [Motrin 600 MG tab] 600 mg PO Q8H PRN #20 tablet 08/05/19 Unknown Rx Ondansetron [Zofran ODT TAB] 4 mg PO Q8HR PRN #20 tab.rapdis 04/13/20 Unknown Rx Tamsulosin [Flomax] 0.4 mg PO QDAY #5 cap 04/13/20 Unknown Rx Ketorolac [Toradol] 10 mg PO Q6H PRN #10 tablet 06/25/20 Unknown Rx Nicotine [Habitrol] 14 mg TD QDAY #14 patch 06/25/20 Unknown Rx Acetaminophen/Codeine [Tylenol 1 tab PO Q6H PRN #12 tab 06/30/20 Unknown Rx /Codeine # 3 tab] Azithromycin [Zithromax TAB] 500 mg PO QDAY 5 Days #5 tablet 06/30/20 Unknown Rx methylPREDNISolone [Medrol 4MG 4 mg PO DAILY 6 Days #1 tab.ds.pk 06/30/20 Unknown Rx DOSEPAK (21 tabs)] Acetaminophen/Codeine [Tylenol 1 tab PO Q8H PRN #10 tab 04/01/21 Unknown Rx /Codeine # 3 tab] Clindamycin [Clindamycin CAP] 300 mg PO Q6H 10 Days #40 cap 04/01/21 Unknown Rx Mupirocin [Bactroban 2% OINT] 1 applic TP TID 10 Days #1 tube 04/01/21 Unknown Rx Cyclobenzaprine [Flexeril] 10 mg PO Q8H PRN #30 tab 05/07/21 Unknown Rx Ibuprofen [Motrin 800 MG tab] 800 mg PO Q8HR PRN #30 tablet 05/07/21 Unknown Rx predniSONE [Deltasone] 40 mg PO QDAY #10 tab 05/07/21 Unknown Rx traMADoL [Ultram] 50 mg PO Q6HR PRN #12 tablet 05/07/21 Unknown Rx Allergies Allergy/AdvReac Type Severity Reaction Status Date / Time oats Allergy Intermediate Hives Verified 04/01/21 13:23 sulfamethoxazole AdvReac Hives Verified 04/01/21 13:23 [From Bactrim] trimethoprim [From Bactrim] AdvReac Hives Verified 04/01/21 13:23 ED Review of Systems ROS: Stated complaint: FELL ON FRONT PORCH Other details as noted in HPI Constitutional: denies: chills, fever Eyes: denies: eye pain, eye discharge, vision change ENT: denies: ear pain, throat pain Respiratory: denies: cough, shortness of breath, wheezing Cardiovascular: denies: chest pain, palpitations Endocrine: no symptoms reported Gastrointestinal: denies: abdominal pain, nausea, vomiting, diarrhea Genitourinary: denies: urgency, dysuria, discharge Musculoskeletal: back pain (Low back pain). denies: joint swelling, arthralgia Skin: denies: rash, lesions Neurological: denies: headache, weakness, paresthesias Psychiatric: denies: anxiety, depression Hematological/Lymphatic: denies: easy bleeding, easy bruising ED Past Medical Hx - Past Medical History Previous Medical History?: Yes Hx Congestive Heart Failure: No Hx Diabetes: No Hx Deep Vein Thrombosis: Yes (Sounds dubious, never on anticoagulation now states cellulitis) Hx Pulmonary Embolism: No Hx Renal Disease: No Hx Kidney Stones: Yes Hx Asthma: Yes Hx COPD: No Hx Tuberculosis: Yes (States she is a carrier) Hx HIV: No Additional medical history: Cervical Ca - Finished Tx - Surgical History Past Surgical History?: Yes Hx Coronary Stent: No Hx Pacemaker: No Hx Internal Defibrillator: No - Social History Smoking Status: Former Smoker Substance Use Type: None - Medications Home Medications: Home Medications Medication Instructions Recorded Confirmed Last Taken Type Albuterol Sulfate [Ventolin HFA] 2 puff IH Q4H PRN #1 hfa.aer.ad 11/16/17 U nknown Rx Dicyclomine [Bentyl] 10 mg PO QID PRN #10 capsule 11/22/17 Unknown Rx Chlorhexidine Gluconate [Hibiclens] 10 ml TP BID #240 liquid 08/24/18 Unknown Rx Ibuprofen [Motrin 600 MG tab] 600 mg PO Q8H PRN #20 tablet 08/05/19 Unknown Rx Ondansetron [Zofran ODT TAB] 4 mg PO Q8HR PRN #20 tab.rapdis 04/13/20 Unknown Rx Tamsulosin [Flomax] 0.4 mg PO QDAY #5 cap 04/13/20 Unknown Rx Ketorolac [Toradol] 10 mg PO Q6H PRN #10 tablet 06/25/20 Unknown Rx Nicotine [Habitrol] 14 mg TD QDAY #14 patch 06/25/20 Unknown Rx Acetaminophen/Codeine [Tylenol 1 tab PO Q6H PRN #12 tab 06/30/20 Unknown Rx /Codeine # 3 tab] Azithromycin [Zithromax TAB] 500 mg PO QDAY 5 Days #5 tablet 06/30/20 Unknown Rx methylPREDNISolone [Medrol 4MG 4 mg PO DAILY 6 Days #1 tab.ds.pk 06/30/20 Unknown Rx DOSEPAK (21 tabs)] Acetaminophen/Codeine [Tylenol 1 tab PO Q8H PRN #10 tab 04/01/21 Unknown Rx /Codeine # 3 tab] Clindamycin [Clindamycin CAP] 300 mg PO Q6H 10 Days #40 cap 04/01/21 Unknown Rx Mupirocin [Bactroban 2% OINT] 1 applic TP TID 10 Days #1 tube 04/01/21 Unknown Rx Cyclobenzaprine [Flexeril] 10 mg PO Q8H PRN #30 tab 05/07/21 Unknown Rx Ibuprofen [Motrin 800 MG tab] 800 mg PO Q8HR PRN #30 tablet 05/07/21 Unknown Rx predniSONE [Deltasone] 40 mg PO QDAY #10 tab 05/07/21 Unknown Rx traMADoL [Ultram] 50 mg PO Q6HR PRN #12 tablet 05/07/21 Unknown Rx ED Physical Exam - General Limitations: No Limitations General appearance: alert, in no apparent distress - Head Head exam: Present: atraumatic, normocephalic, normal inspection - Eye Eye exam: Present: normal appearance, PERRL, EOMI Pupils: Present: normal accommodation - ENT ENT exam: Present: normal exam, normal orophraynx, mucous membranes moist, TM's normal bilaterally, normal external ear exam - Neck Neck exam: Present: normal inspection, full ROM. Absent: tenderness - Respiratory Respiratory exam: Present: normal lung sounds bilaterally. Absent: respiratory distress, wheezes, stridor, chest wall tenderness, accessory muscle use, decreased breath sounds - Cardiovascular Cardiovascular Exam: Present: regular rate, normal rhythm, normal heart sounds. Absent: systolic murmur, diastolic murmur, rubs, gallop - GI/Abdominal GI/Abdominal exam: Present: soft, normal bowel sounds. Absent: tenderness, guarding, rebound, hyperactive bowel sounds, hypoactive bowel sounds, mass - Extremities Exam Extremities exam: Present: normal inspection, full ROM, normal capillary refill. Absent: tenderness - Back Exam Back exam: Present: normal inspection, full ROM, tenderness (Palpable lumbosacral paraspinal musculoskeletal tenderness), muscle spasm, paraspinal tenderness. Absent: CVA tenderness (R), CVA tenderness (L), vertebral tenderness - Neurological Exam Neurological exam: Present: alert, oriented X3, CN II-XII intact, normal gait, reflexes normal - Psychiatric Psychiatric exam: Present: normal affect, normal mood - Skin Skin exam: Present: warm, dry, intact, normal color. Absent: rash ED Course Vital Signs 05/06/21 23:52 Temperature 98.1 F Pulse Rate 83 Respiratory 17 Rate Blood Pressure 120/79 [Right] O2 Sat by Pulse 99 Oximetry ED Medical Decision Making - Radiology Data Radiology results: report reviewed, image reviewed [facility] [address] [place] [address] XRay Report Signed Patient: RICHARD HERRERA MR#: [id number] : 1975 Acct:[id number] Age/Sex: 45 / F ADM Date: 05/06/21 Loc: ED Attending Dr: Ordering Physician: AVELINA SHAHID MD Date of Service: 05/07/21 Procedure(s): XR spine lumbosacral 2-3V Accession Number(s): [id number] cc: ED MD ZEHRA Fluoro Time In Minutes: LUMBAR SPINE 2 VIEWS INDICATION / CLINICAL INFORMATION: fall, lower back pain. COMPARISON: None available. FINDINGS: VERTEBRAE: No acute fracture. Partially lumbarized S1 vertebral body. Normal alignment. DISC SPACES / FACET JOINTS:Mild facet joint narrowing at L4-5 and L5-S1. PARASPINAL SOFT TISSUES:No significant abnormality. ADDITIONAL FINDINGS: None. IMPRESSION: 1. No evidence of acute lumbar spine fracture. Signer Name: Oumou Guzman II, MD Signed: 05/07/2021 12:46 AM Workstation Name: [id number] Transcribed By: EDA Dictated By: OUMOU GUZMAN II, MD Electronically Authenticated By: OUMOU GUZMAN II, MD Signed Date/Time: 05/07/2145 DD/ TD/TT: - Medical Decision Making This is a 45-year-old female with a history of chronic low back pain with sciatica, kidney stones, asthma, cervical cancer in remission, DVT who presents to the ED with complaint of acute exacerbation of her chronic low back pain that radiates to the lower extremities bilaterally after she slipped off her porch and fell down landing on her back about 3 hours ago. Patient states that the pain has been constant and persistent and worse with any movement. In the ED, patient is alert and oriented x3 and is not in any distress. Patient was treated for pain in the ED and L-spine x-ray showed no acute fractures or subluxations. Patient symptoms are likely musculoskeletal following the injury due to a fall. On reevaluation, patient's pain is well controlled medication. Patient will discharge home on pain medications and muscle relaxants and advised to follow-up with her primary care physician in 5 to 7 days for reevaluation or return to the ED immediately if symptoms get worse. - Differential Diagnosis Muscle spasm; back injury; muscle strain; sciatica Critical care attestation.: If time is entered above; I have spent that time in minutes in the direct care of this critically ill patient, excluding procedure time. ED Disposition Clinical Impression: Acute exacerbation of chronic low back pain, Spasm of muscle of lower back Disposition: 01 HOME / SELF CARE / HOMELESS Is pt being admited?: No Does the pt Need Aspirin: No Condition: Stable Instructions: Muscle Cramps and Spasms, [id number], Back Injury Prevention, Jirr-hq-Fjvo, Chronic Back Pain, [id number] Additional Instructions: The L-spine x-ray showed no acute fractures or subluxations. Your injuries are likely musculoskeletal following the fall injury. Therefore take medication with food, drink plenty of fluids and follow-up with your primary care physician in 7 to 10 days for reevaluation. Return to the ED immediately if symptoms get worse. Prescriptions: predniSONE [Deltasone] 40 mg PO QDAY #10 tab Cyclobenzaprine [Flexeril] 10 mg PO Q8H PRN #30 tab PRN Reason: Muscle Spasm Ibuprofen [Motrin 800 MG tab] 800 mg PO Q8HR PRN #30 tablet PRN Reason: pain traMADoL [Ultram] 50 mg PO Q6HR PRN #12 tablet PRN Reason: Pain Referrals: [facility] [Provider Group] - 7-10 days Forms: Work/School Release Form(ED) Time of Disposition: 01:20 Print Language: SWISS
[2021-05-07 03:14] VITALS: BP 122/66
== END 2021-05-07 02:45 | disposition home or self-care (01) ==
LOC: ED 21:49
DX: M54.41 Lumbago with sciatica, right side (principal); M54.42 Lumbago with sciatica, left side; M62.830 Muscle spasm of back; J45.909 Unspecified asthma, uncomplicated; Z98.890 Other specified postprocedural states; Z88.2 Allergy status to sulfonamides; Z88.8 Allergy status to other drugs, medicaments and biological substances; Z79.899 Other long term (current) drug therapy; Z91.018 Allergy to other foods; W17.89XA Other fall from one level to another, initial encounter; Y93.89 Activity, other specified; Y92.89 Other specified places as the place of occurrence of the external cause; Y99.8 Other external cause status
CPT/HCPCS: 72100; 99283; J3490; Q0162

== ENCOUNTER 2021-07-06 13:50 | Emergency (ER) | payer OTHER ==
--- NOTE | 2021-07-06 18:06 | Emergency Department Report ---
- General Chief Complaint: Upper Respiratory Infection Stated Complaint: HARD TO BREATH/CHEST PAINS Source: patient Mode of arrival: Ambulatory Limitations: No Limitations - History of Present Illness Initial Comments: 45-year-old female presents to the ED complaining of fullness to the ears , facial pain and cough that has worsened over the last 4 days. Patient states that she deals with allergies issues. States that she take Benadryl on a regular, she states that she has had similar complaints in the past and usually has to take azithromycin to relieve symptoms. Patient denies any shortness of breath ,chest pain or abdominal pain. Patient is alert and oriented x3. No acute distress noted. No ill appearance noted. MD Complaint: cough, nasal congestion, sinus pain Onset/Timin -: days(s) Severity scale (0 -10): 7 Quality: aching Consistency: intermittent Improves With: nothing Associated Symptoms: denies other symptoms Treatments Prior to Arrival: none - Related Data Previous Rx's Medication Instructions Recorded Last Taken Type Albuterol Sulfate [Ventolin HFA] 2 puff IH Q4H PRN #1 hfa.aer.ad 11/16/17 Unkn own Rx Dicyclomine [Bentyl] 10 mg PO QID PRN #10 capsule 11/22/17 Unknown Rx Chlorhexidine Gluconate [Hibiclens] 10 ml TP BID #240 liquid 08/24/18 Unknown Rx Ibuprofen [Motrin 600 MG tab] 600 mg PO Q8H PRN #20 tablet 08/05/19 Unknown Rx Ondansetron [Zofran ODT TAB] 4 mg PO Q8HR PRN #20 tab.rapdis 04/13/20 Unknown Rx Tamsulosin [Flomax] 0.4 mg PO QDAY #5 cap 04/13/20 Unknown Rx Ketorolac [Toradol] 10 mg PO Q6H PRN #10 tablet 06/25/20 Unknown Rx Nicotine [Habitrol] 14 mg TD QDAY #14 patch 06/25/20 Unknown Rx Acetaminophen/Codeine [Tylenol 1 tab PO Q6H PRN #12 tab 06/30/20 Unknown Rx /Codeine # 3 tab] Azithromycin [Zithromax TAB] 500 mg PO QDAY 5 Days #5 tablet 06/30/20 Unknown Rx methylPREDNISolone [Medrol 4MG 4 mg PO DAILY 6 Days #1 tab.ds.pk 06/30/20 Unknown Rx DOSEPAK (21 tabs)] Acetaminophen/Codeine [Tylenol 1 tab PO Q8H PRN #10 tab 04/01/21 Unknown Rx /Codeine # 3 tab] Clindamycin [Clindamycin CAP] 300 mg PO Q6H 10 Days #40 cap 04/01/21 Unknown Rx Mupirocin [Bactroban 2% OINT] 1 applic TP TID 10 Days #1 tube 04/01/21 Unknown Rx Cyclobenzaprine [Flexeril] 10 mg PO Q8H PRN #30 tab 05/07/21 Unknown Rx Ibuprofen [Motrin 800 MG tab] 800 mg PO Q8HR PRN #30 tablet 05/07/21 Unknown Rx predniSONE [Deltasone] 40 mg PO QDAY #10 tab 05/07/21 Unknown Rx traMADoL [Ultram] 50 mg PO Q6HR PRN #12 tablet 05/07/21 Unknown Rx Azithromycin [Zithromax TAB] 250 mg PO QDAY 5 Days #6 tablet 07/06/21 Unknown Rx Brompheniramine/Pseudoephed/Dm 5 ml PO BID 5 Days #118 ml 07/06/21 Unknown Rx [Bromfed Dm Cough Syrup] predniSONE [Deltasone] 50 mg PO QDAY 5 Days #5 tab 07/06/21 Unknown Rx Allergies Allergy/AdvReac Type Severity Reaction Status Date / Time oats Allergy Intermediate Hives Verified 04/01/21 13:23 sulfamethoxazole AdvReac Hives Verified 04/01/21 13:23 [From Bactrim] trimethoprim [From Bactrim] AdvReac Hives Verified 04/01/21 13:23 ED Review of Systems ROS: Stated complaint: HARD TO BREATH/CHEST PAINS Other details as noted in HPI Constitutional: denies: chills, fever Eyes: denies: eye pain, eye discharge, vision change ENT: ear pain, congestion Respiratory: cough Cardiovascular: denies: chest pain, palpitations Endocrine: no symptoms reported Gastrointestinal: denies: abdominal pain, nausea, diarrhea Genitourinary: denies: urgency, dysuria, discharge Musculoskeletal: denies: back pain, joint swelling, arthralgia Skin: denies: rash, lesions Neurological: denies: headache, weakness, paresthesias Psychiatric: denies: anxiety, depression Hematological/Lymphatic: denies: easy bleeding, easy bruising ED Past Medical Hx - Past Medical History Previous Medical History?: Yes Hx Congestive Heart Failure: No Hx Diabetes: No Hx Deep Vein Thrombosis: Yes (Sounds dubious, never on anticoagulation now states cellulitis) Hx Pulmonary Embolism: No Hx Renal Disease: No Hx Kidney Stones: Yes Hx Asthma: Yes Hx COPD: No Hx Tuberculosis: Yes (States she is a carrier) Hx HIV: No Additional medical history: Cervical Ca - Finished Tx - Surgical History Past Surgical History?: Yes Hx Coronary Stent: No Hx Pacemaker: No Hx Internal Defibrillator: No Additional Surgical History: Oral - Social History Smoking Status: Former Smoker Substance Use Type: None - Medications Home Medications: Home Medications Medication Instructions Recorded Confirmed Last Taken Type Albuterol Sulfate [Ventolin HFA] 2 puff IH Q4H PRN #1 hfa.aer.ad 11/16/17 Unknown Rx Dicyclomine [Bentyl] 10 mg PO QID PRN #10 capsule 11/22/17 Unknown Rx Chlorhexidine Gluconate [Hibiclens] 10 ml TP BID #240 liquid 08/24/18 Unknown Rx Ibuprofen [Motrin 600 MG tab] 600 mg PO Q8H PRN #20 tablet 08/05/19 Unknown Rx Ondansetron [Zofran ODT TAB] 4 mg PO Q8HR PRN #20 tab.rapdis 04/13/20 Unknown Rx Tamsulosin [Flomax] 0.4 mg PO QDAY #5 cap 04/13/20 Unknown Rx Ketorolac [Toradol] 10 mg PO Q6H PRN #10 tablet 06/25/20 Unknown Rx Nicotine [Habitrol] 14 mg TD QDAY #14 patch 06/25/20 Unknown Rx Acetaminophen/Codeine [Tylenol 1 tab PO Q6H PRN #12 tab 06/30/20 Unknown Rx /Codeine # 3 tab] Azithromycin [Zithromax TAB] 500 mg PO QDAY 5 Days #5 tablet 06/30/20 Unknown Rx methylPREDNISolone [Medrol 4MG 4 mg PO DAILY 6 Days #1 tab.ds.pk 06/30/20 Unknown Rx DOSEPAK (21 tabs)] Acetaminophen/Codeine [Tylenol 1 tab PO Q8H PRN #10 tab 04/01/21 Unknown Rx /Codeine # 3 tab] Clindamycin [Clindamycin CAP] 300 mg PO Q6H 10 Days #40 cap 04/01/21 Unknown Rx Mupirocin [Bactroban 2% OINT] 1 applic TP TID 10 Days #1 tube 04/01/21 Unknown Rx Cyclobenzaprine [Flexeril] 10 mg PO Q8H PRN #30 tab 05/07/21 Unknown Rx Ibuprofen [Motrin 800 MG tab] 800 mg PO Q8HR PRN #30 tablet 05/07/21 Unknown Rx predniSONE [Deltasone] 40 mg PO QDAY #10 tab 05/07/21 Unknown Rx traMADoL [Ultram] 50 mg PO Q6HR PRN #12 tablet 05/07/21 Unknown Rx Azithromycin [Zithromax TAB] 250 mg PO QDAY 5 Days #6 tablet 07/06/21 Unknown Rx Brompheniramine/Pseudoephed/Dm 5 ml PO BID 5 Days #118 ml 07/06/21 Unknown Rx [Bromfed Dm Cough Syrup] predniSONE [Deltasone] 50 mg PO QDAY 5 Days #5 tab 07/06/21 Unknown Rx ED Physical Exam - General Limitations: No Limitations General appearance: alert, in no apparent distress - Head Head exam: Present: atraumatic, normocephalic - Eye Eye exam: Present: normal appearance - ENT ENT exam: Present: mucous membranes moist - Expanded ENT Exam Expanded TM/Canal exam: Effusion: Right TM, Left TM, Mastoid Tenderness: Right TM, Left TM (Maxillary) - Neck Neck exam: Present: normal inspection - Respiratory Respiratory exam: Present: normal lung sounds bilaterally. Absent: respiratory distress - Cardiovascular Cardiovascular Exam: Present: regular rate, normal rhythm. Absent: systolic murmur, diastolic murmur, rubs, gallop - GI/Abdominal GI/Abdominal exam: Present: soft, normal bowel sounds - Extremities Exam Extremities exam: Present: normal inspection - Back Exam Back exam: Present: normal inspection - Neurological Exam Neurological exam: Present: alert, oriented X3 - Psychiatric Psychiatric exam: Present: normal affect, normal mood - Skin Skin exam: Present: warm, dry, intact, normal color. Absent: rash ED Course Vital Signs 07/06/21 14:57 Temperature 98.8 F Pulse Rate 94 H Respiratory 20 Rate Blood Pressure 134/86 O2 Sat by Pulse 96 Oximetry ED Medical Decision Making - Medical Decision Making 45-year-old female presents to the ED complaining of fullness to the ears , facial pain and cough that has worsened over the last 4 days. Patient states that she deals with allergies issues. States that she take Benadryl on a regular, she states that she has had similar complaints in the past and usually has to take azithromycin to relieve symptoms. Patient denies any shortness of breath ,chest pain or abdominal pain. Patient is alert and oriented x3. No acute distress noted. No ill appearance noted. Physical examination patient has middle ear effusion and maxillary tenderness upon palpation. Rechecked the patient is resting quietly quietly and comfortable and feeling better. I discussed the results of diagnostic study, my clinical impression and the plan for further treatment with the patient. Patient agrees with plan and discharge at this present time. All question addressed. I have given the patient instruction regarding a diagnosis ,expectation ,follow- up and return precaution. I explained to the patient that emergent condition may arise and to return to the ED for new worsen and any new persisting condition. I have explained the importance of following up with the primary care physician or referral physician listed below has instructed. The patient verbalized understanding of discharge instruction. Critical care attestation.: If time is entered above; I have spent that time in minutes in the direct care of this critically ill patient, excluding procedure time. ED Disposition Clinical Impression: Maxillary sinusitis, acute Qualifiers: Recurrence: recurrent Qualified Code(s): J01.01 - Acute recurrent maxillary sinusitis Disposition: HOME / SELF CARE / HOMELESS Is pt being admited?: No Does the pt Need Aspirin: No Condition: Stable Instructions: Sinusitis, Adult, [id number] Additional Instructions: Take medication as prescribed Return to ED for any worsening symptom Prescriptions: Brompheniramine/Pseudoephed/Dm [Bromfed Dm Cough Syrup] 5 ml PO BID 5 Days #118 ml predniSONE [Deltasone] 50 mg PO QDAY 5 Days #5 tab Azithromycin [Zithromax TAB] 250 mg PO QDAY 5 Days #6 tablet Referrals: [facility] [Provider Group] - 3-5 Days Forms: Work/School Release Form(ED) Time of Disposition: 18:11
[2021-07-06 18:24] VITALS: BP 124/78
== END 2021-07-06 18:24 | disposition home or self-care (01) ==
LOC: ED 13:50
DX: J01.00 Acute maxillary sinusitis, unspecified (principal); Z87.891 Personal history of nicotine dependence; Z88.2 Allergy status to sulfonamides; Z91.018 Allergy to other foods
CPT/HCPCS: 99282

== ENCOUNTER 2021-07-10 21:41 | Emergency (ER) | payer OTHER ==
[2021-07-10 21:55] VITALS: BP 138/84
[2021-07-11] MEDS ORDERED: IBUPROFEN 800 MG TAB PO ONE (04:36)
--- NOTE | 2021-07-11 04:59 | XRay Report ---
CHEST 2 VIEWS INDICATION / CLINICAL INFORMATION: cough fever. COMPARISON: 07/08/2020 FINDINGS: SUPPORT DEVICES: None. HEART / MEDIASTINUM: No significant abnormality. LUNGS / PLEURA: No significant pulmonary or pleural abnormality. No pneumothorax. ADDITIONAL FINDINGS: No significant additional findings. IMPRESSION: 1. No acute findings. Signer Name: Fede Friend DO Signed: 07/11/2021 4:55 AM Workstation Name: [id number]
--- NOTE | 2021-07-11 05:24 | Emergency Department Report ---
ED General Adult HPI - General Chief complaint: Upper Respiratory Infection Stated complaint: HAVING TROUBLE BREATHING Time Seen by Provider: 07/11/21 04:21 Source: patient Mode of arrival: Ambulatory Limitations: No Limitations - History of Present Illness Initial comments: Patient 45-year-old female history of asthma who presents with cough and wheezin g x2 days. Patient denies fevers or chills no nausea no vomiting. No chest pain. There is no sore throat or ear pain. Cough is productive clear. There is no audible wheezing at this time. Symptoms are exacerbated by environmental exposure. Symptoms are relieved by nothing tried. Severity scale (0 -10): 0 - Related Data Previous Rx's Medication Instructions Recorded Last Taken Type Albuterol Sulfate [Ventolin HFA] 2 puff IH Q4H PRN #1 hfa.aer.ad 11/16/17 Unknown Rx Dicyclomine [Bentyl] 10 mg PO QID PRN #10 capsule 11/22/17 Unknown Rx Chlorhexidine Gluconate [Hibiclens] 10 ml TP BID #240 liquid 08/24/18 Unknown Rx Ibuprofen [Motrin 600 MG tab] 600 mg PO Q8H PRN #20 tablet 08/05/19 Unknown Rx Ondansetron [Zofran ODT TAB] 4 mg PO Q8HR PRN #20 tab.rapdis 04/13/20 Unknown Rx Tamsulosin [Flomax] 0.4 mg PO QDAY #5 cap 04/13/20 Unknown Rx Ketorolac [Toradol] 10 mg PO Q6H PRN #10 tablet 06/25/20 Unknown Rx Nicotine [Habitrol] 14 mg TD QDAY #14 patch 06/25/20 Unknown Rx Acetaminophen/Codeine [Tylenol 1 tab PO Q6H PRN #12 tab 06/30/20 Unknown Rx /Codeine # 3 tab] Azithromycin [Zithromax TAB] 500 mg PO QDAY 5 Days #5 tablet 06/30/20 Unknown Rx methylPREDNISolone [Medrol 4MG 4 mg PO DAILY 6 Days #1 tab.ds.pk 06/30/20 Unknown Rx DOSEPAK (21 tabs)] Acetaminophen/Codeine [Tylenol 1 tab PO Q8H PRN #10 tab 04/01/21 Unknown Rx /Codeine # 3 tab] Clindamycin [Clindamycin CAP] 300 mg PO Q6H 10 Days #40 cap 04/01/21 Unknown Rx Mupirocin [Bactroban 2% OINT] 1 applic TP TID 10 Days #1 tube 04/01/21 Unknown Rx Cyclobenzaprine [Flexeril] 10 mg PO Q8H PRN #30 tab 05/07/21 Unknown Rx Ibuprofen [Motrin 800 MG tab] 800 mg PO Q8HR PRN #30 tablet 05/07/21 Unknown Rx predniSONE [Deltasone] 40 mg PO QDAY #10 tab 05/07/21 Unknown Rx traMADoL [Ultram] 50 mg PO Q6HR PRN #12 tablet 05/07/21 Unknown Rx Azithromycin [Zithromax TAB] 250 mg PO QDAY 5 Days #6 tablet 07/06/21 Unknown Rx Brompheniramine/Pseudoephed/Dm 5 ml PO BID 5 Days #118 ml 07/06/21 Unknown Rx [Bromfed Dm Cough Syrup] predniSONE [Deltasone] 50 mg PO QDAY 5 Days #5 tab 07/06/21 Unknown Rx predniSONE [Deltasone] 40 mg PO QDAY 5 Days #10 tab 07/11/21 Unknown Rx Allergies Allergy/AdvReac Type Severity Reaction Status Date / Time oats Allergy Intermediate Hives Verified 04/01/21 13:23 sulfamethoxazole AdvReac Hives Verified 04/01/21 13:23 [From Bactrim] trimethoprim [From Bactrim] AdvReac Hives Verified 04/01/21 13:23 ED Review of Systems ROS: Stated complaint: HAVING TROUBLE BREATHING Other details as noted in HPI Constitutional: denies: chills, fever Eyes: denies: eye pain, eye discharge, vision change ENT: congestion. denies: ear pain, throat pain Respiratory: cough, shortness of breath, wheezing Cardiovascular: as per HPI. denies: chest pain, palpitations Endocrine: no symptoms reported Gastrointestinal: denies: abdominal pain, nausea, vomiting, diarrhea Genitourinary: denies: urgency, dysuria, discharge Musculoskeletal: denies: back pain, joint swelling, arthralgia Skin: denies: rash, lesions Neurological: denies: headache, weakness, paresthesias, vertigo Psychiatric: as per HPI Hematological/Lymphatic: denies: easy bleeding, easy bruising ED Past Medical Hx - Past Medical History Previous Medical History?: Yes Hx Congestive Heart Failure: No Hx Diabetes: No Hx Deep Vein Thrombosis: Yes (Sounds dubious, never on anticoagulation now states cellulitis) Hx Pulmonary Embolism: No Hx Renal Disease: No Hx Kidney Stones: Yes Hx Asthma: Yes Hx COPD: No Hx Tuberculosis: Yes (States she is a carrier) Hx HIV: No Additional medical history: Cervical Ca - Finished Tx - Surgical History Past Surgical History?: Yes Hx Coronary Stent: No Hx Pacemaker: No Hx Internal Defibrillator: No Additional Surgical History: Oral - Social History Smoking Status: Never Smoker Substance Use Type: None - Medications Home Medications: Home Medications Medication Instructions Recorded Confirmed Last Taken Type Albuterol Sulfate [Ventolin HFA] 2 puff IH Q4H PRN #1 hfa.aer.ad 11/16/17 Unknown Rx Dicyclomine [Bentyl] 10 mg PO QID PRN #10 capsule 11/22/17 Unknown Rx Chlorhexidine Gluconate [Hibiclens] 10 ml TP BID #240 liquid 08/24/18 Unknown Rx Ibuprofen [Motrin 600 MG tab] 600 mg PO Q8H PRN #20 tablet 08/05/19 Unknown Rx Ondansetron [Zofran ODT TAB] 4 mg PO Q8HR PRN #20 tab.rapdis 04/13/20 Unknown Rx Tamsulosin [Flomax] 0.4 mg PO QDAY #5 cap 04/13/20 Unknown Rx Ketorolac [Toradol] 10 mg PO Q6H PRN #10 tablet 06/25/20 Unknown Rx Nicotine [Habitrol] 14 mg TD QDAY #14 patch 06/25/20 Unknown Rx Acetaminophen/Codeine [Tylenol 1 tab PO Q6H PRN #12 tab 06/30/20 Unknown Rx /Codeine # 3 tab] Azithromycin [Zithromax TAB] 500 mg PO QDAY 5 Days #5 tablet 06/30/20 Unknown Rx methylPREDNISolone [Medrol 4MG 4 mg PO DAILY 6 Days #1 tab.ds.pk 06/30/20 Unknown Rx DOSEPAK (21 tabs)] Acetaminophen/Codeine [Tylenol 1 tab PO Q8H PRN #10 tab 04/01/21 Unknown Rx /Codeine # 3 tab] Clindamycin [Clindamycin CAP] 300 mg PO Q6H 10 Days #40 cap 04/01/21 Unknown Rx Mupirocin [Bactroban 2% OINT] 1 applic TP TID 10 Days #1 tube 04/01/21 Unknown Rx Cyclobenzaprine [Flexeril] 10 mg PO Q8H PRN #30 tab 05/07/21 Unknown Rx Ibuprofen [Motrin 800 MG tab] 800 mg PO Q8HR PRN #30 tablet 05/07/21 Unknown Rx predniSONE [Deltasone] 40 mg PO QDAY #10 tab 05/07/21 Unknown Rx traMADoL [Ultram] 50 mg PO Q6HR PRN #12 tablet 05/07/21 Unknown Rx Azithromycin [Zithromax TAB] 250 mg PO QDAY 5 Days #6 tablet 07/06/21 Unknown Rx Brompheniramine/Pseudoephed/Dm 5 ml PO BID 5 Days #118 ml 07/06/21 Unknown Rx [Bromfed Dm Cough Syrup] predniSONE [Deltasone] 50 mg PO QDAY 5 Days #5 tab 07/06/21 Unknown Rx predniSONE [Deltasone] 40 mg PO QDAY 5 Days #10 tab 07/11/21 Unknown Rx ED Physical Exam - General Limitations: No Limitations General appearance: alert, in no apparent distress - Head Head exam: Present: normocephalic, normal inspection - Eye Eye exam: Present: normal appearance, PERRL, EOMI. Absent: conjunctival injection, nystagmus Pupils: Present: normal accommodation - ENT ENT exam: Present: normal orophraynx, mucous membranes moist, TM's normal bilaterally, normal external ear exam - Neck Neck exam: Present: normal inspection, full ROM. Absent: tenderness, meningismus, lymphadenopathy, thyromegaly - Respiratory Respiratory exam: Present: normal lung sounds bilaterally. Absent: respiratory distress, wheezes, rales, rhonchi - Cardiovascular Cardiovascular Exam: Present: regular rate, normal rhythm, normal heart sounds. Absent: systolic murmur, diastolic murmur, rubs, gallop - GI/Abdominal GI/Abdominal exam: Present: soft, normal bowel sounds. Absent: distended, tenderness - Rectal Rectal exam: Present: deferred - Extremities Exam Extremities exam: Present: normal inspection, full ROM, normal capillary refill. Absent: tenderness - Back Exam Back exam: Present: normal inspection, full ROM. Absent: CVA tenderness (R), CVA tenderness (L) - Neurological Exam Neurological exam: Present: alert, oriented X3, CN II-XII intact - Expanded Neurological Exam Expanded Patient oriented to: Present: person, place, time Speech: Present: fluid speech Best Eye Response ([place]): (4) open spontaneously Best Motor Response ([place]): (6) obeys commands Best Verbal Response ([place]): (5) oriented [place] Total: 15 - Psychiatric Psychiatric exam: Present: normal affect, normal mood, manic - Skin Skin exam: Present: warm, dry, intact, normal color. Absent: rash ED Course Vital Signs 07/10/21 07/11/21 21:54 04:53 Temperature 98.4 F Pulse Rate 90 Respiratory 18 Rate Respiratory 14 Rate [Posterior Bilateral Throughout] Blood Pressure 138/84 [Right] O2 Sat by Pulse 97 Oximetry - Reevaluation(s) Reevaluation #1: Albuterol, Decadron, ibuprofen breathing is improved. There is no wheezing no fever no chills patient is amatory without increased shortness of breath. Patient will be DC'd home in stable condition at this time. 07/11/21 05:24 ED Medical Decision Making - Radiology Data Radiology results: report reviewed, image reviewed CHEST 2 VIEWS INDICATION / CLINICAL INFORMATION: cough fever. COMPARISON: 07/08/2020 FINDINGS: SUPPORT DEVICES: None. HEART / MEDIASTINUM: No significant abnormality. LUNGS / PLEURA: No significant pulmonary or pleural abnormality. No pneumothorax. ADDITIONAL FINDINGS: No significant additional findings. IMPRESSION: 1. No acute findings. Signer Name: Fede Friend DO Signed: 07/11/2021 4:55 AM Workstation Name: [id number] Transcribed By: ABDI Dictated By: FEDE FRIEND DO Electronically Authenticated By: FEDE FRIEND DO Signed Date/Time: 07/11/21454 DD/ 3 TD/TT: - Medical Decision Making Chest x-ray negative for infiltrates or opacities. Breathing is improved after medication given in ED plan DC to home. Diagnosis asthma, DC with prescriptions. Follow-up with your doctor in 2 to 3 days return to emergency should symptoms worsen. Critical care attestation.: If time is entered above; I have spent that time in minutes in the direct care of this critically ill patient, excluding procedure time. ED Disposition Clinical Impression: Wheezing, Asthma Disposition: 01 HOME / SELF CARE / HOMELESS Is pt being admited?: No Does the pt Need Aspirin: No Condition: Stable Instructions: Shortness of Breath, Adult, [id number], Asthma (ED) Additional Instructions: Take medications as prescribed, follow-up with your doctor in 2 to 3 days. Return to emergency department should symptoms worsen. Prescriptions: predniSONE [Deltasone] 40 mg PO QDAY 5 Days #10 tab Referrals: PRIMARY CARE, [Primary Care Provider] - 3-5 Days Forms: Work/School Release Form(ED) Time of Disposition: 05:36
[2021-07-11] MEDS ORDERED: ALBUTEROL 2.5 MG/3 ML NEBU IH SCH (08:00)
== END 2021-07-11 05:41 | disposition home or self-care (01) ==
LOC: ED 21:41
DX: J45.909 Unspecified asthma, uncomplicated (principal); Z98.890 Other specified postprocedural states; Z88.2 Allergy status to sulfonamides; Z88.8 Allergy status to other drugs, medicaments and biological substances; Z91.018 Allergy to other foods; Z79.899 Other long term (current) drug therapy
CPT/HCPCS: 71046; 94640; 94644; 99283